=== PATIENT | female | born 1960 | race Caucasian/White ===

== ENCOUNTER 2021-10-10 09:41 | Outpatient (REF) | payer OTHER, SELFPAY ==
[2021-10-10 10:20] LABS: MANUAL DIFF FLAG NO
[2021-10-10 10:41] LABS: Basophils Percent Auto 0.3 % (0-2); Eosinophils Absolute Auto 0.2 X10*3/uL (0.0-0.4); Eosinophils Percent Auto 2.4 % (0-4); Hematocrit 38.7 % (37.0-47.0); Hemoglobin 12.4 g/dl (12.0-16.0); Imm Gran Abs Auto 0.04 X10*3/uL (0.00-0.03); Imm Gran Pct Auto 0.5 % (0.0-0.4); Lymphocytes Absolute Auto 1.7 X10*3/uL (1.2-4.9); Lymphocytes Percent Auto 21.9 % (20-40); Mean Corpuscular Hemoglobin 28.9 pg (27.0-33.0); Mean Corpuscular Volume 90.2 fL (80.0-98.0); Mean Platelet Volume 9.6 fL (9.4-12.3); Monocytes Absolute Auto 0.5 X10*3/uL (0.1-1.2); Neutrophils Absolute Auto 5.1 x10*3/uL (2.0-8.3); Neutrophils Percent Auto 67.9 % (45-73); Platelet Count 384 X10*3/uL (160-400); Red Blood Count 4.29 X10*6/uL (4.20-5.50); Red Cell Distribution Width 13.2 % (11.0-16.0); White Blood Count 7.6 X10*3/uL (4.8-10.8)
[2021-10-10 10:58] LABS: Appearance Urine CLEAR; Color Urine STRAW; Glucose Urine UA NEG (NEG); Leukocyte Esterase Urine 1+ (NEG); Nitrite Urine NEG (NEG); PH 6.5 (5.0-8.0); UACC Culture Trigger YES; Urine Blood NEG (NEG); Urine Ketones NEG (NEG); Urine Protein NEG (NEG-TRACE)
[2021-10-10 11:17] LABS: Alanine Aminotransferase 13 U/L (0-31); Albumin Level 4.6 g/dL (3.5-5.0); Alkaline Phosphatase 115 U/L (39-117); Anion Gap 12 (12-20); Aspartate Amino Transferase 17 U/L (5-31); Bilirubin Total 0.3 mg/dL (0.0-1.0); Blood Urea Nitrogen 18 mg/dL (9-16); Carbon Dioxide 26 mmol/L (22-29); Chloride 107 mmol/L (96-108); Cholesterol 228 mg/dL; Estimated Glomerular Filt Rate 55; Glucose Fasting 90 mg/dL (60-99); HDL Cholesterol 63 mg/dL; LDL Cholesterol Calculated 149 mg/dl; Potassium 4.7 mmol/L (3.3-5.1); Sodium 140 mmol/L (135-145); Total Protein 8.1 g/dL (6.5-8.0); Triglycerides 83 mg/dL
[2021-10-10 11:21] LABS: Bacteria Urine 1+ /LPF; RBC Urine 0 /HPF (0); Squamous Epithelial Cell Urine 1+ /LPF; WBC Urine 0-2 /HPF (0-4)
[2021-10-10 11:23] LABS: Free T4 (Free Thyroxine) 0.97 ng/dL (0.71-1.85); Thyroid Stimulating Hormone 10.76 uIU/mL (0.32-4.0); Vitamin D 25-OH Total 36.6 ng/mL (>30)
[2021-10-10 11:25] LABS: Calcium 11.4 mg/dL (8.4-10.2)
[2021-10-10 11:35] LABS: Estimated Average Glucose 114 mg/dL; Hemoglobin A1c % 5.6 %
== END 2021-10-10 09:42 | disposition home or self-care (01) ==
LOC: HO.LAB 09:41
PROVIDERS: PCP Internal Medicine; Visit Provider Internal Medicine
DX: I10 Essential (primary) hypertension (principal); E78.00 Pure hypercholesterolemia, unspecified; R63.1 Polydipsia; R73.9 Hyperglycemia, unspecified; E03.9 Hypothyroidism, unspecified; E55.9 Vitamin D deficiency, unspecified
CPT/HCPCS: 36415; 80053; 80061; 81001; 81003; 82306; 83036; 84439; 84443; 85025; 87086

== ENCOUNTER 2021-10-24 15:52 | Outpatient (REF) | payer OTHER, SELFPAY ==
[2021-10-24 16:42] LABS: Appearance Urine CLEAR; Color Urine YELLOW; Glucose Urine UA NEG (NEG); Leukocyte Esterase Urine 1+ (NEG); Nitrite Urine NEG (NEG); PH 5.5 (5.0-8.0); Specific Gravity - Urine <= 1.005 (1.005-1.025); UACC Culture Trigger YES; Urine Blood NEG (NEG); Urine Ketones NEG (NEG); Urine Protein NEG (NEG-TRACE)
[2021-10-24 16:51] LABS: Bacteria Urine TRACE /LPF; Squamous Epithelial Cell Urine 1+ /LPF
[2021-10-24 16:52] LABS: RBC Urine 0 /HPF (0)
[2021-10-25 07:41] LABS: HBsAGNum1 0.21 S/CO (0.00-0.99); Hepatitis B Surface Antigen Negative (Negative); ~HepC Num1 0.09 S/CO (0.00-0.79); ~Hepatitis C Antibody Nonreactive (Nonreactive)
[2021-10-25 07:56] LABS: HBS Num1 0.05 mIU/mL (0-7.99); HBc Num1 0.09 S/CO (0.00-0.79); HIV AB/AG Nonreactive (Nonreactive); HIV Num 1 0.05 S/CO (0.00-0.99); Hepatitis B Core Antibody Nonreactive (Nonreactive); ~Hepatitis B Surface Antibody NONREACTIVE (Nonreactive)
== END 2021-10-24 15:53 | disposition home or self-care (01) ==
LOC: HO.LAB 15:52
PROVIDERS: PCP Internal Medicine; Visit Provider Internal Medicine
DX: I10 Essential (primary) hypertension (principal); Z11.4 Encounter for screening for human immunodeficiency virus [HIV]; Z11.59 Encounter for screening for other viral diseases
CPT/HCPCS: 36415; 81001; 86704; 86706; 86803; 87086; 87340; 87389

== ENCOUNTER 2022-01-21 06:49 | Outpatient (REF) | payer OTHER, SELFPAY ==
[2022-01-21 07:36] LABS: Basophils Percent Auto 0.4 % (0-2); Imm Gran Abs Auto 0.03 X10*3/uL (0.00-0.03); Imm Gran Pct Auto 0.4 % (0.0-0.4); MANUAL DIFF FLAG SCAN; Mean Platelet Volume 10.2 fL (9.4-12.3); Monocytes Absolute Auto 0.6 X10*3/uL (0.1-1.2); Monocytes Percent Auto 7.5 % (2-11); PLT CLUMP 1; Red Cell Distribution Width 12.7 % (11.0-16.0); SCAN SMEAR FLAG 1
[2022-01-21 07:36] LABS: Appearance Urine CLEAR; Color Urine YELLOW; Glucose Urine UA NEG (NEG); Leukocyte Esterase Urine TRACE (NEG); Nitrite Urine NEG (NEG); PH 5.5 (5.0-8.0); Specific Gravity - Urine 1.025 (1.005-1.025); Urine Blood NEG (NEG); Urine Ketones NEG (NEG); Urine Protein NEG (NEG-TRACE)
[2022-01-21 07:38] LABS: Eosinophils Absolute Auto 0.1 X10*3/uL (0.0-0.4); Eosinophils Percent Auto 1.6 % (0-4); Hematocrit 35.4 % (37.0-47.0); Hemoglobin 11.7 g/dl (12.0-16.0); Lymphocytes Absolute Auto 1.4 X10*3/uL (1.2-4.9); Lymphocytes Percent Auto 18.5 % (20-40); Mean Corpuscular HGB Conc 33.1 g/dl (31.0-35.0); Mean Corpuscular Hemoglobin 29.4 pg (27.0-33.0); Mean Corpuscular Volume 88.9 fL (80.0-98.0); Neutrophils Absolute Auto 5.3 x10*3/uL (2.0-8.3); Neutrophils Percent Auto 71.6 % (45-73); Red Blood Count 3.98 X10*6/uL (4.20-5.50)
[2022-01-21 07:44] LABS: Squamous Epithelial Cell Urine 3+ /LPF
[2022-01-21 07:46] LABS: Bacteria Urine TRACE /LPF; RBC Urine 0-2 /HPF (0)
[2022-01-21 08:12] LABS: Alanine Aminotransferase 17 U/L (0-31); Albumin Level 4.2 g/dL (3.5-5.0); Alkaline Phosphatase 94 U/L (39-117); Anion Gap 11 (12-20); Aspartate Amino Transferase 16 U/L (5-31); Bilirubin Total 0.3 mg/dL (0.0-1.0); Blood Urea Nitrogen 20 mg/dL (9-16); Calcium 10.4 mg/dL (8.4-10.2); Carbon Dioxide 23 mmol/L (22-29); Chloride 109 mmol/L (96-108); Cholesterol 177 mg/dL; Estimated Glomerular Filt Rate > 60; Glucose Fasting 97 mg/dL (60-99); HDL Cholesterol 54 mg/dL; LDL Cholesterol Calculated 106 mg/dl; Lactate Dehydrogenase 173 U/L (122-220); Phosphorus 2.5 mg/dL (2.7-4.5); Potassium 4.3 mmol/L (3.3-5.1); Sodium 139 mmol/L (135-145); Total Protein 7.3 g/dL (6.5-8.0); Triglycerides 85 mg/dL
[2022-01-21 08:24] LABS: HBS Num1 2.49 mIU/mL (0-7.99); HBc Num1 0.06 S/CO (0.00-0.79); HBsAGNum1 0.16 S/CO (0.00-0.99); HIV AB/AG Nonreactive (Nonreactive); HIV Num 1 0.07 S/CO (0.00-0.99); Hepatitis B Core Antibody Nonreactive (Nonreactive); Hepatitis B Surface Antigen Negative (Negative); ~HepC Num1 0.07 S/CO (0.00-0.79); ~Hepatitis B Surface Antibody NONREACTIVE (Nonreactive); ~Hepatitis C Antibody Nonreactive (Nonreactive)
[2022-01-21 08:29] LABS: White Blood Count 7.4 X10*3/uL (4.8-10.8)
[2022-01-21 08:30] LABS: Platelet Count 306 X10*3/uL (160-400)
[2022-01-21 08:37] LABS: Free T4 (Free Thyroxine) 1.38 ng/dL (0.71-1.85); Thyroid Stimulating Hormone 1.56 uIU/mL (0.32-4.0); Vitamin D 25-OH Total 35.9 ng/mL (>30)
[2022-01-21 08:56] LABS: SLIDE REVIEW VERIFIED
[2022-01-22 14:11] LABS: Calcium (PTHI) 10.2 mg/dL (8.6-10.4); PTHI 114 pg/mL (16-77)
[2022-01-22 23:32] LABS: HCV Log PCR <1.18 NOT DETECTED Log IU/mL (NOT DETECTED); HepC Viral Load <15 NOT DETECTED IU/mL (NOT DETECTED)
[2022-01-26 02:42] LABS: Thyroxine Binding Globulin 16.7 mcg/mL (13.5-30.9)
[2022-01-26 16:31] LABS: Triiodothyronine T3 Reverse 15 ng/dL (8-25)
== END 2022-01-21 06:50 | disposition home or self-care (01) ==
LOC: HO.LAB 06:49
PROVIDERS: PCP Internal Medicine; Visit Provider Internal Medicine
DX: S61.239A Puncture wound without foreign body of unspecified finger without damage to nail, initial encounter (principal); I10 Essential (primary) hypertension; E55.9 Vitamin D deficiency, unspecified; R79.89 Other specified abnormal findings of blood chemistry; E03.9 Hypothyroidism, unspecified; E83.52 Hypercalcemia; E78.00 Pure hypercholesterolemia, unspecified; W46.0XXA Contact with hypodermic needle, initial encounter; Y93.9 Activity, unspecified; Y92.9 Unspecified place or not applicable; Y99.9 Unspecified external cause status
CPT/HCPCS: 36415; 80053; 80061; 81001; 82306; 83615; 83970; 84100; 84439; 84442; 84443; 84482; 85025; 86704; 86706; 86803; 87340; 87389; 87522

== ENCOUNTER 2022-02-07 17:32 | Emergency (ER) | payer OTHER, SELFPAY ==
[2022-02-07 17:46] VITALS: BP 140/71; PULSE 68; RESP 18; TEMP 36.5; O2SAT 97; BMI 38.7
[2022-02-07 19:16] LABS: MANUAL DIFF FLAG NO
[2022-02-07 19:17] LABS: Basophils Percent Auto 0.3 % (0-2); Eosinophils Absolute Auto 0.2 X10*3/uL (0.0-0.4); Hematocrit 33.6 % (37.0-47.0); Hemoglobin 11.2 g/dl (12.0-16.0); Imm Gran Abs Auto 0.02 X10*3/uL (0.00-0.03); Imm Gran Pct Auto 0.3 % (0.0-0.4); Lymphocytes Percent Auto 30.8 % (20-40); Mean Corpuscular HGB Conc 33.3 g/dl (31.0-35.0); Mean Corpuscular Hemoglobin 29.1 pg (27.0-33.0); Mean Corpuscular Volume 87.3 fL (80.0-98.0); Mean Platelet Volume 9.3 fL (9.4-12.3); Monocytes Absolute Auto 0.6 X10*3/uL (0.1-1.2); Monocytes Percent Auto 9.7 % (2-11); Neutrophils Absolute Auto 3.6 x10*3/uL (2.0-8.3); Neutrophils Percent Auto 55.9 % (45-73); Platelet Count 347 X10*3/uL (160-400); Red Blood Count 3.85 X10*6/uL (4.20-5.50); Red Cell Distribution Width 12.5 % (11.0-16.0); White Blood Count 6.4 X10*3/uL (4.8-10.8)
[2022-02-07 19:32] LABS: Alanine Aminotransferase 14 U/L (0-31); Albumin Level 4.1 g/dL (3.5-5.0); Alkaline Phosphatase 90 U/L (39-117); Anion Gap 10 (12-20); Aspartate Amino Transferase 17 U/L (5-31); Bilirubin Total 0.2 mg/dL (0.0-1.0); Blood Urea Nitrogen 22 mg/dL (9-16); Calcium 10.2 mg/dL (8.4-10.2); Carbon Dioxide 28 mmol/L (22-29); Chloride 105 mmol/L (96-108); Creatinine Clr Calc Pharmacy 51.5; Estimated Glomerular Filt Rate 50; Glucose Random 96 mg/dL (60-115); Potassium 4.5 mmol/L (3.3-5.1); Sodium 138 mmol/L (135-145)
[2022-02-07 21:08] VITALS: BP 152/59; PULSE 67; RESP 17; TEMP 36.9; O2SAT 98
--- NOTE | 2022-02-07 21:18 | ED_ITS ---
HPI - Extremity Problem General Chief complaint: General Medical Stated complaint: muscle cramps, dehydrated?, body pain Time Seen by Provider: 02/07/22 21:08 Source: patient Mode of arrival: ambulatory Limitations: no limitations History of Present Illness MD Complaint: other (leg cramps) Onset (ago): day(s) (3) Pain Consistency: intermittent Location: left, right and lower extremity Quality: aching and dull Radiation: none Relieving factors: nothing Exacerbating factors: nothing Associated symptoms: denies other symptoms Context: other (hx of similar bout in past was lyte imbalance) Related Data Previous Rx's Medication Instructions Recorded cholecalciferol (vitamin D3) 50 50 mcg PO DAILY #90 cap 03/13/21 mcg (2,000 unit) capsule hydrochlorothiazide 25 mg tablet 25 mg PO DAILY 90 Days #90 tab 10/10/21 levothyroxine 125 mcg tablet 125 mcg PO QAM #90 tab 11/20/21 valsartan 160 mg tablet 160 mg PO BID #180 tab 12/13/21 cyclobenzaprine 10 mg tablet 10 mg PO TID PRN #14 tab 02/07/22 Allergies Allergy/AdvReac Type Severity Reaction Status Date / Time vancomycin [VANCOMYCIN] Allergy Intermediate SWELLING Verified 02/07/22 17:49 levofloxacin [From Levaquin] Allergy Unknown RASH Verified 02/07/22 17:49 Review of Systems Review of Systems: Constitutional : No Weight loss, No Fever, No Chills, No Fatigue, No Malaise, no tick bites ENT/Mouth : No sore throat, No Rhinorrhea Eyes: No Eye Pain, No Swelling, No Redness Cardiovascular : No Chest Pain, No SOB, No Dyspnea on Exertion, No Orthopnea, No Edema, No Palpitations Respiratory : No Cough, No Sputum, No Wheezing Gastrointestinal : No Nausea, No Vomiting, No Diarrhea, No Constipation, No abdominal Pain, No Hematochezia, No Melena Genitourinary : No Dysuria, No Urinary Frequency, No Hematuria, Musculoskeletal : No joint pain, pos Myalgias, No Joint Swelling Skin : No Skin Lesions, No rash Neuro : No Weakness, No Numbness, No Dizziness, No Headache Psych : No Anxiety/Panic, No Depression Heme/Lymph: No Bruising, No Bleeding,No Lymphadenopathy Endocrine : No Polyuria, No Polydipsia All other systems reviewed and are negative PMFSH Past Medical History Attestation statement: The following information was validated with the patient. Medical History Acquired hypothyroidism Benign essential hypertension History of melanoma History of opioid abuse Hypercalcemia Obesity (BMI 30-39.9) Pure hypercholesterolemia Vitamin D deficiency Surgical History History of surgery Family History Family History Father No problems noted. Mother Cancer Other Mental health problem Substance abuse Social History Social History Housing: Apartment Alcohol intake: former Patient Tobacco Use Status: Former Tobacco user e-Cigarette/Vaping Use: Never Used Second Hand Smoke Exposure: Yes Advance Directives: No Advance Directives Information Provided: Yes Patient : No service: No Current occupational status: disabled Cognitive needs: No Hearing needs: No Vision needs: Yes Physical Exam Vital Signs: Vital Signs: Last Vital Signs Temp 98.4 F 02/07/22 21:08 Pulse 67 02/07/22 21:08 Resp 17 02/07/22 21:08 BP 152/59 H 02/07/22 21:08 Pulse Ox 98 02/07/22 21:08 BMI result Body Mass Index 38.7 Appearance: Alert. Oriented X3. No acute distress. Eyes: Pupils equal, round and reactive to light. ENT: Pharynx normal. Neck: Normal inspection. Neck supple. CVS: Normal heart rate and rhythm. Pulses normal. Respiratory: No respiratory distress. Breath sounds normal. Abdomen: Soft and nontender. Skin: Skin warm and dry. Normal skin color. Normal skin turgor. Extremities: No lower extremity edema. No calf ttp Mild thigh pain but no signs of rash distal NV intact able to walk compartments are soft and compressible Neuro: Oriented X 3. No motor deficit. No sensory deficit. Course Course Course Narrative: workup negative stable for DC MDM - Extremity (Nontraumatic) MDM Narrative Medical decision making narrative: 61 yo female hx of HLD, HTN, opiate abuse here with c/o leg cramps x 3 nights no recent GI illness, trauma, insect bites or tick bites - distal NV intact at this time. States last time this happened she had a lyte imbalance - lytes from triage normal will obtain COVID swab add on magnesium and RX flexeril. Will offer flexeril RX for home. Can follow up with PCP. Denies diuretic use at home Lab Data Result diagrams: 02/07/22 19:09 02/07/22 19:09 Labs: Lab Results 02/07/22 02/07/22 02/07/22 Range/Units 19:09 19:09 21:38 WBC 6.4 (4.8-10.8) X10*3/uL RBC 3.85 L (4.20-5.50) X10*6/uL Hgb 11.2 L (12.0-16.0) g/dl Hct 33.6 L (37.0-47.0) % MCV 87.3 (80.0-98.0) fL MCH 29.1 (27.0-33.0) pg MCHC 33.3 (31.0-35.0) g/dl RDW 12.5 (11.0-16.0) % Plt Count 347 (160-400) X10*3/uL MPV 9.3 L (9.4-12.3) fL Immature Gran % (Auto) 0.3 (0.0-0.4) % Neut % (Auto) 55.9 (45-73) % Lymph % (Auto) 30.8 (20-40) % [place] % (Auto) 9.7 (2-11) % Eos % (Auto) 3.0 (0-4) % Baso % (Auto) 0.3 (0-2) % Lymph # (Auto) 2.0 (1.2-4.9) X10*3/uL [place] # (Auto) 0.6 (0.1-1.2) X10*3/uL Eos # (Auto) 0.2 (0.0-0.4) X10*3/uL Baso # (Auto) 0.0 (0.0-0.2) X10*3/uL Abs Immat Gran (auto) 0.02 (0.00-0.03) X10*3/uL Absolute Neuts (auto) 3.6 (2.0-8.3) x10*3/uL Absolute Nucleated RBC 0.000 (0.0-0.012) X10*3/uL Nucleated RBC % (auto) 0.0 (0.0-0.2) /100WBC Sodium 138 (135-145) mmol/L Potassium 4.5 (3.3-5.1) mmol/L Chloride 105 (96-108) mmol/L Carbon Dioxide 28 (22-29) mmol/L Anion Gap 10 L (12-20) BUN 22 H (9-16) mg/dL Creatinine 1.10 (0.5-1.4) mg/dL Estim Creat Clear Calc 51.5 Estimated GFR 50 Random Glucose 96 (60-115) mg/dL Calcium 10.2 (8.4-10.2) mg/dL Magnesium 2.2 (1.6-2.6) mg/dL Total Bilirubin 0.2 (0.0-1.0) mg/dL AST 17 (5-31) U/L ALT 14 (0-31) U/L Alkaline Phosphatase 90 (39-117) U/L Total Creatine Kinase (26-140) U/L Total Protein 7.0 (6.5-8.0) g/dL Albumin 4.1 (3.5-5.0) g/dL COVID-19 (FEDE) Negative (Negative) COVID-19 Clin Com See Note 02/07/22 Range/Units 21:41 WBC (4.8-10.8) X10*3/uL RBC (4.20-5.50) X10*6/uL Hgb (12.0-16.0) g/dl Hct (37.0-47.0) % MCV (80.0-98.0) fL MCH (27.0-33.0) pg MCHC (31.0-35.0) g/dl RDW (11.0-16.0) % Plt Count (160-400) X10*3/uL MPV (9.4-12.3) fL Immature Gran % (Auto) (0.0-0.4) % Neut % (Auto) (45-73) % Lymph % (Auto) (20-40) % [place] % (Auto) (2-11) % Eos % (Auto) (0-4) % Baso % (Auto) (0-2) % Lymph # (Auto) (1.2-4.9) X10*3/uL [place] # (Auto) (0.1-1.2) X10*3/uL Eos # (Auto) (0.0-0.4) X10*3/uL Baso # (Auto) (0.0-0.2) X10*3/uL Abs Immat Gran (auto) (0.00-0.03) X10*3/uL Absolute Neuts (auto) (2.0-8.3) x10*3/uL Absolute Nucleated RBC (0.0-0.012) X10*3/uL Nucleated RBC % (auto) (0.0-0.2) /100WBC Sodium (135-145) mmol/L Potassium (3.3-5.1) mmol/L Chloride (96-108) mmol/L Carbon Dioxide (22-29) mmol/L Anion Gap (12-20) BUN (9-16) mg/dL Creatinine (0.5-1.4) mg/dL Estim Creat Clear Calc Estimated GFR Random Glucose (60-115) mg/dL Calcium (8.4-10.2) mg/dL Magnesium (1.6-2.6) mg/dL Total Bilirubin (0.0-1.0) mg/dL AST (5-31) U/L ALT (0-31) U/L Alkaline Phosphatase (39-117) U/L Total Creatine Kinase 121 (26-140) U/L Total Protein (6.5-8.0) g/dL Albumin (3.5-5.0) g/dL COVID-19 (FEDE) (Negative) COVID-19 Clin Com Discharge Plan Discharge Clinical Impression: Myalgia Patient Disposition: Home, Self-Care Instructions: Musculoskeletal Pain (ED) Additional Instructions: return to ED for any worsening symptoms or concerns no dehydration, no COVID, normal electrolytes Prescriptions: New cyclobenzaprine 10 mg tablet 10 mg PO TID PRN (Reason: muscle spasm) Qty: 14 0RF No Action cholecalciferol (vitamin D3) 50 mcg (2,000 unit) capsule 50 mcg PO DAILY Qty: 90 8RF levothyroxine 125 mcg tablet 125 mcg PO QAM Qty: 90 2RF valsartan 160 mg tablet 160 mg PO BID Qty: 180 1RF hydrochlorothiazide 25 mg tablet 25 mg PO DAILY 90 Days Qty: 90 1RF Referrals: Steven Dejesus MD [Primary Care Provider] - 3 days (if not better)
[2022-02-07] MEDS: Cyclobenzaprine HCl 10 MG TABLET PO (21:36)
[2022-02-07 21:54] LABS: Magnesium 2.2 mg/dL (1.6-2.6)
[2022-02-07 22:04] LABS: COVID-19 Test Negative (Negative)
== END 2022-02-07 22:45 | disposition home or self-care (01) ==
PROVIDERS: Emergency Provider Emergency Medicine; PCP Internal Medicine
DX: M79.10 Myalgia, unspecified site (principal); I10 Essential (primary) hypertension; Z20.822 Contact with and (suspected) exposure to COVID-19
CPT/HCPCS: 36415; 80053; 82550; 83735; 85025; 87635; 99283

== ENCOUNTER 2022-09-17 11:36 | Outpatient (REF) | payer OTHER, SELFPAY ==
[2022-09-17 11:50] LABS: MANUAL DIFF FLAG NO
[2022-09-17 12:05] LABS: Basophils Percent Auto 0.3 % (0-2); Eosinophils Absolute Auto 0.1 X10*3/uL (0.0-0.4); Eosinophils Percent Auto 1.9 % (0-4); Hematocrit 35.1 % (37.0-47.0); Hemoglobin 11.3 g/dl (12.0-16.0); Imm Gran Abs Auto 0.03 X10*3/uL (0.00-0.03); Imm Gran Pct Auto 0.4 % (0.0-0.4); Lymphocytes Absolute Auto 1.5 X10*3/uL (1.2-4.9); Lymphocytes Percent Auto 21.9 % (20-40); Mean Corpuscular HGB Conc 32.2 g/dl (31.0-35.0); Mean Corpuscular Hemoglobin 28.5 pg (27.0-33.0); Mean Corpuscular Volume 88.6 fL (80.0-98.0); Mean Platelet Volume 9.3 fL (9.4-12.3); Monocytes Absolute Auto 0.6 X10*3/uL (0.1-1.2); Neutrophils Absolute Auto 4.7 x10*3/uL (2.0-8.3); Neutrophils Percent Auto 67.5 % (45-73); Platelet Count 373 X10*3/uL (160-400); Red Blood Count 3.96 X10*6/uL (4.20-5.50); White Blood Count 6.9 X10*3/uL (4.8-10.8)
[2022-09-17 12:58] LABS: Alanine Aminotransferase 17 U/L (0-31); Albumin Level 4.3 g/dL (3.5-5.0); Alkaline Phosphatase 96 U/L (39-117); Anion Gap 11 (12-20); Aspartate Amino Transferase 19 U/L (5-31); Bilirubin Total 0.2 mg/dL (0.0-1.0); Blood Urea Nitrogen 27 mg/dL (9-16); Calcium 10.2 mg/dL (8.4-10.2); Carbon Dioxide 28 mmol/L (22-29); Chloride 108 mmol/L (96-108); Cholesterol 188 mg/dL; Estimated Glomerular Filt Rate 44; Free T4 (Free Thyroxine) 1.13 ng/dL (0.71-1.85); Glucose Fasting 72 mg/dL (60-99); HDL Cholesterol 56 mg/dL; LDL Cholesterol Calculated 114 mg/dl; Potassium 4.5 mmol/L (3.3-5.1); Sodium 142 mmol/L (135-145); Triglycerides 94 mg/dL
[2022-09-18 17:53] LABS: Calcium (PTHI) 10.1 mg/dL (8.6-10.4); PTHI 163 pg/mL (16-77)
== END 2022-09-17 11:37 | disposition home or self-care (01) ==
LOC: HO.LAB 11:36
PROVIDERS: PCP Internal Medicine; Visit Provider Internal Medicine
DX: E03.9 Hypothyroidism, unspecified (principal); E34.9 Endocrine disorder, unspecified; I10 Essential (primary) hypertension; E78.00 Pure hypercholesterolemia, unspecified
CPT/HCPCS: 36415; 80053; 80061; 83970; 84439; 84443; 85025

== ENCOUNTER 2022-09-19 13:06 | Emergency (ER) | payer OTHER, SELFPAY ==
--- NOTE | ~2022-09-19 | XR_ITS ---
EXAMINATION: XR TIBIA AND FIBULA, LEFT CLINICAL INFORMATION: Cellulitis, worsening despite antibiotics COMPARISON: Left tibia and fibula radiographs 11/11/2011 TECHNIQUE: AP and lateral views of the left tibia and fibula were obtained. FINDINGS: Now fracture or dislocation. No osseous destructive change or periostitis. No osseous lesion. Relatively diffuse subcutaneous edema/reticulation. No tracking soft tissue gas. No radiodense foreign body. Spurring of the tibial spines and small medial and patellofemoral compartment osteophytes at the knee consistent with mild osteoarthritis. Minimal osteophyte formation at the ankle joint. XR/XR tibia fibula LT 2V IMPRESSION: 1. No acute osseous injury or radiographic evidence of advanced osteomyelitis. 2. Diffuse subcutaneous edema/reticulation. No tracking soft tissue gas.
[2022-09-19 14:25] VITALS: BP 131/81; PULSE 62; RESP 20; TEMP 35.6; O2SAT 98; BMI 40.1
--- NOTE | 2022-09-19 14:25 | ED.SKABFB ---
HPI - Skin/Abscess/Foreign Bdy General Chief complaint: Extremity Problem <Susannah Yoder CNP - Last Filed: 09/19/22 14:31> Stated complaint: cellulitis l leg <Susannah Yoder CNP - Last Filed: 09/19/22 14:31> Time Seen by Provider: 09/19/22 16:02 <Susannah Yoder CNP - Last Filed: 09/19/22 14:31> Source: patient <WM Hayden - Last Filed: 09/19/22 16:53> Mode of arrival: ambulatory <WM Hayden Last Filed: 09/19/22 16:53> Limitations: no limitations <WM Hayden Last Filed: 09/19/22 16:53> History of Present Illness HPI narrative: 61-year-old female history of anxiety, hypercalcemia secondary to hyperparathyroid, history of opiate abuse, history of melanoma with metastasis to lymph nodes status post lymph node resection to left lower extremity, hypothyroidism presenting to the emergency department with complaints of non resolving cellulitis to the left anterior greco x1 week patient tells me she is currently on doxycycline and has been on it for two days, despite this, redness and swelling worsening. Patient also reports that over the past week her left lower extremity has been more swollen than the right. She tells me at baseline her left lower extremity is usually larger than her right lower extremity however now worse than her baseline. Patient denies fevers, chills, numbness, tingling, chest pain, shortness of breath headache, vision changes, dizziness, body aches and pains. <WM Hayden - Last Filed: 09/19/22 16:53> Related Data Home medications: Previous Rx's Medication Instructions Recorded cyclobenzaprine 10 mg tablet 10 mg PO TID PRN muscle spasm #14 02/07/22 tabs hydrochlorothiazide 25 mg tablet 25 mg PO DAILY 90 days #90 tabs 04/22/22 valsartan 160 mg tablet 160 mg PO BID #180 tabs 06/16/22 cholecalciferol (vitamin D3) 50 50 mcg PO DAILY #90 caps 08/22/22 mcg (2,000 unit) capsule doxycycline monohydrate 100 mg 100 mg PO BID 10 days #20 caps 09/17/22 capsule levothyroxine 125 mcg tablet 125 mcg PO QAM #90 tabs 09/17/22 cephalexin 500 mg tablet 500 mg PO Q6H 10 days #40 tabs 09/19/22 <Susannah Yoder CNP - Last Filed: 09/19/22 14:31> Allergies/Adverse reactions: Allergies Allergy/AdvReac Type Severity Reaction Status Date / Time vancomycin [VANCOMYCIN] Allergy Intermediate SWELLING Verified 09/17/22 11:16 levofloxacin [From Levaquin] Allergy Unknown RASH Verified 09/17/22 11:16 <Susannah Yoder CNP - Last Filed: 09/19/22 14:31> Review of Systems Review of Systems: Constitutional : No Weight loss, No Fever, No Chills, No Fatigue, No Malaise ENT/Mouth : No sore throat, No Rhinorrhea Eyes: No Eye Pain, No Swelling, No Redness Cardiovascular : No Chest Pain, No SOB, No Dyspnea on Exertion, No Orthopnea, No Edema, No Palpitations Respiratory : No Cough, No Sputum, No Wheezing Gastrointestinal : No Nausea, No Vomiting, No Diarrhea, No Constipation, No abdominal Pain, No Hematochezia, No Melena Genitourinary : No Dysuria, No Urinary Frequency, No Hematuria, Musculoskeletal : No joint pain, No Myalgias, No Joint Swelling, +LLE swelling and redness Skin : No Skin Lesions, No rash Neuro : No Weakness, No Numbness, No Dizziness, No Headache Psych : No Anxiety/Panic, No Depression All other systems reviewed and are negative <WM Hayden - Last Filed: 09/19/22 16:53> Yes all other systems are reviewed and are negative <WM Hayden - Last Filed: 09/19/22 16:53> [facility] Past Medical History Attestation statement: The following information was validated with the patient. <WM Hayden Last Filed: 09/19/22 16:53> Source: old records reviewed and nursing notes reviewed <WM Hayden Last Filed: 09/19/22 16:53> Medical History: Medical History Acquired hypothyroidism Benign essential hypertension History of melanoma History of opioid abuse Hypercalcemia Obesity (BMI 30-39.9) Pure hypercholesterolemia Vitamin D deficiency <Susannah Yoder CNP - Last Filed: 09/19/22 14:31> Surgical History: Surgical History History of surgery <Susannah Yoder CNP - Last Filed: 09/19/22 14:31> Family History Family History: Family History Father No problems noted. Mother Cancer Other Mental health problem Substance abuse <Susannah Yoder CNP - Last Filed: 09/19/22 14:31> Social History Social History: Social History Housing: Apartment Alcohol intake: former Patient Tobacco Use Status: Former Tobacco user Smoked in Last 30 Days: No e-Cigarette/Vaping Use: Never Used Second Hand Smoke Exposure: Yes Use of substances other than those prescribed or required for medical reasons: No Advance Directives: No Advance Directives Information Provided: No Patient : No service: No Current occupational status: disabled Cognitive needs: No Hearing needs: No Vision needs: Yes <Susannah Yoder CNP - Last Filed: 09/19/22 14:31> Physical Exam Vital Signs: Vital Signs: Last Vital Signs Temp 96.0 F L 09/19/22 14:25 Pulse 62 09/19/22 14:25 Resp 20 09/19/22 14:25 BP 131/81 09/19/22 14:25 Pulse Ox 98 09/19/22 14:25 O2 Del Method 09/19/22 14:25 BMI result Body Mass Index 40.1 <Susannah Yoder CNP - Last Filed: 09/19/22 14:31> Vital Signs: Last Vital Signs Temp 96.0 F L 09/19/22 14:25 Pulse 62 09/19/22 14:25 Resp 20 09/19/22 14:25 BP 131/81 09/19/22 14:25 Pulse Ox 98 09/19/22 14:25 O2 Del Method 09/19/22 14:25 BMI result Body Mass Index 40.1 vss <WM Hayden - Last Filed: 09/19/22 16:53> Appearance: Alert.? Oriented X3.? No acute distress.? Head: Normocephalic, atraumatic, no step-offs or deformities Eyes: Pupils equal, round and reactive to light.? ENT: Pharynx normal.? Neck: Normal inspection.? Neck supple.? CVS: Normal heart rate and rhythm.? Pulses normal.? Respiratory: No respiratory distress.? Breath sounds normal.? Abdomen: Soft and nontender.? Skin: Skin warm and dry.? Normal skin color.? Normal skin turgor.?+ small area 4 cm x 5 cm of cellulitis to left anterior greco. Extremities: 2+ nonpitting edema to the left lower extremity, 1+ to the right lower extremity from the knee jorge.? No calf ttp, negative enzo b/l . 5/5 strength to bilateral upper and lower extremities 2+ dorsalis pedis, anterior tibialis, posterior tibialis pulses equal bilateral pain Back: No midline tenderness, no C-spine tenderness, full range of motion, no CVA tenderness bilaterally Neuro: Oriented X 3.? No motor deficit.? No sensory deficit. CN 2-12 intact <WM Hayden - Last Filed: 09/19/22 16:53> Course Course Course Narrative: This is an RME: Additional HPI, ROS, PE not included below will be deferred to primary provider. Patient is a 61-year-old female who presents to the emergency department for complaints of cellulitis, atraumatic. She reports 2 days ago was seen by PCP, provided with RX for doxycycline for cellulitis to LLE, anteriorly, superior to ankle. Reports the redness is increasing in size despite antibiotic. Denies known injury, or preceding wound/lesion/rash. also reporting associated headache, dizziness, body aches. Denies fevers, chills, history of MRSA infection. Plan: labs, XR tib/fib, viral testing (recently in hospital with ill mother and having generalized symptoms) does not meet SIRs criteria, <Susannah Yoder CNP - Last Filed: 09/19/22 14:31> Reevaluation(s) Reevaluation #1: CBC appears to be around patient's baseline. Chemistry appears to be around patient's baseline, does not require any intervention. COVID and influenza negative. Lactic acid and D-dimer pending <WM Hayden - Last Filed: 09/19/22 16:53> Time: 16:33 <WM Hayden - Last Filed: 09/19/22 16:53> Reevaluation #2: Lactic acid within normal limits. D-dimer negative, therefore low suspicion for DVT. Negative Enzo on exam. I will discharge patient home on Keflex for additional coverage. I did have a conversation with patient explained to her that antibiotics do not work overnight in the take time therefore she should give it a few more days. Explained to patient if symptoms worsen she should return for re-evaluation. I did tell her to return in 2-3 days for wound check return sooner if worsening. Educated patient on diagnosis and treatment plan, answered all question, patient verbalizes understanding. At this time patient will be discharged home, advised to return with new or worsening symptoms. Educated on worrisome signs and symptoms and when to return. At this time I feel comfortable discharge home. <WM Hayden - Last Filed: 09/19/22 16:53> Time: 16:52 <WM Hayden - Last Filed: 09/19/22 16:53> Medical Decision Making Medical Decision Making [facility] Narrative: 1610 61-year-old female presents with cellulitis of the left anterior greco, currently on doxycycline for 2 days and despite this reports worsening infection. Denies numbness and tingling. Does however report associated swelling to left lower extremity. Physical exam 2+ nonpitting edema to the left lower extremity, 1+ to the right lower extremity from the knee down.? No calf ttp, negative enzo b/l . 5/5 strength to bilateral upper and lower extremities. Small area 4 cm x 5 cm of cellulitis to left anterior greco. History and physical examination consistent with cellulitis unlikely septic joint, erysipelas, necrotizing infection. Low suspicion for DVT however will obtain D-dimer. Plan at this time is basic labs, D-dimer. <WM Hayden Last Filed: 09/19/22 16:53> Lab Data Result Diagrams: : 09/19/22 15:26 09/19/22 15:26 <Susannah Yoder, STOKER E[employer]OR - Last Filed: 09/19/22 14:31> Labs: Lab Results 09/19/22 09/19/22 09/19/22 Range/Units 15:23 15:23 15:26 WBC 8.1 (4.8-10.8) X10*3/uL RBC 3.99 L (4.20-5.50) X10*6/uL Hgb 11.5 L (12.0-16.0) g/dl Hct 35.3 L (37.0-47.0) % MCV 88.5 (80.0-98.0) fL MCH 28.8 (27.0-33.0) pg MCHC 32.6 (31.0-35.0) g/dl RDW 12.8 (11.0-16.0) % Plt Count 361 (160-400) X10*3/uL MPV 9.2 L (9.4-12.3) fL Immature Gran % (Auto) 0.4 (0.0-0.4) % Neut % (Auto) 69.8 (45-73) % Lymph % (Auto) 20.5 (20-40) % Foard % (Auto) 6.7 (2-11) % Eos % (Auto) 2.4 (0-4) % Baso % (Auto) 0.2 (0-2) % Lymph # (Auto) 1.7 (1.2-4.9) X10*3/uL Foard # (Auto) 0.5 (0.1-1.2) X10*3/uL Eos # (Auto) 0.2 (0.0-0.4) X10*3/uL Baso # (Auto) 0.0 (0.0-0.2) X10*3/uL Abs Immat Gran (auto) 0.03 (0.00-0.03) X10*3/uL Absolute Neuts (auto) 5.6 (2.0-8.3) x10*3/uL Absolute Nucleated RBC 0.000 (0.0-0.012) X10*3/uL Nucleated RBC % (auto) 0.0 (0.0-0.2) /100WBC D-Dimer High Sensitivty NG/ML Sodium (135-145) mmol/L Potassium (3.3-5.1) mmol/L Chloride (96-108) mmol/L Carbon Dioxide (22-29) mmol/L Anion Gap (12-20) BUN (9-16) mg/dL Creatinine (0.5-1.4) mg/dL Estim Creat Clear Calc Estimated GFR Random Glucose (60-115) mg/dL Lactic Acid (0.5-2.0) mmol/L Calcium (8.4-10.2) mg/dL Total Bilirubin (0.0-1.0) mg/dL AST (5-31) U/L ALT (0-31) U/L Alkaline Phosphatase (39-117) U/L Total Protein (6.5-8.0) g/dL Albumin (3.5-5.0) g/dL COVID-19 (FEDE) Negative (Negative) COVID-19 Clin Com See Note Influenza Type A (JUN) Negative (Negative) Influenza Type B (JUN) Negative (Negative) Influenza A & B Note See Note 09/19/22 09/19/22 09/19/22 Range/Units 15:26 16:24 16:24 WBC (4.8-10.8) X10*3/uL RBC (4.20-5.50) X10*6/uL Hgb (12.0-16.0) g/dl Hct (37.0-47.0) % MCV (80.0-98.0) fL MCH (27.0-33.0) pg MCHC (31.0-35.0) g/dl RDW (11.0-16.0) % Plt Count (160-400) X10*3/uL MPV (9.4-12.3) fL Immature Gran % (Auto) (0.0-0.4) % Neut % (Auto) (45-73) % Lymph % (Auto) (20-40) % Foard % (Auto) (2-11) % Eos % (Auto) (0-4) % Baso % (Auto) (0-2) % Lymph # (Auto) (1.2-4.9) X10*3/uL Foard # (Auto) (0.1-1.2) X10*3/uL Eos # (Auto) (0.0-0.4) X10*3/uL Baso # (Auto) (0.0-0.2) X10*3/uL Abs Immat Gran (auto) (0.00-0.03) X10*3/uL Absolute Neuts (auto) (2.0-8.3) x10*3/uL Absolute Nucleated RBC (0.0-0.012) X10*3/uL Nucleated RBC % (auto) (0.0-0.2) /100WBC D-Dimer High Sensitivty 164 NG/ML Sodium 140 (135-145) mmol/L Potassium 4.2 (3.3-5.1) mmol/L Chloride 110 H (96-108) mmol/L Carbon Dioxide 25 (22-29) mmol/L Anion Gap 9 L (12-20) BUN 20 H (9-16) mg/dL Creatinine 0.95 (0.5-1.4) mg/dL Estim Creat Clear Calc 60.9 Estimated GFR 60 Random Glucose 109 (60-115) mg/dL Lactic Acid 0.8 (0.5-2.0) mmol/L Calcium 10.5 H (8.4-10.2) mg/dL Total Bilirubin 0.2 (0.0-1.0) mg/dL AST 17 (5-31) U/L ALT 16 (0-31) U/L Alkaline Phosphatase 102 (39-117) U/L Total Protein 7.1 (6.5-8.0) g/dL Albumin 4.2 (3.5-5.0) g/dL COVID-19 (FEDE) (Negative) COVID-19 Clin Com Influenza Type A (JUN) (Negative) Influenza Type B (JUN) (Negative) Influenza A & B Note <Susannah Yoder CNP - Last Filed: 09/19/22 14:31> Lab Results 09/19/22 09/19/22 09/19/22 Range/Units 15:23 15:23 15:26 WBC 8.1 (4.8-10.8) X10*3/uL RBC 3.99 L (4.20-5.50) X10*6/uL Hgb 11.5 L (12.0-16.0) g/dl Hct 35.3 L (37.0-47.0) % MCV 88.5 (80.0-98.0) fL MCH 28.8 (27.0-33.0) pg MCHC 32.6 (31.0-35.0) g/dl RDW 12.8 (11.0-16.0) % Plt Count 361 (160-400) X10*3/uL MPV 9.2 L (9.4-12.3) fL Immature Gran % (Auto) 0.4 (0.0-0.4) % Neut % (Auto) 69.8 (45-73) % Lymph % (Auto) 20.5 (20-40) % Foard % (Auto) 6.7 (2-11) % Eos % (Auto) 2.4 (0-4) % Baso % (Auto) 0.2 (0-2) % Lymph # (Auto) 1.7 (1.2-4.9) X10*3/uL Foard # (Auto) 0.5 (0.1-1.2) X10*3/uL Eos # (Auto) 0.2 (0.0-0.4) X10*3/uL Baso # (Auto) 0.0 (0.0-0.2) X10*3/uL Abs Immat Gran (auto) 0.03 (0.00-0.03) X10*3/uL Absolute Neuts (auto) 5.6 (2.0-8.3) x10*3/uL Absolute Nucleated RBC 0.000 (0.0-0.012) X10*3/uL Nucleated RBC % (auto) 0.0 (0.0-0.2) /100WBC D-Dimer High Sensitivty NG/ML Sodium (135-145) mmol/L Potassium (3.3-5.1) mmol/L Chloride (96-108) mmol/L Carbon Dioxide (22-29) mmol/L Anion Gap (12-20) BUN (9-16) mg/dL Creatinine (0.5-1.4) mg/dL Estim Creat Clear Calc Estimated GFR Random Glucose (60-115) mg/dL Lactic Acid (0.5-2.0) mmol/L Calcium (8.4-10.2) mg/dL Total Bilirubin (0.0-1.0) mg/dL AST (5-31) U/L ALT (0-31) U/L Alkaline Phosphatase (39-117) U/L Total Protein (6.5-8.0) g/dL Albumin (3.5-5.0) g/dL COVID-19 (FEDE) Negative (Negative) COVID-19 Clin Com See Note Influenza Type A (JUN) Negative (Negative) Influenza Type B (JUN) Negative (Negative) Influenza A & B Note See Note 09/19/22 09/19/22 09/19/22 Range/Units 15:26 16:24 16:24 WBC (4.8-10.8) X10*3/uL RBC (4.20-5.50) X10*6/uL Hgb (12.0-16.0) g/dl Hct (37.0-47.0) % MCV (80.0-98.0) fL MCH (27.0-33.0) pg MCHC (31.0-35.0) g/dl RDW (11.0-16.0) % Plt Count (160-400) X10*3/uL MPV (9.4-12.3) fL Immature Gran % (Auto) (0.0-0.4) % Neut % (Auto) (45-73) % Lymph % (Auto) (20-40) % Foard % (Auto) (2-11) % Eos % (Auto) (0-4) % Baso % (Auto) (0-2) % Lymph # (Auto) (1.2-4.9) X10*3/uL Foard # (Auto) (0.1-1.2) X10*3/uL Eos # (Auto) (0.0-0.4) X10*3/uL Baso # (Auto) (0.0-0.2) X10*3/uL Abs Immat Gran (auto) (0.00-0.03) X10*3/uL Absolute Neuts (auto) (2.0-8.3) x10*3/uL Absolute Nucleated RBC (0.0-0.012) X10*3/uL Nucleated RBC % (auto) (0.0-0.2) /100WBC D-Dimer High Sensitivty 164 NG/ML Sodium 140 (135-145) mmol/L Potassium 4.2 (3.3-5.1) mmol/L Chloride 110 H (96-108) mmol/L Carbon Dioxide 25 (22-29) mmol/L Anion Gap 9 L (12-20) BUN 20 H (9-16) mg/dL Creatinine 0.95 (0.5-1.4) mg/dL Estim Creat Clear Calc 60.9 Estimated GFR 60 Random Glucose 109 (60-115) mg/dL Lactic Acid 0.8 (0.5-2.0) mmol/L Calcium 10.5 H (8.4-10.2) mg/dL Total Bilirubin 0.2 (0.0-1.0) mg/dL AST 17 (5-31) U/L ALT 16 (0-31) U/L Alkaline Phosphatase 102 (39-117) U/L Total Protein 7.1 (6.5-8.0) g/dL Albumin 4.2 (3.5-5.0) g/dL COVID-19 (FEDE) (Negative) COVID-19 Clin Com Influenza Type A (JUN) (Negative) Influenza Type B (JUN) (Negative) Influenza A & B Note <WM Hayden - Last Filed: 09/19/22 16:53> Critical Care Time Critical Care Time Critical Care Time: No <WM Hayden - Last Filed: 09/19/22 16:53> Discharge Plan Discharge Clinical Impression: Cellulitis <Susannah Yoder CNP - Last Filed: 09/19/22 14:31> Patient Disposition: Home, Self-Care <Susannah Yoder CNP - Last Filed: 09/19/22 14:31> Instructions: Cellulitis (ED) <Susannah Yoder CNP - Last Filed: 09/19/22 14:31> Additional Instructions: Take your medications as prescribed. If you were prescribed antibiotics today, it is important that you take your medication to their entirety, do not skip any doses, do not finish them early. Follow-up with your primary care provider this week. Return to the emergency department with new or worsening symptoms. Such as fevers, chills, chest pain, shortness of breath, nausea, vomiting, dizziness, headache, vision changes, lethargy Please return if redness or swelling worsens. In case of emergency call 911 You should have wound check done in 2-3 days or sooner if symptoms worsen. [place] carolyn medicamentos seg?n lo prescrito. Si le recetaron antibi?ticos hoy, es importante que tome christina medicamento en christina totalidad, no se salte ninguna dosis, no los termine antes de tiempo. Seguimiento con christina proveedor de atenci?n primaria esta semana. Regrese al departamento de emergencias con s?ntomas nuevos o que empeoran. [place] fiebre, escalofr?os, dolor de pecho, dificultad para respirar, n?useas, v?mitos, mareos, dolor de lory, cambios en la visi?n, letargo Regrese si el enrojecimiento o la hinchaz?n empeoran. En anthony de emergencia llama al 911 Debe hacerse jose manuel revisi?n de la herida en 2 o 3 d?as o antes si los s?ntomas empeoran. <Susannah Yoder, STOKER ERECTOR - Last Filed: 09/19/22 14:31> Prescriptions: New cephalexin 500 mg tablet 500 mg PO Q6H 10 Days Qty: 40 0RF No Action hydrochlorothiazide 25 mg tablet 25 mg PO DAILY 90 Days Qty: 90 1RF valsartan 160 mg tablet 160 mg PO BID Qty: 180 1RF cholecalciferol (vitamin D3) 50 mcg (2,000 unit) capsule 50 mcg PO DAILY Qty: 90 3RF levothyroxine 125 mcg tablet 125 mcg PO QAM Qty: 90 2RF cyclobenzaprine 10 mg tablet 10 mg PO TID PRN (Reason: muscle spasm) Qty: 14 0RF doxycycline monohydrate 100 mg capsule 100 mg PO BID 10 Days Qty: 20 0RF <Susannah Yoder CNP - Last Filed: 09/19/22 14:31> Referrals: Steven Dejesus MD [Primary Care Provider] - 2 days <Susannah Yoder CNP - Last Filed: 09/19/22 14:31> Stand Alone Forms: Work/School Release <Susannah Yoder CNP - Last Filed: 09/19/22 14:31>
[2022-09-19 15:30] LABS: MANUAL DIFF FLAG NO
[2022-09-19 15:31] LABS: Basophils Percent Auto 0.2 % (0-2); Eosinophils Absolute Auto 0.2 X10*3/uL (0.0-0.4); Eosinophils Percent Auto 2.4 % (0-4); Hematocrit 35.3 % (37.0-47.0); Hemoglobin 11.5 g/dl (12.0-16.0); Imm Gran Abs Auto 0.03 X10*3/uL (0.00-0.03); Imm Gran Pct Auto 0.4 % (0.0-0.4); Lymphocytes Absolute Auto 1.7 X10*3/uL (1.2-4.9); Lymphocytes Percent Auto 20.5 % (20-40); Mean Corpuscular HGB Conc 32.6 g/dl (31.0-35.0); Mean Corpuscular Hemoglobin 28.8 pg (27.0-33.0); Mean Corpuscular Volume 88.5 fL (80.0-98.0); Mean Platelet Volume 9.2 fL (9.4-12.3); Monocytes Absolute Auto 0.5 X10*3/uL (0.1-1.2); Monocytes Percent Auto 6.7 % (2-11); Neutrophils Absolute Auto 5.6 x10*3/uL (2.0-8.3); Neutrophils Percent Auto 69.8 % (45-73); Platelet Count 361 X10*3/uL (160-400); Red Blood Count 3.99 X10*6/uL (4.20-5.50); Red Cell Distribution Width 12.8 % (11.0-16.0); White Blood Count 8.1 X10*3/uL (4.8-10.8)
[2022-09-19 15:45] LABS: COVID-19 Test Negative (Negative); IDNOW Serial# 6674DD1D
[2022-09-19 15:47] LABS: IDNOW Serial# 55D5AD1C; Influenza A Negative (Negative)
[2022-09-19 15:48] LABS: Influenza B2 Negative (Negative)
[2022-09-19 15:54] LABS: Alanine Aminotransferase 16 U/L (0-31); Albumin Level 4.2 g/dL (3.5-5.0); Alkaline Phosphatase 102 U/L (39-117); Anion Gap 9 (12-20); Aspartate Amino Transferase 17 U/L (5-31); Bilirubin Total 0.2 mg/dL (0.0-1.0); Blood Urea Nitrogen 20 mg/dL (9-16); Calcium 10.5 mg/dL (8.4-10.2); Carbon Dioxide 25 mmol/L (22-29); Chloride 110 mmol/L (96-108); Creatinine Clr Calc Pharmacy 60.9; Estimated Glomerular Filt Rate 60; Glucose Random 109 mg/dL (60-115); Potassium 4.2 mmol/L (3.3-5.1); Sodium 140 mmol/L (135-145); Total Protein 7.1 g/dL (6.5-8.0)
--- NOTE | 2022-09-19 16:14 | ED_ITS ---
HPI - Extremity Problem General Chief complaint: Extremity Problem Stated complaint: cellulitis l leg Time Seen by Provider: 09/19/22 16:02 Source: patient Mode of arrival: ambulatory Limitations: no limitations Related Data Previous Rx's Medication Instructions Recorded cyclobenzaprine 10 mg tablet 10 mg PO TID PRN muscle spasm #14 02/07/22 tabs hydrochlorothiazide 25 mg tablet 25 mg PO DAILY 90 days #90 tabs 04/22/22 valsartan 160 mg tablet 160 mg PO BID #180 tabs 06/16/22 cholecalciferol (vitamin D3) 50 50 mcg PO DAILY #90 caps 08/22/22 mcg (2,000 unit) capsule doxycycline monohydrate 100 mg 100 mg PO BID 10 days #20 caps 09/17/22 capsule levothyroxine 125 mcg tablet 125 mcg PO QAM #90 tabs 09/17/22 cephalexin 500 mg tablet 500 mg PO Q6H 10 days #40 tabs 09/19/22 Allergies Allergy/AdvReac Type Severity Reaction Status Date / Time vancomycin [VANCOMYCIN] Allergy Intermediate SWELLING Verified 09/17/22 11:16 levofloxacin [From Levaquin] Allergy Unknown RASH Verified 09/17/22 11:16 [facility] Past Medical History Medical History Acquired hypothyroidism Benign essential hypertension History of melanoma History of opioid abuse Hypercalcemia Obesity (BMI 30-39.9) Pure hypercholesterolemia Vitamin D deficiency Surgical History History of surgery Family History Family History Father No problems noted. Mother Cancer Other Mental health problem Substance abuse Social History Social History Housing: Apartment Alcohol intake: former Patient Tobacco Use Status: Former Tobacco user Smoked in Last 30 Days: No e-Cigarette/Vaping Use: Never Used Second Hand Smoke Exposure: Yes Use of substances other than those prescribed or required for medical reasons: No Advance Directives: No Advance Directives Information Provided: No Patient : No service: No Current occupational status: disabled Cognitive needs: No Hearing needs: No Vision needs: Yes Physical Exam Vital Signs: Vital Signs: Last Vital Signs Temp 96.0 F L 09/19/22 14:25 Pulse 62 09/19/22 14:25 Resp 20 09/19/22 14:25 BP 131/81 09/19/22 14:25 Pulse Ox 98 09/19/22 14:25 O2 Del Method 09/19/22 14:25 BMI result Body Mass Index 40.1 Course Reevaluation(s) Reevaluation #1: Appears to be around patient's baseline Medical Decision Making Lab Data Result Diagrams: 09/19/22 15:26 09/19/22 15:26 Labs: Lab Results 09/19/22 09/19/22 09/19/22 Range/Units 15:23 15:23 15:26 WBC 8.1 (4.8-10.8) X10*3/uL RBC 3.99 L (4.20-5.50) X10*6/uL Hgb 11.5 L (12.0-16.0) g/dl Hct 35.3 L (37.0-47.0) % MCV 88.5 (80.0-98.0) fL MCH 28.8 (27.0-33.0) pg MCHC 32.6 (31.0-35.0) g/dl RDW 12.8 (11.0-16.0) % Plt Count 361 (160-400) X10*3/uL MPV 9.2 L (9.4-12.3) fL Immature Gran % (Auto) 0.4 (0.0-0.4) % Neut % (Auto) 69.8 (45-73) % Lymph % (Auto) 20.5 (20-40) % [place] % (Auto) 6.7 (2-11) % Eos % (Auto) 2.4 (0-4) % Baso % (Auto) 0.2 (0-2) % Lymph # (Auto) 1.7 (1.2-4.9) X10*3/uL [place] # (Auto) 0.5 (0.1-1.2) X10*3/uL Eos # (Auto) 0.2 (0.0-0.4) X10*3/uL Baso # (Auto) 0.0 (0.0-0.2) X10*3/uL Abs Immat Gran (auto) 0.03 (0.00-0.03) X10*3/uL Absolute Neuts (auto) 5.6 (2.0-8.3) x10*3/uL Absolute Nucleated RBC 0.000 (0.0-0.012) X10*3/uL Nucleated RBC % (auto) 0.0 (0.0-0.2) /100WBC D-Dimer High Sensitivty NG/ML Sodium (135-145) mmol/L Potassium (3.3-5.1) mmol/L Chloride (96-108) mmol/L Carbon Dioxide (22-29) mmol/L Anion Gap (12-20) BUN (9-16) mg/dL Creatinine (0.5-1.4) mg/dL Estim Creat Clear Calc Estimated GFR Random Glucose (60-115) mg/dL Lactic Acid (0.5-2.0) mmol/L Calcium (8.4-10.2) mg/dL Total Bilirubin (0.0-1.0) mg/dL AST (5-31) U/L ALT (0-31) U/L Alkaline Phosphatase (39-117) U/L Total Protein (6.5-8.0) g/dL Albumin (3.5-5.0) g/dL COVID-19 (FEDE) Negative (Negative) COVID-19 Clin Com See Note Influenza Type A (JUN) Negative (Negative) Influenza Type B (JUN) Negative (Negative) Influenza A & B Note See Note 09/19/22 09/19/22 09/19/22 Range/Units 15:26 16:24 16:24 WBC (4.8-10.8) X10*3/uL RBC (4.20-5.50) X10*6/uL Hgb (12.0-16.0) g/dl Hct (37.0-47.0) % MCV (80.0-98.0) fL MCH (27.0-33.0) pg MCHC (31.0-35.0) g/dl RDW (11.0-16.0) % Plt Count (160-400) X10*3/uL MPV (9.4-12.3) fL Immature Gran % (Auto) (0.0-0.4) % Neut % (Auto) (45-73) % Lymph % (Auto) (20-40) % [place] % (Auto) (2-11) % Eos % (Auto) (0-4) % Baso % (Auto) (0-2) % Lymph # (Auto) (1.2-4.9) X10*3/uL [place] # (Auto) (0.1-1.2) X10*3/uL Eos # (Auto) (0.0-0.4) X10*3/uL Baso # (Auto) (0.0-0.2) X10*3/uL Abs Immat Gran (auto) (0.00-0.03) X10*3/uL Absolute Neuts (auto) (2.0-8.3) x10*3/uL Absolute Nucleated RBC (0.0-0.012) X10*3/uL Nucleated RBC % (auto) (0.0-0.2) /100WBC D-Dimer High Sensitivty 164 NG/ML Sodium 140 (135-145) mmol/L Potassium 4.2 (3.3-5.1) mmol/L Chloride 110 H (96-108) mmol/L Carbon Dioxide 25 (22-29) mmol/L Anion Gap 9 L (12-20) BUN 20 H (9-16) mg/dL Creatinine 0.95 (0.5-1.4) mg/dL Estim Creat Clear Calc 60.9 Estimated GFR 60 Random Glucose 109 (60-115) mg/dL Lactic Acid 0.8 (0.5-2.0) mmol/L Calcium 10.5 H (8.4-10.2) mg/dL Total Bilirubin 0.2 (0.0-1.0) mg/dL AST 17 (5-31) U/L ALT 16 (0-31) U/L Alkaline Phosphatase 102 (39-117) U/L Total Protein 7.1 (6.5-8.0) g/dL Albumin 4.2 (3.5-5.0) g/dL COVID-19 (FEDE) (Negative) COVID-19 Clin Com Influenza Type A (JUN) (Negative) Influenza Type B (JUN) (Negative) Influenza A & B Note Discharge Plan Discharge Clinical Impression: Cellulitis Patient Disposition: Home, Self-Care Instructions: Cellulitis (ED) Additional Instructions: Take your medications as prescribed. If you were prescribed antibiotics today, it is important that you take your medication to their entirety, do not skip any doses, do not finish them early. Follow-up with your primary care provider this week. Return to the emergency department with new or worsening symptoms. Such as fevers, chills, chest pain, shortness of breath, nausea, vomiting, dizziness, headache, vision changes, lethargy Please return if redness or swelling worsens. In case of emergency call 911 Prescriptions: New cephalexin 500 mg tablet 500 mg PO Q6H 10 Days Qty: 40 0RF No Action hydrochlorothiazide 25 mg tablet 25 mg PO DAILY 90 Days Qty: 90 1RF valsartan 160 mg tablet 160 mg PO BID Qty: 180 1RF cholecalciferol (vitamin D3) 50 mcg (2,000 unit) capsule 50 mcg PO DAILY Qty: 90 3RF levothyroxine 125 mcg tablet 125 mcg PO QAM Qty: 90 2RF cyclobenzaprine 10 mg tablet 10 mg PO TID PRN (Reason: muscle spasm) Qty: 14 0RF doxycycline monohydrate 100 mg capsule 100 mg PO BID 10 Days Qty: 20 0RF Referrals: Steven Dejesus MD [Primary Care Provider] - 2 days Stand Alone Forms: Work/School Release
[2022-09-19 16:42] LABS: Lactic Acid 0.8 mmol/L (0.5-2.0)
[2022-09-19 16:46] LABS: D Dimer High Sensitivity 164 NG/ML
== END 2022-09-19 17:11 | disposition home or self-care (01) ==
PROVIDERS: Nurse Practitioner Family; Physician Assistant; Emergency Provider Emergency Medicine; PCP Internal Medicine
DX: L03.116 Cellulitis of left lower limb (principal); Z20.822 Contact with and (suspected) exposure to COVID-19; Z79.899 Other long term (current) drug therapy; Z87.891 Personal history of nicotine dependence
CPT/HCPCS: 36415; 73590; 80053; 83605; 85025; 85379; 87040; 87502; 87635; 99283

== ENCOUNTER 2022-11-27 08:03 | Outpatient (REF) | payer OTHER, SELFPAY ==
[2022-11-27 11:22] LABS: Vitamin D 25-OH Total 34.4 ng/mL (>30)
[2022-11-27 11:32] LABS: Estimated Average Glucose 111 mg/dL; Hemoglobin A1c % 5.5 %
[2022-11-27 12:11] LABS: Folate 8.8 ng/mL (> or = 4.0); Vitamin B12 295 pg/mL (200-900)
[2022-12-01 14:09] LABS: Vitamin B1 10 nmol/L (8-30)
[2022-12-01 16:29] LABS: Zinc 69 mcg/dL (60-130)
[2022-12-03 13:38] LABS: Vitamin A 52 mcg/dL (38-98)
== END 2022-11-27 08:04 | disposition home or self-care (01) ==
LOC: HO.LAB 08:03
PROVIDERS: PCP Internal Medicine; Visit Provider Physician Assistant
DX: E66.01 Morbid (severe) obesity due to excess calories (principal); E55.9 Vitamin D deficiency, unspecified; E83.52 Hypercalcemia; E78.41 Elevated Lipoprotein(a); E78.00 Pure hypercholesterolemia, unspecified; E03.9 Hypothyroidism, unspecified; K21.9 Gastro-esophageal reflux disease without esophagitis; D64.9 Anemia, unspecified; I10 Essential (primary) hypertension; L80 Vitiligo; Z98.84 Bariatric surgery status; Z90.3 Acquired absence of stomach [part of]; Z79.899 Other long term (current) drug therapy; Z71.3 Dietary counseling and surveillance; Z68.39 Body mass index [BMI] 39.0-39.9, adult
CPT/HCPCS: 36415; 82306; 82607; 82746; 83036; 84425; 84590; 84630; 99202

== ENCOUNTER 2023-01-26 08:49 | Outpatient (REF) | payer OTHER, SELFPAY ==
--- NOTE | ~2023-01-26 | XR_ITS ---
EXAMINATION: XR KNEE AP STANDING CLINICAL INFORMATION: Right knee pain COMPARISON: None available. TECHNIQUE: AP bilateral standing view of the knees was obtained. FINDINGS: There is neither fracture or dislocation of either knee on this AP view. There is minimal narrowing of both medial joint space heights. Tiny osteophytes are present within both knees. XR/XR knee standing BI IMPRESSION: Mild degenerative changes of both knees.
[2023-01-26 09:13] LABS: MANUAL DIFF FLAG NO
[2023-01-26 09:51] LABS: Basophils Percent Auto 0.3 % (0-2); Eosinophils Absolute Auto 0.1 X10*3/uL (0.0-0.4); Eosinophils Percent Auto 1.7 % (0-4); Hematocrit 36.1 % (37.0-47.0); Hemoglobin 11.7 g/dl (12.0-16.0); Imm Gran Abs Auto 0.02 X10*3/uL (0.00-0.03); Imm Gran Pct Auto 0.3 % (0.0-0.4); Lymphocytes Absolute Auto 1.5 X10*3/uL (1.2-4.9); Lymphocytes Percent Auto 22.1 % (20-40); Mean Corpuscular HGB Conc 32.4 g/dl (31.0-35.0); Mean Corpuscular Hemoglobin 29.3 pg (27.0-33.0); Mean Corpuscular Volume 90.3 fL (80.0-98.0); Mean Platelet Volume 9.8 fL (9.4-12.3); Monocytes Absolute Auto 0.7 X10*3/uL (0.1-1.2); Monocytes Percent Auto 9.8 % (2-11); Neutrophils Absolute Auto 4.4 x10*3/uL (2.0-8.3); Neutrophils Percent Auto 65.8 % (45-73); Platelet Count 337 X10*3/uL (160-400); Red Cell Distribution Width 13.6 % (11.0-16.0); White Blood Count 6.7 X10*3/uL (4.8-10.8)
[2023-01-26 10:41] LABS: Appearance Urine Clear; Color Urine Yellow; Glucose Urine UA Negative (Negative); Leukocyte Esterase Urine Trace (Negative); Nitrite Urine Negative (Negative); PH 5.5 (5.0-9.0); Specific Gravity - Urine 1.015 (1.005-1.025); UMIC TRIGGER UACC YES; Urine Blood Negative (Negative); Urine Ketones Negative (Negative); Urine Protein Negative (Neg-Trace)
[2023-01-26 10:46] LABS: Bacteria Urine None Seen (None Seen); Hyaline Casts Urine 0-2 /LPF (0-2); RBC Urine 0-2 /HPF (0-2); Squamous Epithelial Cell Urine 0-2 /HPF (0-2); WBC Urine 0-5 /HPF (0-5)
[2023-01-26 10:58] LABS: Estimated Average Glucose 117 mg/dL; Hemoglobin A1c % 5.7 %
[2023-01-26 11:19] LABS: Alanine Aminotransferase 14 U/L (0-31); Albumin Level 4.3 g/dL (3.5-5.0); Alkaline Phosphatase 91 U/L (39-117); Anion Gap 12 (12-20); Aspartate Amino Transferase 16 U/L (5-31); Bilirubin Total 0.3 mg/dL (0.0-1.0); Blood Urea Nitrogen 29 mg/dL (9-16); Calcium 10.4 mg/dL (8.4-10.2); Carbon Dioxide 22 mmol/L (22-29); Chloride 107 mmol/L (96-108); Cholesterol 190 mg/dL; Estimated Glomerular Filt Rate 54; Glucose Fasting 99 mg/dL (60-99); HDL Cholesterol 48 mg/dL; LDL Cholesterol Calculated 126 mg/dl; Potassium 4.4 mmol/L (3.3-5.1); Sodium 137 mmol/L (135-145); Total Protein 7.1 g/dL (6.5-8.0); Triglycerides 82 mg/dL
[2023-01-26 11:35] LABS: Folate 5.4 ng/mL (> or = 4.0); Free T4 (Free Thyroxine) 1.03 ng/dL (0.71-1.85); Thyroid Stimulating Hormone 5.51 uIU/mL (0.32-4.0); Vitamin B12 236 pg/mL (200-900); Vitamin D 25-OH Total 45.3 ng/mL (>30)
[2023-01-28 12:23] LABS: Calcium, Ionized 5.6 mg/dL (4.7-5.5)
[2023-01-28 16:19] LABS: PTHI 114 pg/mL (16-77)
== END 2023-01-26 08:50 | disposition home or self-care (01) ==
LOC: HO.LAB 08:49
PROVIDERS: PCP Internal Medicine; Visit Provider Internal Medicine
DX: M25.562 Pain in left knee (principal); M25.561 Pain in right knee; R73.9 Hyperglycemia, unspecified; E53.8 Deficiency of other specified B group vitamins; E55.9 Vitamin D deficiency, unspecified; R00.2 Palpitations; E03.9 Hypothyroidism, unspecified; E78.00 Pure hypercholesterolemia, unspecified; I10 Essential (primary) hypertension
CPT/HCPCS: 36415; 73565; 80053; 80061; 81001; 82306; 82330; 82607; 82746; 83036; 83735; 83970; 84439; 84443; 85025

== ENCOUNTER 2023-04-03 14:41 | Outpatient (AMB) | payer OTHER, SELFPAY ==
--- NOTE | 2023-04-03 14:59 | A.OFFVIS_ITS ---
Intake Vital Signs 04/03/23 15:03 Height 4 ft 11 in Weight 178 lb 5.663 oz BMI 36.0 BP 110/60 Blood Pressure Location Lt brachial Position Sitting Pulse 63 Pulse Source Pulse Oximeter Intake Visit Reasons: Hyperparathyroidism Intake Note: Patient intake for hyperparathyroidism Diabetes Territory Manager Required: No Accompanied by: Self / Same As Patient Allergies vancomycin [VANCOMYCIN] Allergy (Intermediate, Verified 04/03/23 15:12) SWELLING levofloxacin [From Levaquin] Allergy (Unknown, Verified 04/03/23 15:12) RASH Medication List - Last Reconciled 04/03/23 by Suman Villanueva, RN cholecalciferol (vitamin D3) 50 mcg PO DAILY hydrochlorothiazide 25 mg PO DAILY 90 days levothyroxine 125 mcg PO QAM omeprazole 10 mg PO DAILY valsartan 160 mg PO BID HPI HPI Comments History of Present Illness Details 62 YO F with PMHx [] who is seen in consultation at the request of PCP for Hypercalcemia. First noted to have high calcium recently discovered . Not Currently using Calcium supplement . Takes 2000 IU of Vitamin D daily. Currently using HCTZ. Kidney stones: No Osteoporosis: No History of [place] use: No Biotin use: No Family history of high calcium or kidney stones: Mom had kidney stones Renal imaging: [] DXA: Labs: [facility] Medical History (Updated 01/25/23 @ 20:08 by Steven Dejesus MD) Acquired hypothyroidism Benign essential hypertension History of melanoma History of opioid abuse Hypercalcemia Hyperparathyroidism Obesity (BMI 30-39.9) Pure hypercholesterolemia Vitamin D deficiency Surgical History History of delivery History of surgery Hx of tonsillectomy Family History Father No problems noted. Mother Cancer Other Mental health problem Substance abuse Social History Housing: Apartment Alcohol intake: former Patient Tobacco Use Status: Former Tobacco user e-Cigarette/Vaping Use: Never Used Second Hand Smoke Exposure: Yes service: No Current occupational status: disabled Cognitive needs: No Hearing needs: No Vision needs: Yes Physical Exam Vital Signs: Last Vital Signs Pulse 63 04/03/23 15:03 BP 110/60 04/03/23 15:03 BMI result Body Mass Index 36.0 Neck exam shows nl thyroid about 15 gms. Lungs CTA. Heart S1 S2 Reg R/R -MRG. Abdomina exam benign . Muscle strength 5/5 proximally. No hirsuitism present. Skin exam without lesion Assessment & Plan Assessment & Plan (1) Hyperparathyroidism: Code(s): E21.3 - Hyperparathyroidism, unspecified Plan: This is a 62-year-old female with history of PTH-dependent hypercalcemia. Differential diagnosis includes the presence of primary hyperparathyroidism versus hydrochlorothiazide induced hypercalcemia. Plan is to talk to the primary care provider about stopping hydrochlorothiazide for 6 week's time and rechecking calcium and PTH. If there is persistent hypercalcemia, a further workup for primary hyperparathyroidism will take place Orders: Orders Albumin Level 6 Weeks E21.3 - Hyperparathyroidism, unspecified PTHI 6 Weeks E21.3 - Hyperparathyroidism, unspecified Coding Level of Care Code New Pt Level 4 (28613) Diagnoses Hyperparathyroidism E21.3
[2023-04-03 15:03] VITALS: BP 110/60; PULSE 63; BMI 36.0
== END 2023-04-03 16:16 | disposition home or self-care (01) ==
PROVIDERS: PCP Internal Medicine; Visit Provider Internal Medicine Endocrinology, Diabetes & Metabolism
DX: E21.3 Hyperparathyroidism, unspecified (principal)
CPT/HCPCS: 99204

== ENCOUNTER → 2023-04-03 14:41 | Outpatient (BNVA) | payer OTHER, SELFPAY | PROVIDERS: Visit Provider Internal Medicine Endocrinology, Diabetes & Metabolism | DX: E21.3 Hyperparathyroidism, unspecified (principal) | CPT/HCPCS: 99202 ==

== ENCOUNTER 2023-06-02 09:28 | Outpatient (AMB) | payer OTHER, SELFPAY ==
[2023-06-02 09:47] VITALS: BP 142/90; PULSE 68; O2SAT 99; BMI 34.9
--- NOTE | 2023-06-02 09:47 | A.OFFPC_ITS ---
Vital Signs 06/02/23 09:47 06/02/23 10:37 Height 4 ft 11 in Weight 173 lb BMI 34.9 BP 142/90 H 134/88 Blood Pressure Location Lt brachial Lt brachial Position Sitting Sitting Pulse 68 Pulse Source Pulse Oximeter Temp Source Skin Pulse Oximetry (%) 99 Oxygen Delivery Method Room Air Intake Visit Reasons: 4 month f/u Allergies vancomycin [VANCOMYCIN] Allergy (Intermediate, Verified 06/02/23 10:26) SWELLING levofloxacin [From Levaquin] Allergy (Unknown, Verified 06/02/23 10:26) RASH Medication List - Last Reconciled 06/02/23 by Steven Dejesus MD cholecalciferol (vitamin D3) 50 mcg PO DAILY hydrochlorothiazide 25 mg PO DAILY levothyroxine 125 mcg PO QAM omeprazole 10 mg PO DAILY valsartan 160 mg PO BID Tobacco use date assessed: 06/02/23 Dental Screening Dental Screen Date: 06/02/23 Did you have a dental visit in the last 12 months?: Yes Did you have a dental problem in the last 6 months where you did not have access to dental care?: No Was dental information given to patient?: Patient has dentist HPI 4 month f/u HPI Details Patient comes in today for her follow up visit States that she feels okay She denies any headaches or dizziness - notes that her headaches seem to have gotten a lot better since she stopped taking her HCTZ a few weeks ago Denies any chest pains, no increased SOB No nausea/vomiting, no abdominal pain No change in bowel habits noted Would like to know how she did on her labs done a few months ago States that she has NOT taken her HCTZ ever since she was instructed to hold it back on 04/16/23 - plan, per Dr. Reese, was to hold her HCTZ for 6 weeks and then recheck her serum calcium level and PTH level to confirm whether her hypercalcemia is due to her Rx (HCTZ) or not PFSH Medical History Hyperparathyroidism Hypercalcemia History of opioid abuse History of melanoma Vitamin D deficiency Pure hypercholesterolemia Obesity (BMI 30-39.9) Benign essential hypertension Acquired hypothyroidism Surgical History Hx of tonsillectomy History of delivery History of surgery Family History Father No problems noted. Mother Cancer Other Mental health problem Substance abuse Social History Housing: Apartment Alcohol intake: former Patient Tobacco Use Status: Former Tobacco user e-Cigarette/Vaping Use: Never Used Second Hand Smoke Exposure: Yes service: No Current occupational status: disabled Cognitive needs: No Hearing needs: No Vision needs: Yes Questionnaire Thrive Questionnaire Date Thrive assessed: 01/22/23 AUDIT C Alcohol Use Questionnaire (AUDIT-C) 1. How often do you have a drink containing alcohol?: Never 3. How often do you have six or more drinks on one occasion?: Never Total Score: 0 Score Reviewed/Action Taken: Yes ROGER-7 AMB Questionnaire ROGER-7 Date ROGER - 7 assessed: 01/22/23 Source: Developed by Drs. Cristi Fuentes, Frances Ayon, Chaparro Harrison and colleagues, with an educational jimmy from [email or web address]. Review of Systems Const Denies chills, Reports fatigue, Denies fever(s) and Denies headache(s) (reports that her headaches have gotten a lot better since she stopped HCTZ) ENT Denies dysphagia, Denies dizziness, Denies otalgia, Denies headache(s) (reports that her headaches have gotten a lot better since she stopped HCTZ), Denies odynophagia and Denies sore throat Card Denies chest pain, Denies palpitations and Denies dyspnea Resp Denies cough, Denies dyspnea and Denies wheezing GI Denies abdominal pain, Denies constipation, Denies dysphagia, Denies heartburn, Denies diarrhea, Denies nausea, Denies odynophagia and Denies vomiting Denies difficulty voiding, Denies nocturia and Denies dysuria Musc Reports arthralgias (over both knees) Skin/Breast Denies rash Neuro Denies dizziness and Denies headache(s) (reports that her headaches have gotten a lot better since she stopped HCTZ) Psych Reports anxiety Endo Reports fatigue and Denies palpitations Medardo/Lymph Details: (+) mild swelling in her feet at times, especially since she stopped taking her HCTZ Aller/Immun Denies wheezing Physical exam (Primary Care) Vital Signs: Last Vital Signs Pulse 68 06/02/23 09:47 BP 142/90 H 06/02/23 09:47 Pulse Ox 99 06/02/23 09:47 Oxygen Delivery Method Room Air 06/02/23 09:47 BMI result Body Mass Index 34.9 Tobacco/Smoking Status: Tobacco use Status Tobacco use date assessed 06/02/23 06/02/23 09:50 Patient Tobacco Use Status Former Tobacco user 06/02/23 09:50 e-Cigarette/Vaping Use Never Used 06/02/23 09:50 Thrive Assessment: Date of Thrive Assessment Date Thrive assessed 01/22/23 06/02/23 09:50 Const General: no acute distress and alert HENMT Ears: TM's normal bilaterally and EAC's normal Throat: Yes posterior oropharynx normal and Yes tonsils normal (no TP congestion noted) Neck Neck: Yes no lymphadenopathy and Yes supple Resp Auscultation: clear to auscultation bilaterally, no rales and no wheezes Cardio Rate: regular rate Rhythm: regular rhythm Heart sounds: no murmurs GI Palpation (GI): Soft to palpation and nontender Auscultation: normal bowel sounds Extrem General: Yes no clubbing, cyanosis or edema Right lower extremity: knee Details: tenderness Location: of the pre-patellar area and of the infrapatellar area; no swelling Left lower extremity: knee Details: tenderness Location: of the pre-patellar area and of the infrapatellar area; no swelling Assessment and Plan Assessment & Plan (1) Hypercalcemia: Code(s): E83.52 - Hypercalcemia Plan: Patient was instructed to HOLD her HCTZ about 6 weeks ago, per recommendation from endocrinology, to help evaluate whether her hypercalcemia is PTH-induced or medication-induced Will have her recheck her labs now [facility] for further evaluation (2) Elevated parathyroid hormone: Code(s): E34.9 - Endocrine disorder, unspecified Plan: Possible hyperparathyroidism (primary) Her vitamin D level was normal on her labs done a few months ago; serum calcium level was slightly elevated Follow up with endocrinology as scheduled for further evaluation and management (3) Benign essential hypertension: Code(s): I10 - Essential (primary) hypertension Plan: Reinforced low sodum diet - goal is systolic BP of 120 to 130 mm or less States that her BP has been slightly high lately since she held her other Rx (HCTZ) a few weeks ago Continue Valsartan 160 mg BID for now (4) Acquired hypothyroidism: Code(s): E03.9 - Hypothyroidism, unspecified Plan: Continue Levothyroxine 125 mcg QD TFTs checked a few months ago were within normal range (5) Pure hypercholesterolemia: Code(s): E78.00 - Pure hypercholesterolemia, unspecified Plan: Results of her labs done a few months ago reviewed and discussed with patient Reinforced low cholesterol diet (6) Vitamin D deficiency: Code(s): E55.9 - Vitamin D deficiency, unspecified Plan: Continue Vitamin D3 2000 units QD (7) Knee pain, bilateral: Code(s): M25.561 - Pain in right knee; M25.562 - Pain in left knee Qualifiers: Chronicity: unspecified Qualified Code(s): M25.561 - Pain in right knee; M25.562 - Pain in left knee Plan: X-rays of both knees done back in January 2023 revealed (+) mild degenerative changes in both knees Will consider referring her to orthopedics if her knee symptoms progress (8) Primary osteoarthritis of hands, bilateral: Code(s): M19.041 - Primary osteoarthritis, right hand; M19.042 - Primary osteoarthritis, left hand Plan: X-rays of both hands done in February 2018 showed (+) mild arthritis changes at the DIP joint of the 5th fingers of both hands; no other abnormalities noted She is encouraged to continue with hand and finger exercises regularly to help manage her symptoms (9) History of melanoma: Code(s): Z85.820 - Personal history of malignant melanoma of skin Plan: Follow up with [place] [facility] as scheduled for continuing surveillance (10) History of opioid abuse: Code(s): F11.11 - Opioid abuse, in remission Plan: Used to take Suboxone but was able to come off this last year and states that she has been clean for years now with no cravings or relapse (11) Anxiety: Code(s): F41.9 - Anxiety disorder, unspecified Plan: Used to take Lorazepam but states that she has been doing well OFF of it for several months with no flare ups of her anxiety (12) Obesity (BMI 30-39.9): Code(s): E66.9 - Obesity, unspecified Plan: Reinforced diet/exercise as tolerated/lose weight - was able to lose a few more pounds since her last visit Plan Follow up in 4 months Orders: Orders PTHI Today E83.52 - Hypercalcemia Liver Panel Today E83.52 - Hypercalcemia Comprehensive Met. Panel Today E83.52 - Hypercalcemia Coding Level of Care Code Est Pt Level 4 (25182) Diagnoses Hypercalcemia E83.52 Elevated parathyroid hormone E34.9 Benign essential hypertension I10 Acquired hypothyroidism E03.9 Pure hypercholesterolemia E78.00 Vitamin D deficiency E55.9 Pain in both knees, unspecified chronicity M25.561; M25.562 Chronicity: unspecified Primary osteoarthritis of hands, bilateral M19.041; M19.042 History of melanoma Z85.820 History of opioid abuse F11.11 Anxiety F41.9 Obesity (BMI 30-39.9) E66.9
[2023-06-02 10:37] VITALS: BP 134/88
== END 2023-06-02 10:39 | disposition home or self-care (01) ==
PROVIDERS: Visit Provider Internal Medicine
DX: E83.52 Hypercalcemia (principal); I10 Essential (primary) hypertension; Z85.820 Personal history of malignant melanoma of skin; F41.9 Anxiety disorder, unspecified; F11.11 Opioid abuse, in remission; E78.00 Pure hypercholesterolemia, unspecified; M25.561 Pain in right knee; M25.562 Pain in left knee
CPT/HCPCS: 99214

== ENCOUNTER 2023-06-02 10:51 | Outpatient (REF) | payer OTHER, SELFPAY ==
[2023-06-02 12:11] LABS: Alanine Aminotransferase 19 U/L (0-31); Albumin Level 4.5 g/dL (3.5-5.0); Alkaline Phosphatase 83 U/L (39-117); Anion Gap 10 (12-20); Aspartate Amino Transferase 20 U/L (5-31); Bilirubin Direct 0.1 mg/dL (0.0-0.5); Bilirubin Total 0.3 mg/dL (0.0-1.0); Blood Urea Nitrogen 17 mg/dL (9-16); Calcium 10.9 mg/dL (8.4-10.2); Carbon Dioxide 20 mmol/L (22-29); Chloride 113 mmol/L (96-108); Estimated Glomerular Filt Rate > 60; Glucose Random 101 mg/dL (60-115); Potassium 4.2 mmol/L (3.3-5.1); Sodium 139 mmol/L (135-145); Total Protein 7.5 g/dL (6.5-8.0)
[2023-06-03 11:53] LABS: Calcium (PTHI) 10.7 mg/dL (8.6-10.4); PTHI 106 pg/mL (16-77)
== END 2023-06-02 10:52 | disposition home or self-care (01) ==
LOC: HO.LAB 10:51
PROVIDERS: Absent Provider Internal Medicine; PCP Internal Medicine; Visit Provider Internal Medicine Endocrinology, Diabetes & Metabolism
DX: E83.52 Hypercalcemia (principal)
CPT/HCPCS: 36415; 80053; 82248; 83970

== ENCOUNTER 2023-06-04 09:08 | Outpatient (REF) | payer OTHER, SELFPAY ==
[2023-06-04 11:15] LABS: Albumin Level 4.4 g/dL (3.5-5.0); Estimated Glomerular Filt Rate > 60
[2023-06-08 13:59] LABS: Calcium (PTHI) 10.7 mg/dL (8.6-10.4); PTHI 90 pg/mL (16-77)
== END 2023-06-04 09:09 | disposition home or self-care (01) ==
LOC: HO.LAB 09:08
PROVIDERS: PCP Internal Medicine; Visit Provider Internal Medicine Endocrinology, Diabetes & Metabolism
DX: E21.3 Hyperparathyroidism, unspecified (principal)
CPT/HCPCS: 36415; 82040; 82310; 82565; 83970

== ENCOUNTER 2023-06-06 07:56 | Outpatient (REF) | payer OTHER, SELFPAY ==
[2023-06-06 09:25] LABS: Creatinine, mg/dL 27.22
[2023-06-06 09:55] LABS: Creatinine, 24Hr Urine 0.9 G/Day (1.0-2.0); Total Volume 24 Hour Urine 3140 mL
[2023-06-08 20:23] LABS: Calcium, 24 Hr Urine 210 mg/24 h; Calcium/Creatinine Ratio 239 mg/g creat (30-275); Creatinine 24Hr Urine 0.88 g/24 h (0.50-2.15)
== END 2023-06-06 07:57 | disposition home or self-care (01) ==
LOC: HO.LNP 07:56
PROVIDERS: Visit Provider Internal Medicine Endocrinology, Diabetes & Metabolism
DX: E21.3 Hyperparathyroidism, unspecified (principal)
CPT/HCPCS: 82340; 82570

== ENCOUNTER 2023-06-18 10:08 | Outpatient (REF) | payer OTHER, SELFPAY ==
--- NOTE | ~2023-06-18 | US_ITS ---
EXAMINATION: US RETROPERITONEAL LIMITED (RENAL ONLY) CLINICAL INFORMATION: Hyperparathyroidism, unspecified. Rule out nephrolithiasis. COMPARISON: CT abdomen and pelvis 04/02/2010. TECHNIQUE: Real-time imaging of the kidneys. FINDINGS: RIGHT KIDNEY: 9.6 x 4.5 x 3.8 cm (SAG x AP x TRV). The kidney is normal in size, contour, and echogenicity. Renal cortical thickness is normal. No calculi or focal parenchymal lesions. No hydronephrosis. LEFT KIDNEY: 9.3 x 5.1 x 4.3 cm (SAG x AP x TRV). The kidney is normal in size, contour, and echogenicity. Renal cortical thickness is normal. No calculi or focal parenchymal lesions. No hydronephrosis. US/US renal BI IMPRESSION: Normal renal ultrasound.
--- NOTE | ~2023-06-18 | MM_ITS ---
EXAMINATION: BONE DENSITOMETRY CLINICAL INDICATION: Hyperparathyroidism, unspecified. COMPARISON: This is the patient's baseline examination. TECHNIQUE: Using a [employer] DXA System (software version: 13.1) manufactured by [employer], dual-energy x-ray absorptiometry was performed of the lumbar spine, left hip, and left forearm radius 33%. The images are of good technical quality. Summary results are attached. FINDINGS: LEFT FEMUR, NECK: BMD 0.969 g/cm2, Z-score 0.6, T-score -0.5, normal. LEFT FEMUR, TOTAL: BMD 1.100 g/cm2, Z-score 1.5, T-score 0.7, normal. AP SPINE L1-L2 (excluding L3 and L4): The data of L1-L4 has been changed to exclude the L3 and L4 vertebral bodies, because significant degenerative change at these levels may cause overestimation of lumbar spine density. BMD 0.974 g/cm2, Z-score -0.6, T-score -1.6, osteopenia. LEFT FOREARM RADIUS 33%: BMD 0.856 g/cm2, Z-score 0.9, T-score -0.2, normal. IDENTIFIED RISK FACTORS: Menopause, hyperparathyroidism, Thiazide. HISTORY OF FRACTURE: None listed. MEDICATIONS: Vitamin D. MM/XR DEXA appendicular skeleton IMPRESSION: 1. DIAGNOSIS: Osteopenia based on the lowest T-score value of -1.6 in the lumbar spine applying World Health Organization criteria. 2. 10-YEAR FRACTURE RISK PREDICTION, FRAX: Major osteoporotic fracture (clinical spine, forearm, hip or shoulder) 3.6%. Hip fracture 0.1%. 3. Treatment Recommendations: NOF guidelines recommend consideration for treatment in postmenopausal women and men age 50 and older presenting with the following: -A hip or vertebral (clinical or morphometric) fracture. -T-score less than or equal to -2.5 at the femoral neck or spine after appropriate evaluation to exclude secondary causes. -Low bone mass at the hip or spine and a 10-year fracture probability by FRAX of greater than or equal to 3% for hip fracture or greater than or equal to 20% for major osteoporotic fracture based on the [place] adapted WHO algorithm. 4. Other Recommendations: All treatment decisions require clinical judgment and consideration of individual patient factors, including patient preferences, comorbidities, previous drug use, risk factors not captured in the FRAX model (e.g. frailty, falls, vitamin D deficiency, increased bone turnover, interval significant decline in bone density) and possible under or overestimation of fracture risk by FRAX. Additional medical evaluation for secondary cause of low bone mineral density may be appropriate. FUTURE SCAN RECOMMENDATION: People with diagnosed cases of osteoporosis or at high risk for fracture should have regular bone mineral density tests. For patients eligible for Medicare, routine testing is allowed once every 2 years. The testing frequency can be increased to one year for patients who have rapidly progressing disease, those who are receiving or discontinuing medical therapy to restore bone mass, or have additional risk factors.
== END 2023-06-18 10:09 | disposition home or self-care (01) ==
LOC: HO.MAMMO 10:08
PROVIDERS: PCP Internal Medicine; Visit Provider Internal Medicine Endocrinology, Diabetes & Metabolism
DX: Z13.820 Encounter for screening for osteoporosis (principal); E21.3 Hyperparathyroidism, unspecified
CPT/HCPCS: 76775; 77081

== ENCOUNTER 2023-07-14 14:25 | Outpatient (AMB) | payer OTHER, SELFPAY ==
[2023-07-14 14:33] VITALS: BP 112/60; PULSE 54; BMI 35.5
--- NOTE | 2023-07-14 14:33 | A.OFFVIS_ITS ---
Intake Vital Signs 07/14/23 14:33 Height 4 ft 11 in Weight 175 lb 14.862 oz BMI 35.5 BP 112/60 Blood Pressure Location Lt brachial Position Sitting Pulse 54 Pulse Source Pulse Oximeter Intake Visit Reasons: f/u hyperparathyroidism Intake Note: Patient present for Hyperparathyroidism follow up visit. Director Global Market Research Required: No Accompanied by: Self / Same As Patient Allergies vancomycin [VANCOMYCIN] Allergy (Intermediate, Verified 07/14/23 14:42) SWELLING levofloxacin [From Levaquin] Allergy (Unknown, Verified 07/14/23 14:42) RASH Medication List - Last Reconciled 07/14/23 by Cristi Reese MD cholecalciferol (vitamin D3) 50 mcg PO DAILY levothyroxine 125 mcg PO QAM valsartan 160 mg PO BID HPI HPI Comments History of Present Illness Details 62 YO F with PMHx [] who is seen in cons ultation at the request of PCP for Hypercalcemia. First noted to have high calcium recently discovered . Not Currently using Calcium supplement . Takes 2000 IU of Vitamin D daily. Currently using HCTZ. Kidney stones: No Osteoporosis: No History of Amado use: No Biotin use: No Family history of high calcium or kidney stones: Mom had kidney stones Renal imaging: [] DXA: Labs: [facility] Medical History Hyperparathyroidism Hypercalcemia History of opioid abuse History of melanoma Vitamin D deficiency Pure hypercholesterolemia Obesity (BMI 30-39.9) Benign essential hypertension Acquired hypothyroidism Surgical History Hx of tonsillectomy History of delivery History of surgery Family History Father No problems noted. Mother Cancer Other Mental health problem Substance abuse Social History Housing: Apartment Alcohol intake: former Patient Tobacco Use Status: Former Tobacco user e-Cigarette/Vaping Use: Never Used Second Hand Smoke Exposure: Yes service: No Current occupational status: disabled Cognitive needs: No Hearing needs: No Vision needs: Yes Physical Exam Vital Signs: Last Vital Signs Pulse 54 07/14/23 14:33 BP 112/60 07/14/23 14:33 BMI result Body Mass Index 35.5 Assessment & Plan Assessment & Plan (1) Hyperparathyroidism: Code(s): E21.3 - Hyperparathyroidism, unspecified Plan: This is a 62-year-old female with history of PTH-dependent hypercalcemia. Most likely due to primary hyperparathyroidism. There is no evidence of kidney stones on renal ultrasound or osteoporosis on bone density thereby patient does not meet criteria for surgical exploration Plan is to refer patient back to primary care provider. Would follow calcium level perhaps every 6 months and if calcium rises greater than 11.2, refer back to endocrinology for discussion of parathyroid exploration. Would avoid the use of hydrochlorothiazide Coding Level of Care Code Est Pt Level 3 (99179) Diagnoses Hyperparathyroidism E21.3
== END 2023-07-14 14:50 | disposition home or self-care (01) ==
PROVIDERS: PCP Internal Medicine; Visit Provider Internal Medicine Endocrinology, Diabetes & Metabolism
DX: E21.3 Hyperparathyroidism, unspecified (principal)
CPT/HCPCS: 99213

== ENCOUNTER → 2023-07-14 14:25 | Outpatient (BNVA) | payer OTHER, SELFPAY | PROVIDERS: PCP Internal Medicine; Visit Provider Internal Medicine Endocrinology, Diabetes & Metabolism | DX: E21.3 Hyperparathyroidism, unspecified (principal) | CPT/HCPCS: 99212 ==

== ENCOUNTER 2023-10-02 08:58 | Outpatient (AMB) | payer OTHER, SELFPAY ==
[2023-10-02 09:00] VITALS: BP 130/86; PULSE 58; O2SAT 98; BMI 35.4
--- NOTE | 2023-10-02 09:00 | MHC.PC.OV ---
Vital Signs 10/02/23 09:00 Height 4 ft 11 in Weight 175 lb 2 oz BMI 35.4 BP 130/86 Blood Pressure Location Lt brachial Position Sitting Pulse 58 Pulse Source Pulse Oximeter Pulse Oximetry (%) 98 Oxygen Delivery Method Room Air Intake Visit Reasons: [facility] f/u District Manager Required: No Accompanied by: Self / Same As Patient Allergies vancomycin [VANCOMYCIN] Allergy (Intermediate, Verified 10/02/23 09:49) SWELLING levofloxacin [From Levaquin] Allergy (Unknown, Verified 10/02/23 09:49) RASH Medication List - Last Reconciled 10/02/23 by Steven Dejesus MD cholecalciferol (vitamin D3) 50 mcg PO DAILY levothyroxine 125 mcg PO QAM valsartan 160 mg PO BID Tobacco use date assessed: 10/02/23 Dental Screening Dental Screen Date: 10/02/23 Did you have a dental visit in the last 12 months?: Yes Did you have a dental problem in the last 6 months where you did not have access to dental care?: No Was dental information given to patient?: Patient has dentist HPI [facility] f/u HPI Details Patient comes in today for her follow up visit States that she has been experiencing recurrent headaches lately - notes that her headaches are mostly over the frontal areas of her head Was taken off her HCTZ a couple of months ago upon the recommendation of encdocrinology because of her elevated serum calcium level and she is not sure if her headaches started shortly after that States that she also came down with COVID a couple of months ago and was not feeling well for quite a while until recently - feels that she has now mostly recovered from her bout with COVID and whatever else she came down with back then She denies any dizziness Denies any chest pains, no SOB No nausea/vomiting, no abdominal pain No change in bowel habits noted Has had no follow up labs done recently [facility] Medical History Hyperparathyroidism Hypercalcemia History of opioid abuse History of melanoma Vitamin D deficiency Pure hypercholesterolemia Obesity (BMI 30-39.9) Benign essential hypertension Acquired hypothyroidism Surgical History Hx of tonsillectomy History of delivery History of surgery Family History Father No problems noted. Mother Cancer Other Mental health problem Substance abuse Social History Housing: Apartment Alcohol intake: former Patient Tobacco Use Status: Former Tobacco user e-Cigarette/Vaping Use: Never Used Second Hand Smoke Exposure: Yes service: No Current occupational status: disabled Cognitive needs: No Hearing needs: No Vision needs: Yes Questionnaire PHQ-9 Over the last 2 weeks, how often have you been bothered by any of the following problems? 1. Little interest or pleasure in doing things: not at all 2. Feeling down, depressed, or hopeless: not at all 3. Trouble falling or staying asleep, or sleeping too much: not at all 4. Feeling tired or having little energy: not at all 5. Poor appetite or overeating: not at all 6. Feeling bad about yourself - or that you are a failure or have let yourself or your family down: not at all 7. Trouble concentrating on things, such as reading the newspaper or watching television: not at all 8. Moving or speaking so slowly that other people could have noticed. Or the opposite - being so fidgety or restless that you have been moving around a lot more than usual: not at all 9. Thoughts that you would be better off or of hurting yourself in some way: not at all Total score: 0 Depression Screening Interpretation: Negative Depression Screening Done: Yes 35342 - PHQ-9 Billing: Yes Source: Developed by Drs. Cristi Fuentes, Frances Ayon, Chaparro Harrison and colleagues, with an educational jimmy from [employer]. Thrive Questionnaire Date Thrive assessed: 10/02/23 I am a: Patient What is your living situation today?: I have a steady place to live Within the past 12 months, did the food you bought not last and you didn't have the money to get more?: Never true Within the past 12 months, did you worry whether your food would run out before you got money to buy more?: Never true Do you have trouble paying for medicines?: No Do you have trouble getting transportation to medical appointments?: No Do you have trouble paying your heating and electricity bill?: No Do you have trouble taking care of your child, family member or friend?: No Do you have trouble with day-to-day activities such as bathing, preparing meals, shopping, managing finances, etc.?: No Are you currently unemployed and looking for a job?: No Are you interested in more education?: No Please select the resources that you would like help with: None Currently or been in a relationship where the following occur: no concerns reported AUDIT C Alcohol Use Questionnaire (AUDIT-C) 1. How often do you have a drink containing alcohol?: Never 3. How often do you have six or more drinks on one occasion?: Never Total Score: 0 Score Reviewed/Action Taken: Yes ROGER-7 AMB Questionnaire ROGER-7 Date ROGER - 7 assessed: 10/02/23 Feeling nervous, anxious, or on edge: 0 = Not at all Not being able to stop or control worryin = Not at all Worrying too much about different things: 0 = Not at all Trouble relaxin = Not at all Being so restless that it is hard to sit still: 0 = Not at all Becoming easily annoyed or irritable: 0 = Not at all Feeling afraid as if something awful might happen: 0 = Not at all Total ROGER-7 score (0-4 normal; 5-9 mild; 10-14 moderate; 15-21 severe): 0 Source: Developed by Drs. Cristi Fuentes, Frances Ayon, Chaparro Harrison and colleagues, with an educational jimmy from [employer]. Review of Systems Const Denies chills, Reports fatigue, Denies fever(s) and Reports headache(s) (on and off) Eyes Denies blurry vision ENT Denies dysphagia, Denies dizziness, Denies otalgia, Reports headache(s) (on and off), Denies odynophagia and Denies sore throat Card Denies chest pain, Denies palpitations and Denies dyspnea Resp Denies cough, Denies dyspnea and Denies wheezing GI Denies abdominal pain, Denies constipation, Denies dysphagia, Denies heartburn, Denies diarrhea, Denies nausea, Denies odynophagia and Denies vomiting Denies difficulty voiding, Denies nocturia and Denies dysuria Musc Reports arthralgias (over both knees) Skin/Breast Denies rash Neuro Denies dizziness and Reports headache(s) (on and off) Psych Reports anxiety Endo Reports fatigue and Denies palpitations Medardo/Lymph Details: (+) mild swelling in her feet at times, especially since she stopped taking her HCTZ Aller/Immun Denies wheezing Physical exam (Primary Care) Vital Signs: Last Vital Signs Pulse 58 10/02/23 09:00 BP 130/86 10/02/23 09:00 Pulse Ox 98 10/02/23 09:00 Oxygen Delivery Method Room Air 10/02/23 09:00 BMI result Body Mass Index 35.4 Tobacco/Smoking Status: Tobacco use Status Tobacco use date assessed 10/02/23 10/02/23 09:01 Patient Tobacco Use Status Former Tobacco user 10/02/23 09:01 e-Cigarette/Vaping Use Never Used 10/02/23 09:01 PHQ-9: PHQ-9 Score PHQ-9: Total score 0 10/02/23 09:13 Depression Screening Interpretation: Negative Thrive Assessment: Date of Thrive Assessment Date Thrive assessed 10/02/23 10/02/23 09:01 Currently or been in a relationship where the following occur: no concerns reported Const General: no acute distress and alert HENMT Ears: TM's normal bilaterally and EAC's normal Throat: Yes posterior oropharynx normal and Yes tonsils normal (no TP congestion noted) Neck Neck: Yes no lymphadenopathy and Yes supple Resp Auscultation: clear to auscultation bilaterally, no rales and no wheezes Cardio Rate: regular rate Rhythm: regular rhythm Heart sounds: no murmurs GI Palpation (GI): Soft to palpation and nontender Auscultation: normal bowel sounds Extrem General: Yes no clubbing, cyanosis or edema Right lower extremity: knee Details: tenderness Location: of the pre-patellar area and of the infrapatellar area; no swelling Left lower extremity: knee Details: tenderness Location: of the pre-patellar area and of the infrapatellar area; no swelling Assessment and Plan Assessment & Plan (1) Hypercalcemia: Code(s): E83.52 - Hypercalcemia Plan: Patient was instructed to HOLD her HCTZ about 3 to 4 months ago, per recommendation from endocrinology, to help evaluate whether her hypercalcemia is PTH-induced or medication-induced States that she has NOT taken her HCTZ since and initially thought she was feeling better but notes (+) recurrent headaches lately Will have her recheck her labs now RAMIN for further evaluation (2) Elevated parathyroid hormone: Code(s): E34.9 - Endocrine disorder, unspecified Plan: Possible hyperparathyroidism (primary) Her vitamin D level was normal on her labs done a few months ago; serum calcium level was slightly elevated Was seen by endocrinology and advised that she did not seem to meet the criteria for primary hyperparathyroidism and suspected that her elevated calcium level may be related to her HCTZ Rx, which has since been stopped Endocrinology recommended to monitor her labs and to refer her back only when her serum calcium level goes back up to over 11.2 Will have patient go and recheck her labs RAMIN for follow up (3) Benign essential hypertension: Code(s): I10 - Essential (primary) hypertension Plan: Reinforced low sodum diet - goal is systolic BP of 120 to 130 mm or less States that her BP has been slightly higher since she held her HCTZ a few months ago Continue Valsartan 160 mg BID Will start her additionally for now on Amlodipine 2.5 mg QD (4) Acquired hypothyroidism: Code(s): E03.9 - Hypothyroidism, unspecified Plan: Continue Levothyroxine 125 mcg QD TFTs checked a few months ago were within normal range; will recheck her TFTs RAMIN for follow up (5) Pure hypercholesterolemia: Code(s): E78.00 - Pure hypercholesterolemia, unspecified Plan: Reinforced low cholesterol diet Will also recheck her fasting lipids RAMIN for follow up (6) Vitamin D deficiency: Code(s): E55.9 - Vitamin D deficiency, unspecified Plan: Continue Vitamin D3 2000 units QD Will recheck her Vitamin D level for follow up (7) Knee pain, bilateral: Code(s): M25.561 - Pain in right knee; M25.562 - Pain in left knee Qualifiers: Chronicity: unspecified Qualified Code(s): M25.561 - Pain in right knee; M25.562 - Pain in left knee Plan: X-rays of both knees done back in January 2023 revealed (+) mild degenerative changes in both knees Will consider referring her to orthopedics if her knee symptoms progress (8) Primary osteoarthritis of hands, bilateral: Code(s): M19.041 - Primary osteoarthritis, right hand; M19.042 - Primary osteoarthritis, left hand Plan: X-rays of both hands done in February 2018 showed (+) mild arthritis changes at the DIP joint of the 5th fingers of both hands; no other abnormalities noted She is encouraged to continue with hand and finger exercises regularly to help manage her symptoms (9) History of melanoma: Code(s): Z85.820 - Personal history of malignant melanoma of skin Plan: Follow up with [facility] as scheduled for continuing surveillance (10) History of opioid abuse: Code(s): F11.11 - Opioid abuse, in remission Plan: Used to take Suboxone but was able to come off this a couple of years ago States that she has been clean for years now with no cravings or relapse (11) Anxiety: Code(s): F41.9 - Anxiety disorder, unspecified Plan: Used to take Lorazepam but states that she has been doing well OFF of it for several months with no flare ups of her anxiety (12) Obesity (BMI 30-39.9): Code(s): E66.9 - Obesity, unspecified Plan: Reinforced diet/exercise as tolerated/lose weight Plan Follow up in 4 months Orders: Orders Complete Blood Count Auto Diff Today E83.52 - Hypercalcemia, I10 - Essential (primary) hypertension Free T4 (Free Thyroxine) Today E03.9 - Hypothyroidism, unspecified, E83.52 - Hypercalcemia Comprehensive [place]. Panel Fast Today E78.00 - Pure hypercholesterolemia, unspecified, E83.52 - Hypercalcemia Lipid Panel Today E78.00 - Pure hypercholesterolemia, unspecified, E83.52 - Hypercalcemia Thyroid Stimulating Hormone Today E03.9 - Hypothyroidism, unspecified, E83.52 - Hypercalcemia Vitamin D 25-OH Total Today E55.9 - Vitamin D deficiency, unspecified, E83.52 - Hypercalcemia UA CC w/rflx Micro + Cult Today E83.52 - Hypercalcemia, R30.0 - Dysuria Parathyroid Hormone Intact Today E83.52 - Hypercalcemia Calcium, Ionized Today E83.52 - Hypercalcemia Hemoglobin A1c Today R73.9 - Hyperglycemia, unspecified Medications: New amlodipine can be taken together with her dose of Valsartan in the morning 2.5 mg PO DAILY 30 tabs 3RF 30 days amlodipine can be taken together with Valsartan once a day 2.5 mg PO DAILY 30 days 30 tabs 3RF Coding Level of Care Code Est Pt Level 4 (64042) Diagnoses Hypercalcemia E83.52 Elevated parathyroid hormone E34.9 Benign essential hypertension I10 Acquired hypothyroidism E03.9 Pure hypercholesterolemia E78.00 Vitamin D deficiency E55.9 Pain in both knees, unspecified chronicity M25.561; M25.562 Chronicity: unspecified Primary osteoarthritis of hands, bilateral M19.041; M19.042 History of melanoma Z85.820 History of opioid abuse F11.11 Anxiety F41.9 Obesity (BMI 30-39.9) E66.9
== END 2023-10-02 09:57 | disposition home or self-care (01) ==
PROVIDERS: PCP Internal Medicine; Visit Provider Internal Medicine
DX: E83.52 Hypercalcemia (principal); E34.9 Endocrine disorder, unspecified; F11.11 Opioid abuse, in remission; I10 Essential (primary) hypertension; E03.9 Hypothyroidism, unspecified; E78.00 Pure hypercholesterolemia, unspecified; E55.9 Vitamin D deficiency, unspecified; M25.561 Pain in right knee; M25.562 Pain in left knee; M19.041 Primary osteoarthritis, right hand; M19.042 Primary osteoarthritis, left hand
CPT/HCPCS: 99214

== ENCOUNTER 2023-10-02 10:02 | Outpatient (REF) | payer OTHER, SELFPAY ==
[2023-10-02 10:22] LABS: MANUAL DIFF FLAG NO
[2023-10-02 11:17] LABS: Basophils Percent Auto 0.5 % (0-2); Eosinophils Absolute Auto 0.1 X10*3/uL (0.0-0.4); Eosinophils Percent Auto 1.7 % (0-4); Hematocrit 35.1 % (37.0-47.0); Hemoglobin 11.4 g/dl (12.0-16.0); Imm Gran Abs Auto 0.02 X10*3/uL (0.00-0.03); Imm Gran Pct Auto 0.3 % (0.0-0.4); Lymphocytes Absolute Auto 1.7 X10*3/uL (1.2-4.9); Lymphocytes Percent Auto 27.5 % (20-40); Mean Corpuscular HGB Conc 32.5 g/dl (31.0-35.0); Mean Corpuscular Volume 92.4 fL (80.0-98.0); Mean Platelet Volume 9.9 fL (9.4-12.3); Monocytes Absolute Auto 0.5 X10*3/uL (0.1-1.2); Monocytes Percent Auto 8.4 % (2-11); Neutrophils Absolute Auto 3.9 x10*3/uL (2.0-8.3); Neutrophils Percent Auto 61.6 % (45-73); Platelet Count 346 X10*3/uL (160-400); White Blood Count 6.3 X10*3/uL (4.8-10.8)
[2023-10-02 11:23] LABS: Appearance Urine Clear; Color Urine Yellow; Glucose Urine UA Negative (Negative); Leukocyte Esterase Urine Trace (Negative); Nitrite Urine Negative (Negative); PH 6.5 (5.0-9.0); UMIC TRIGGER UACC YES; Urine Blood Negative (Negative); Urine Ketones Negative (Negative); Urine Protein Negative (Neg-Trace)
[2023-10-02 11:24] LABS: Estimated Average Glucose 103 mg/dL; Hemoglobin A1c % 5.2 % (<6.0)
[2023-10-02 11:57] LABS: Parathyroid Hormone Intact 106.9 pg/mL (8.7-77.1)
[2023-10-02 12:01] LABS: Alanine Aminotransferase 13 U/L (0-31); Albumin Level 4.3 g/dL (3.5-5.0); Alkaline Phosphatase 94 U/L (39-117); Anion Gap 10 (12-20); Aspartate Amino Transferase 16 U/L (5-31); Bilirubin Total 0.3 mg/dL (0.0-1.0); Blood Urea Nitrogen 21 mg/dL (9-16); Carbon Dioxide 26 mmol/L (22-29); Chloride 108 mmol/L (96-108); Cholesterol 179 mg/dL (<200); Estimated Glomerular Filt Rate > 60; Glucose Fasting 81 mg/dL (60-99); HDL Cholesterol 61 mg/dL (>40); LDL Cholesterol Calculated 106 mg/dL (<100); Potassium 4.9 mmol/L (3.3-5.1); Sodium 139 mmol/L (135-145); Total Protein 7.5 g/dL (6.5-8.0); Triglycerides 64 mg/dL (<150)
[2023-10-02 12:19] LABS: Free T4 (Free Thyroxine) 1.35 ng/dL (0.71-1.85); Thyroid Stimulating Hormone 0.64 uIU/mL (0.32-4.0); Vitamin D 25-OH Total 39.6 ng/mL (>30)
[2023-10-02 12:28] LABS: Bacteria Urine None Seen (None Seen); Hyaline Casts Urine 0-2 /LPF (0-2); RBC Urine 0-2 /HPF (0-2); Squamous Epithelial Cell Urine 0-2 /HPF (0-2); WBC Urine 0-5 /HPF (0-5)
[2023-10-05 11:34] LABS: Calcium, Ionized 5.8 mg/dL (4.7-5.5)
== END 2023-10-02 10:03 | disposition home or self-care (01) ==
LOC: HO.LAB 10:02
PROVIDERS: PCP Internal Medicine; Visit Provider Internal Medicine
DX: E83.52 Hypercalcemia (principal); I10 Essential (primary) hypertension; E78.00 Pure hypercholesterolemia, unspecified; E03.9 Hypothyroidism, unspecified; R73.9 Hyperglycemia, unspecified
CPT/HCPCS: 36415; 80053; 80061; 81001; 82306; 82330; 83036; 83970; 84439; 84443; 85025

== ENCOUNTER 2023-12-01 14:23 | Outpatient (AMB) | payer OTHER, SELFPAY ==
--- NOTE | 2023-12-01 14:31 | MHC.PC.OV ---
Intake Visit Reasons: EP mouth sores (lobby) Allergies vancomycin [VANCOMYCIN] Allergy (Intermediate, Verified 10/02/23 09:49) SWELLING levofloxacin [From Levaquin] Allergy (Unknown, Verified 10/02/23 09:49) RASH Tobacco use date assessed: 10/02/23 PFSH Medical History Hyperparathyroidism Hypercalcemia History of opioid abuse History of melanoma Vitamin D deficiency Pure hypercholesterolemia Obesity (BMI 30-39.9) Benign essential hypertension Acquired hypothyroidism Surgical History Hx of tonsillectomy History of delivery History of surgery Family History Father No problems noted. Mother Cancer Other Mental health problem Substance abuse Social History Housing: Apartment Alcohol intake: former Patient Tobacco Use Status: Former Tobacco user e-Cigarette/Vaping Use: Never Used Second Hand Smoke Exposure: Yes service: No Current occupational status: disabled Cognitive needs: No Hearing needs: No Vision needs: Yes Questionnaire Thrive Questionnaire Date Thrive assessed: 10/02/23 ROGER-7 AMB Questionnaire ROGER-7 Date ROGER - 7 assessed: 10/02/23 Source: Developed by Drs. Cristi Fuentes, Frances Ayon, Chaparro Harrison and colleagues, with an educational jimmy from [employer]. Physical exam (Primary Care) Tobacco/Smoking Status: Tobacco use Status Tobacco use date assessed 10/02/23 10/02/23 09:01 Patient Tobacco Use Status Former Tobacco user 10/02/23 09:01 e-Cigarette/Vaping Use Never Used 10/02/23 09:01 Thrive Assessment: Date of Thrive Assessment Date Thrive assessed 10/02/23 10/02/23 09:01 Coding
--- NOTE | 2023-12-01 14:32 | AM.OFFWIN_ITS ---
Intake Vital Signs 12/01/23 14:33 Height 4 ft 11 in BP 124/62 Blood Pressure Location Rt brachial Position Sitting Pulse 62 Pulse Source Pulse Oximeter Temp 98.4 F Temp Source Oral Pulse Oximetry (%) 97 Oxygen Delivery Method Room Air Intake Visit Reasons: EP mouth sores (lobby) Intake Note: pt started with sores on her tongue and this started Sat night pt says it is painful it hurts to talk and eat Patient Tobacco Use Status: Former Tobacco user Allergies vancomycin [VANCOMYCIN] Allergy (Intermediate, Verified 12/01/23 14:34) SWELLING levofloxacin [From Levaquin] Allergy (Unknown, Verified 12/01/23 14:34) RASH HPI HPI Comments History of Present Illness Details Patient is a 63-year-old female in today for a sick visit. She has a past medical history significant for hypothyroid and hypertension. The patient states that over the past few days she has developed sore in her mouth that is making it hard for her to eat and drink. Patient denies fever, chest pain, numbness, nausea, vomiting, diarrhea. Patient states she also has some episodes of feeling dizzy. Patient's EOMI intact, CN2-12 intact. Patient + [place]-Hallpike maneuver in office. [facility] Medical History Hyperparathyroidism Hypercalcemia History of opioid abuse History of melanoma Vitamin D deficiency Pure hypercholesterolemia Obesity (BMI 30-39.9) Benign essential hypertension Acquired hypothyroidism Surgical History Hx of tonsillectomy History of delivery History of surgery Family History Father No problems noted. Mother Cancer Other Mental health problem Substance abuse Social History Housing: Apartment Alcohol intake: former Patient Tobacco Use Status: Former Tobacco user e-Cigarette/Vaping Use: Never Used Second Hand Smoke Exposure: Yes service: No Current occupational status: disabled Cognitive needs: No Hearing needs: No Vision needs: Yes Review of Systems Const All systems reviewed & are unremarkable except as noted in HPI and below Denies headache(s) ENT Reports vertigo, Denies otalgia, Denies headache(s), Reports mouth lesions (Canker on tongue) and Denies tongue swelling Card Denies chest pain and Denies dyspnea Resp Denies dyspnea Neuro Reports vertigo and Denies headache(s) Aller/Immun Denies tongue swelling Physical Exam Vital Signs: Last Vital Signs Temp 98.4 F 12/01/23 14:33 Pulse 62 12/01/23 14:33 BP 124/62 12/01/23 14:33 Pulse Ox 97 12/01/23 14:33 Oxygen Delivery Method Room Air 12/01/23 14:33 Vital signs reviewed stable Const Other: Appearance: Alert.? Oriented X3.? No acute distress.? Head: Normocephalic, atraumatic, Eyes: Pupils equal, round and reactive to light.? ENT: Pharynx normal.?TM intact and pearly baptiste. Mouth: + sore on front of tongue, white center red borders. +tenderness. Neck: Normal inspection.? Neck supple.? CVS: Normal heart rate and rhythm.? Pulses normal.? Respiratory: No respiratory distress.? Breath sounds normal.? Neuro: Oriented X 3.? No motor deficit.? No sensory deficit. CN 2-12 intact Assessment & Plan Assessment & Plan (1) BPPV (benign paroxysmal positional vertigo): Comment: Patient will be given meclizine and prednisone. Patient has been educated on the side effects of these medications at take them properly Code(s): H81.10 - Benign paroxysmal vertigo, unspecified ear Qualifiers: Laterality: unspecified laterality Qualified Code(s): H81.10 - Benign paroxysmal vertigo, unspecified ear Plan: Take your medications as prescribed. If you were prescribed antibiotics today, it is important that you take your medication to their entirety, do not skip any doses, do not finish them early. Follow-up with your primary care provider this week. Return to the emergency department with new or worsening symptoms. Such as fevers, chills, chest pain, shortness of breath, nausea, vomiting, dizziness, headache, vision changes, lethargy In case of emergency call 911 (2) Canker sores oral: Comment: Patient will be given benzocaine gel to placed directly on canker sore. Patient also educated on foods to avoid and potential irritants. Code(s): K12.0 - Recurrent oral aphthae Plan: Follow-up with PCP Medications: New meclizine 25 mg PO BID PRN 30 tabs 0RF dizziness prednisone 20 mg PO BID 8 tabs 0RF benzocaine 20% (Anbesol (benzocaine) Maximum Strength) 1 appl mucous membrane TID PRN 9 grams 0RF mouth irritation Coding Level of Care Code Est Pt Level 3 (88609) Diagnoses Benign paroxysmal positional vertigo, unspecified laterality H81.10 Laterality: unspecified laterality Canker sores oral K12.0 Time Spent (min) 21
[2023-12-01 14:33] VITALS: BP 124/62; PULSE 62; TEMP 36.9; O2SAT 97
== END 2023-12-01 15:44 | disposition home or self-care (01) ==
PROVIDERS: PCP Internal Medicine; Visit Provider Nurse Practitioner Primary Care
DX: H81.13 Benign paroxysmal vertigo, bilateral (principal); K12.0 Recurrent oral aphthae
CPT/HCPCS: 99213

== ENCOUNTER 2024-01-14 08:58 | Outpatient (REF) | payer OTHER, SELFPAY ==
--- NOTE | ~2024-01-14 | MM_ITS ---
EXAMINATION: MM SCREENING DIGITAL BREAST TOMOSYNTHESIS, BILATERAL CLINICAL INFORMATION: Screening. Asymptomatic. COMPARISON: Mammography: New Baseline exam. Priors aren't and 10 years old, unobtainable. TECHNIQUE: Digital breast tomosynthesis is performed in both the craniocaudal and mediolateral oblique views along with computer-aided detection (CAD). Synthesized 2D images are generated from the tomosynthesis. FINDINGS: There are scattered areas of fibroglandular density (ACR BI-RADS breast composition Category b). Focal asymmetry noted in the central right breast retroareolar region of the one third. Recommend diagnostic views to include spot compression views in the CC and MLO projections. In addition, there are are 2 additional small focal asymmetries in the upper outer right breast, for which spot compression views are recommended. Ultrasound recommended should the abnormality persist. There are skin calcifications in the left breast medially. No suspicious findings in the left breast. No skin or axillary findings in either breast. MM/MM tomosynthesis screening BI IMPRESSION: There are 3 asymmetries in the right breast as detailed above, for which spot compression views are recommended, as well as a 90 degree mediolateral view. Ultrasound may be required as determined by the interpreting radiologist. There is no suspicious abnormality in the left breast. ASSESSMENT: BI-RADS BI-RADS 0 - Incomplete: Needs additional Imaging. RECOMMENDATION: 1. Additional views of the right breast. 2. Targeted ultrasound if warranted after review of the additional views. 3. Radiology department staff will contact the patient for additional imaging. Additional Imaging required This examination should not preclude the clinical evaluation of a suspicious palpable abnormality.
== END 2024-01-14 08:59 | disposition home or self-care (01) ==
LOC: HO.MAMMO 08:58
PROVIDERS: PCP Internal Medicine; Visit Provider Internal Medicine
DX: Z12.31 Encounter for screening mammogram for malignant neoplasm of breast (principal)
CPT/HCPCS: 77063; 77067

== ENCOUNTER → 2024-01-14 09:15 | Outpatient (BNV) | payer OTHER, SELFPAY | PROVIDERS: PCP Internal Medicine; Visit Provider Radiology Diagnostic Radiology | DX: Z12.31 Encounter for screening mammogram for malignant neoplasm of breast (principal) | CPT/HCPCS: 77063; 77067 ==

== ENCOUNTER 2024-02-02 09:51 | Outpatient (AMB) | payer OTHER, SELFPAY ==
[2024-02-02 09:55] VITALS: BP 116/62; PULSE 64; O2SAT 97; BMI 35.5
--- NOTE | 2024-02-02 09:55 | MHC.PC.OV ---
Vital Signs 02/02/24 09:55 Height 4 ft 11 in Weight 176 lb BMI 35.5 BP 116/62 Blood Pressure Location Lt brachial Position Sitting Pulse 64 Pulse Source Pulse Oximeter Pulse Oximetry (%) 97 Oxygen Delivery Method Room Air Intake Visit Reasons: hypercalcemia, hypothyroidism, HTN Head Baggage Porter Required: No Supervisor Records Change: Not Required per policy Accompanied by: Self / Same As Patient Allergies vancomycin [VANCOMYCIN] Allergy (Intermediate, Verified 02/02/24 10:07) SWELLING levofloxacin [From Levaquin] Allergy (Unknown, Verified 02/02/24 10:07) RASH Medication List - Last Reconciled 02/02/24 by Steven Dejesus MD benzocaine 20% (Anbesol (benzocaine) Maximum Strength) 1 appl mucous membrane TID PRN cholecalciferol (vitamin D3) 50 mcg PO DAILY levothyroxine 125 mcg PO QAM meclizine 25 mg PO BID PRN valsartan 160 mg PO BID Tobacco use date assessed: 10/02/23 Dental Screening Dental Screen Date: 10/02/23 HPI hypercalcemia, hypothyroidism, HTN HPI Details Patient comes in today for her follow up visit States that she feels okay She denies any headaches or dizziness Denies any chest pains, no SOB No nausea/vomiting, no abdominal pain No change in bowel habits noted States that she ran out of her Amlodipine about a month ago and for unclear reasons, her pharmacy supposedly did not receive the refill orders from us even though her Rx refills were sent in early last month Patient has been checking her blood pressure regularly since her Amlodipine ran out and brought in her BP log today, which shows systolic BP ranging from 97 to 133 mm at the highest and diastolic BP ranging from 63 to 79 mm Patient also adds that she feels better since her Amlodipine 2.5 mg Rx ran out last month She has also noticed that her ankles and feet are not as swollen since she came off her Amlodipine Adds that she has been having trouble sleeping at night for a while now, mostly because she has to keep getting up to go to the bathroom multiple times in the middle of the night She denies any pain or burning sensation on urination PFSH Medical History Hyperparathyroidism Hypercalcemia History of opioid abuse History of melanoma Vitamin D deficiency Pure hypercholesterolemia Obesity (BMI 30-39.9) Benign essential hypertension Acquired hypothyroidism Surgical History Hx of tonsillectomy History of delivery History of surgery Family History Father No problems noted. Mother Cancer Other Mental health problem Substance abuse Social History Housing: Apartment Alcohol intake: former Patient Tobacco Use Status: Former Tobacco user e-Cigarette/Vaping Use: Never Used Second Hand Smoke Exposure: Yes service: No Current occupational status: disabled Cognitive needs: No Hearing needs: No Vision needs: Yes Questionnaire PHQ-9 Over the last 2 weeks, how often have you been bothered by any of the following problems? Depression Screening Interpretation: Negative Depression Screening Done: Yes Source: Developed by Drs. Cristi Fuentes, Frances Ayon, Chaparro Harrison and colleagues, with an educational jimmy from [employer]. Thrive Questionnaire Date Thrive assessed: 10/02/23 Currently or been in a relationship where the following occur: no concerns reported THRIVE Score: 0 ROGER-7 AMB Questionnaire ROGER-7 Date ROGER - 7 assessed: 10/02/23 Source: Developed by Drs. Cristi Fuentes, Frances Ayon, Chaparro Harrison and colleagues, with an educational jimmy from [employer]. Review of Systems Const Denies chills, Denies fatigue, Denies fever(s) and Denies headache(s) (states that her headaches occur rarely nowadays) Eyes Denies blurry vision ENT Denies dysphagia, Denies dizziness, Denies otalgia, Denies headache(s) (states that her headaches occur rarely nowadays), Denies neck pain, Denies odynophagia and Denies sore throat Card Denies chest pain, Denies palpitations and Denies dyspnea Resp Denies cough, Denies dyspnea and Denies wheezing GI Denies abdominal pain, Denies constipation, Denies dysphagia, Denies heartburn, Denies diarrhea, Denies nausea, Denies odynophagia and Denies vomiting Denies difficulty voiding, Reports nocturia, Denies dysuria, Reports urinary incontinence (rarely, mostly urge incontinence) and Denies urinary urgency Musc Denies back pain, Reports arthralgias (over both knees; in the right shoulder (on and off)) and Denies neck pain Skin/Breast Denies rash Neuro Denies dizziness and Denies headache(s) (states that her headaches occur rarely nowadays) Psych Reports anxiety Endo Denies fatigue and Denies palpitations Aller/Immun Denies wheezing Physical exam (Primary Care) Vital Signs: Last Vital Signs Pulse 64 02/02/24 09:55 BP 116/62 02/02/24 09:55 Pulse Ox 97 02/02/24 09:55 Oxygen Delivery Method Room Air 02/02/24 09:55 BMI result Body Mass Index 35.5 Tobacco/Smoking Status: Tobacco use Status Tobacco use date assessed 10/02/23 02/02/24 09:56 Patient Tobacco Use Status Former Tobacco user 02/02/24 09:56 e-Cigarette/Vaping Use Never Used 02/02/24 09:56 Depression Screening Interpretation: Negative Thrive Assessment: Date of Thrive Assessment Date Thrive assessed 10/02/23 02/02/24 09:56 Currently or been in a relationship where the following occur: no concerns reported Const General: no acute distress and alert HENMT Ears: TM's normal bilaterally and EAC's normal Throat: Yes posterior oropharynx normal and Yes tonsils normal (no TP congestion noted) Neck Neck: Yes no lymphadenopathy and Yes supple Thyroid: Thyroid normal Resp Auscultation: clear to auscultation bilaterally, no rales and no wheezes Cardio Rate: regular rate Rhythm: regular rhythm Heart sounds: no murmurs GI Palpation (GI): Soft to palpation and nontender Auscultation: normal bowel sounds General: Yes no CVA tenderness Back/Spine/Pelvis Back: no CVA tenderness Thoracic/Lumbar Spine: No lumbar spinal tenderness Skin Rashes: no rashes Extrem General: Yes no clubbing, cyanosis or edema Right lower extremity: knee Details: tenderness Location: of the pre-patellar area and of the infrapatellar area; no swelling Left lower extremity: knee Details: tenderness Location: of the pre-patellar area and of the infrapatellar area; no swelling Results Reviewed Results Reviewed: Laboratory Tests 10/02/23 10/02/23 10:07 10:19 WBC 6.3 Hgb 11.4 L Hct 35.1 L Plt Count 346 Sodium 139 Potassium 4.9 Creatinine 0.75 Estimated GFR > 60 Fasting Glucose 81 Hemoglobin A1c % 5.2 Calcium 11.0 H Ionized Calcium 5.8 H AST 16 ALT 13 Triglycerides 64 Cholesterol 179 LDL Cholesterol, Calc 106 H HDL Cholesterol 61 25-OH Vitamin D Total 39.6 TSH 0.64 Free T4 1.35 PTH Intact 106.9 H Ur Specific [place] 1.010 Urine Protein Negative Urine Glucose (UA) Negative Urine Blood Negative Urine Nitrite Negative Ur Leukocyte Esterase Trace H Assessment and Plan Assessment & Plan (1) Hypercalcemia: Code(s): E83.52 - Hypercalcemia Plan: Patient was previously on HCTZ but this has been held since late last year and her serum calcium level remains elevated at 11.0 when last checked in September 2023 Her ionized calcium level was also slightly elevated and intact PTH level was high, consistent with primary hyperparathyroidism She was last seen by endocrinology for follow up back in June 2023 and was advised that as she does not have no concerning acute symptoms currently (including kidney stones on renal US or osteoporosis on her recent BMD), she does not meet criteria for surgical exploration and recommend that she continue to follow up with her PCP and have her serum calcium level monitored regularly every 6 months or so and refer back to endocrinology if her serum calcium level should rise to over 11.0 again Will have patient recheck her labs in 4 months for follow up (2) Elevated parathyroid hormone: Code(s): E34.9 - Endocrine disorder, unspecified Plan: Patient likely has primary hyperparathyroidism, based on her recent lab results She was seen by endocrinology late last year and was advised that she did not meet the criteria for surgical exploration of her primary hyperparathyroidism, and have recommended that she continue monitor her labs through her PCP and be referred back only when her serum calcium level goes back up to over 11.0 (3) Benign essential hypertension: Code(s): I10 - Essential (primary) hypertension Plan: Reinforced low sodum diet - goal is systolic BP of 120 to 130 mm or less Continue Valsartan 160 mg BID She was also started additionally on Amlodipine 2.5 mg QD at her last visit but states that she ran out of this Rx about a month ago and could not get her pharmacy to refill the Rx States that she actually feels better being off the Rx and her ankles and feet are not as swollen since she came off Amlodipine Patient also brought in her BP log, which she has been keeping since her Amlodipine Rx ran out, and her log shows systolic BP ranging from 97 to 133 mm at the highest and diastolic BP ranging from 63 to 79 mm She is advised that since her blood pressure appears to be doing well without Amlodipine, will continue to hold off on starting her back on the Rx at this time She is advised to continue monitoring her blood pressure regularly (4) Acquired hypothyroidism: Code(s): E03.9 - Hypothyroidism, unspecified Plan: Continue Levothyroxine 125 mcg QD TFTs checked a few months ago were within normal range; will recheck her TFTs in 4 months for follow up (5) Pure hypercholesterolemia: Code(s): E78.00 - Pure hypercholesterolemia, unspecified Plan: Reinforced low cholesterol diet Will also recheck her fasting lipids in 4 months for follow up (6) Vitamin D deficiency: Code(s): E55.9 - Vitamin D deficiency, unspecified Plan: Continue Vitamin D3 2000 units QD (7) Knee pain, bilateral: Code(s): M25.561 - Pain in right knee; M25.562 - Pain in left knee Qualifiers: Chronicity: unspecified Qualified Code(s): M25.561 - Pain in right knee; M25.562 - Pain in left knee Plan: X-rays of both knees done back in January 2023 revealed (+) mild degenerative changes in both knees Will consider referring her to orthopedics if her knee symptoms progress (8) Primary osteoarthritis of hands, bilateral: Code(s): M19.041 - Primary osteoarthritis, right hand; M19.042 - Primary osteoarthritis, left hand Plan: X-rays of both hands done in February 2018 showed (+) mild arthritis changes at the DIP joint of the 5th fingers of both hands; no other abnormalities noted She is encouraged to continue with hand and finger exercises regularly to help manage her symptoms (9) Overactive bladder: Code(s): N32.81 - Overactive bladder Plan: She also appears to be experiencing symptoms of overactive bladder Will try starting her on Detrol LA 4 mg Q HS to see if this will help with her urinary symptoms and allow her to be able to get some sleep at night, which has been frequently interrupted by her trips to the bathroom at night for several months now If symptoms do not improve significantly with Rx, can consider referring her to urology for further evaluation and management (10) History of melanoma: Code(s): Z85.820 - Personal history of malignant melanoma of skin Plan: Follow up with [facility] as scheduled for continuing surveillance (11) History of opioid abuse: Code(s): F11.11 - Opioid abuse, in remission Plan: Used to take Suboxone but was able to come off this a couple of years ago States that she has been clean for years now with no cravings or relapse (12) Anxiety: Code(s): F41.9 - Anxiety disorder, unspecified Plan: Used to take Lorazepam but states that she has been doing well OFF of it for several months with no flare ups of her anxiety (13) Obesity (BMI 30-39.9): Code(s): E66.9 - Obesity, unspecified Plan: Reinforced diet/exercise as tolerated/lose weight Plan Follow up in 4 months Orders: Orders Complete Blood Count Auto Diff 4 Months D64.9 - Anemia, unspecified, E83.52 - Hypercalcemia Comprehensive [place]. Panel Fast 4 Months E78.00 - Pure hypercholesterolemia, unspecified, E83.52 - Hypercalcemia Lipid Panel 4 Months E78.00 - Pure hypercholesterolemia, unspecified, E83.52 - Hypercalcemia Free T4 (Free Thyroxine) 4 Months E03.9 - Hypothyroidism, unspecified, E83.52 - Hypercalcemia UA CC w/rflx Micro + Cult 4 Months E83.52 - Hypercalcemia, R30.0 - Dysuria Thyroid Stimulating Hormone 4 Months E03.9 - Hypothyroidism, unspecified, E83.52 - Hypercalcemia Vitamin D 25-OH Total 4 Months E55.9 - Vitamin D deficiency, unspecified, E83.52 - Hypercalcemia Parathyroid Hormone Intact 4 Months E83.52 - Hypercalcemia Medications: New tolterodine ER (Detrol LA) 4 mg PO BEDTIME 30 days 30 caps 3RF On Hold amlodipine Hold Comment: Doctor's Order 2.5 mg PO DAILY 90 tabs 1RF Coding Level of Care Code Est Pt Level 4 (28866) Diagnoses Hypercalcemia E83.52 Elevated parathyroid hormone E34.9 Benign essential hypertension I10 Acquired hypothyroidism E03.9 Pure hypercholesterolemia E78.00 Vitamin D deficiency E55.9 Pain in both knees, unspecified chronicity M25.561; M25.562 Chronicity: unspecified Primary osteoarthritis of hands, bilateral M19.041; M19.042 Overactive bladder N32.81 History of melanoma Z85.820 History of opioid abuse F11.11 Anxiety F41.9 Obesity (BMI 30-39.9) E66.9
== END 2024-02-02 10:29 | disposition home or self-care (01) ==
PROVIDERS: PCP Internal Medicine; Visit Provider Internal Medicine
DX: E83.52 Hypercalcemia (principal); F11.11 Opioid abuse, in remission; E34.9 Endocrine disorder, unspecified; I10 Essential (primary) hypertension; E03.9 Hypothyroidism, unspecified; E78.00 Pure hypercholesterolemia, unspecified; E55.9 Vitamin D deficiency, unspecified; M25.561 Pain in right knee; M25.562 Pain in left knee; M19.041 Primary osteoarthritis, right hand; M19.042 Primary osteoarthritis, left hand; N32.81 Overactive bladder
CPT/HCPCS: 99214

== ENCOUNTER 2024-02-16 12:59 | Outpatient (REF) | payer OTHER, SELFPAY ==
--- NOTE | ~2024-02-16 | MM_ITS ---
EXAMINATION: MM DIAGNOSTIC DIGITAL BREAST TOMOSYNTHESIS, RIGHT CLINICAL INFORMATION: The patient presents for additional breast imaging to further evaluate 2 right upper outer quadrant focal asymmetries and 1 centrally located right asymmetry. COMPARISON: Mammography: This study is compared with prior mammography from 01/14/2024. January 08 24 cm in new baseline examination with no prior mammograms for comparison. TECHNIQUE: Digital breast tomosynthesis is performed. 2D images are generated from the tomosynthesis. The following views are obtained: Rolled CC views, a full lateral view of the right breast and CC and MLO spot compression of the right breast are obtained. FINDINGS: There are scattered areas of fibroglandular density (ACR BI-RADS breast composition Category b). Additional views show no significant mass, architectural abnormality, or abnormal calcifications. There are no mammographic signs of malignancy. MM/MM tomosynthesis added views R IMPRESSION: No mammographic evidence of malignancy. ASSESSMENT: BI-RADS BI-RADS 1 - Negative RECOMMENDATION: 1 year F/U Results were provided to the patient at time of visit by the technologist. This patient's information was entered into a reminder system with a target due date for their next mammogram.
== END 2024-02-16 13:00 | disposition home or self-care (01) ==
LOC: HO.MAMMO 12:59
PROVIDERS: PCP Internal Medicine; Visit Provider Internal Medicine
DX: N64.89 Other specified disorders of breast (principal)
CPT/HCPCS: 77061; 77065

== ENCOUNTER → 2024-02-16 13:30 | Outpatient (BNV) | payer OTHER, SELFPAY | PROVIDERS: PCP Internal Medicine; Visit Provider Radiology Diagnostic Radiology | DX: R92.8 Other abnormal and inconclusive findings on diagnostic imaging of breast (principal) | CPT/HCPCS: 77065; G0279 ==

== ENCOUNTER 2024-06-09 10:30 | Outpatient (AMB) | payer OTHER, SELFPAY ==
[2024-06-09 10:43] VITALS: BP 128/80; PULSE 57; O2SAT 97; BMI 35.8
--- NOTE | 2024-06-09 10:43 | A.OFFPC_ITS ---
Vital Signs 06/09/24 10:43 Height 4 ft 11 in Weight 177 lb 2 oz BMI 35.8 BP 128/80 Blood Pressure Location Lt brachial Position Sitting Pulse 57 Pulse Source Pulse Oximeter Pulse Oximetry (%) 97 Oxygen Delivery Method Room Air Intake Visit Reasons: hyperparathyroidism, hypercalcemia, HTN, hypoth Bobbin Collector Required: No Accompanied by: Self / Same As Patient Allergies vancomycin [VANCOMYCIN] Allergy (Intermediate, Verified 06/09/24 11:07) SWELLING levofloxacin [From Levaquin] Allergy (Unknown, Verified 06/09/24 11:07) RASH Medication List - Last Reconciled 06/09/24 by Steven Dejesus MD benzocaine 20% (Anbesol (benzocaine) Maximum Strength) 1 appl mucous membrane TID PRN cholecalciferol (vitamin D3) 50 mcg PO DAILY levothyroxine 125 mcg PO QAM meclizine 25 mg PO BID PRN valsartan 160 mg PO BID Tobacco use date assessed: 06/09/24 Dental Screening Dental Screen Date: 06/09/24 Did you have a dental visit in the last 12 months?: No Did you have a dental problem in the last 6 months where you did not have access to dental care?: No Was dental information given to patient?: No HPI hyperparathyroidism, hypercalcemia, HTN, hypoth HPI Details Patient comes in today for her follow up visit States that she feels okay She denies any headaches or dizziness Denies any chest pains, no increased SOB No nausea/vomiting, no abdominal pain No change in bowel habits noted States that she continues to experience urinary frequency and nocturia - has to get up to use the bathroom at least 3 times a night She has been tried on Detrol LA a few months ago but she has not experienced any improvement at all from the Rx so she stopped taking it a month or so ago She was not able to get her follow up labs done prior to her appointment today [facility] Medical History Hyperparathyroidism Hypercalcemia History of opioid abuse History of melanoma Vitamin D deficiency Pure hypercholesterolemia Obesity (BMI 30-39.9) Benign essential hypertension Acquired hypothyroidism Surgical History Hx of tonsillectomy History of delivery History of surgery Family History Father No problems noted. Mother Cancer Other Mental health problem Substance abuse Social History Housing: Apartment Alcohol intake: former Patient Tobacco Use Status: Former Tobacco user e-Cigarette/Vaping Use: Never Used Second Hand Smoke Exposure: Yes service: No Current occupational status: disabled Cognitive needs: No Hearing needs: No Vision needs: Yes Questionnaire PHQ-9 Over the last 2 weeks, how often have you been bothered by any of the following problems? 1. Little interest or pleasure in doing things: not at all 2. Feeling down, depressed, or hopeless: not at all 3. Trouble falling or staying asleep, or sleeping too much: not at all 4. Feeling tired or having little energy: not at all 5. Poor appetite or overeating: not at all 6. Feeling bad about yourself - or that you are a failure or have let yourself or your family down: not at all 7. Trouble concentrating on things, such as reading the newspaper or watching television: not at all 8. Moving or speaking so slowly that other people could have noticed. Or the opposite - being so fidgety or restless that you have been moving around a lot more than usual: not at all 9. Thoughts that you would be better off or of hurting yourself in some way: not at all Total score: 0 Depression Screening Interpretation: Negative Depression Screening Done: Yes 67110 - PHQ-9 Billing: Yes Source: Developed by Drs. Cristi Fuentes, Frances Ayon, Chaparro Harrison and colleagues, with an educational jimmy from [employer]. Thrive Questionnaire Date Thrive assessed: 06/09/24 I am a: Patient What is your living situation today?: I have a steady place to live Within the past 12 months, did the food you bought not last and you didn't have the money to get more?: Never true Within the past 12 months, did you worry whether your food would run out before you got money to buy more?: Never true Do you have trouble paying for medicines?: No Do you have trouble getting transportation to medical appointments?: No Do you have trouble paying your heating and electricity bill?: No Do you have trouble taking care of your child, family member or friend?: No Do you have trouble with day-to-day activities such as bathing, preparing meals, shopping, managing finances, etc.?: No Are you currently unemployed and looking for a job?: No Are you interested in more education?: No Please select the resources that you would like help with: None Currently or been in a relationship where the following occur: No concerns reported THRIVE Score: 0 AUDIT C Alcohol Use Questionnaire (AUDIT-C) 1. How often do you have a drink containing alcohol?: Never 3. How often do you have six or more drinks on one occasion?: Never Total Score: 0 Score Reviewed/Action Taken: Yes ROGER-7 AMB Questionnaire ROGER-7 Date ROGER - 7 assessed: 06/09/24 Feeling nervous, anxious, or on edge: 0 = Not at all Not being able to stop or control worryin = Not at all Worrying too much about different things: 0 = Not at all Trouble relaxin = Not at all Being so restless that it is hard to sit still: 0 = Not at all Becoming easily annoyed or irritable: 0 = Not at all Feeling afraid as if something awful might happen: 0 = Not at all Total ROGER-7 score (0-4 normal; 5-9 mild; 10-14 moderate; 15-21 severe): 0 Source: Developed by Drs. Cristi Fuentes, Frances Ayon, Chaparro Harrison and colleagues, with an educational jimmy from [employer]. Review of Systems Const Denies chills, Denies fatigue, Denies fever(s) and Denies headache(s) ENT Denies dysphagia, Denies dizziness, Denies otalgia, Denies headache(s), Denies neck pain, Denies odynophagia and Denies sore throat Card Denies chest pain, Denies palpitations and Denies dyspnea Resp Denies cough, Denies dyspnea and Denies wheezing GI Denies abdominal pain, Denies constipation, Denies dysphagia, Denies heartburn, Denies diarrhea, Denies nausea, Denies odynophagia and Denies vomiting Denies difficulty voiding, Reports nocturia, Denies dysuria, Reports urinary incontinence (rarely, mostly urge incontinence) and Denies urinary urgency Musc Denies back pain, Reports arthralgias (over both knees; in the right shoulder (on and off)) and Denies neck pain Skin/Breast Denies rash Neuro Denies dizziness and Denies headache(s) Psych Reports anxiety Endo Denies fatigue and Denies palpitations Aller/Immun Denies wheezing Physical exam (Primary Care) Vital Signs: Last Vital Signs Pulse 57 06/09/24 10:43 BP 128/80 06/09/24 10:43 Pulse Ox 97 06/09/24 10:43 Oxygen Delivery Method Room Air 06/09/24 10:43 BMI result Body Mass Index 35.8 Tobacco/Smoking Status: Tobacco use Status Tobacco use date assessed 06/09/24 06/09/24 10:46 Patient Tobacco Use Status Former Tobacco user 06/09/24 10:46 e-Cigarette/Vaping Use Never Used 06/09/24 10:46 PHQ-9: PHQ-9 Score PHQ-9: Total score 0 06/09/24 10:50 Depression Screening Interpretation: Negative Thrive Assessment: Date of Thrive Assessment Date Thrive assessed 06/09/24 06/09/24 10:46 Currently or been in a relationship where the following occur: No concerns reported Const General: no acute distress and alert HENMT Ears: TM's normal bilaterally and EAC's normal Throat: Yes posterior oropharynx normal and Yes tonsils normal (no TP congestion noted) Neck Neck: Yes no lymphadenopathy and Yes supple Thyroid: Thyroid normal Resp Auscultation: clear to auscultation bilaterally, no rales and no wheezes Cardio Rate: regular rate Rhythm: regular rhythm Heart sounds: no murmurs GI Palpation (GI): Soft to palpation and nontender Auscultation: normal bowel sounds General: Yes no CVA tenderness Back/Spine/Pelvis Back: no CVA tenderness Thoracic/Lumbar Spine: No lumbar spinal tenderness Skin Rashes: no rashes Extrem General: Yes no clubbing, cyanosis or edema Right lower extremity: knee Details: tenderness Location: of the pre-patellar area and of the infrapatellar area; no swelling Left lower extremity: knee Details: tenderness Location: of the pre-patellar area and of the infrapatellar area; no swelling Assessment and Plan Assessment & Plan (1) Hypercalcemia: Code(s): E83.52 - Hypercalcemia Plan: Patient was previously on HCTZ but this has been held since late last year and her serum calcium level remains elevated at 11.0 when last checked in September 2023 Her ionized calcium level was also slightly elevated and intact PTH level was high, consistent with primary hyperparathyroidism She was last seen by endocrinology for follow up back in June 2023 and was advised that as she does not have any acute or concerning symptoms presently (including kidney stones on renal US or osteoporosis on her recent BMD), she does not meet criteria for surgical exploration and have recommended that she just continue with routine follow up with her PCP and have her serum calcium level monitored regularly every 6 months or so, and to refer her back to end ocrinology only if her serum calcium level goes up to over 11.2 She is advised to go and get her follow up labs done RAMIN so we can look into this again as she has not had any labs done since September 2023 (2) Elevated parathyroid hormone: Code(s): E34.9 - Endocrine disorder, unspecified Plan: Patient likely has primary hyperparathyroidism, based on her recent lab results She was seen by endocrinology late last year and was advised that she did not meet criteria for surgical exploration of her primary hyperparathyroidism, and have recommended that she just continue to monitor her labs through her PCP and be referred back only when her serum calcium level goes back up to over 11.2 (3) Benign essential hypertension: Code(s): I10 - Essential (primary) hypertension Plan: Reinforced low sodum diet - goal is systolic BP of 120 to 130 mm or less Continue Valsartan 160 mg BID She was also started additionally on Amlodipine 2.5 mg QD at her last visit but states that she ran out of this Rx about a month ago and could not get her pharmacy to refill the Rx States that she actually feels better being off the Rx and her ankles and feet are not as swollen since she came off Amlodipine Patient also brought in her BP log, which she has been keeping since her Amlodipine Rx ran out, and her log at her last visit showed systolic BP ranging from 97 to 133 mm at the highest and diastolic BP ranging from 63 to 79 mm She was advised at the time that since her blood pressure appears to be doing well without Amlodipine, will continue to hold off on Amlodipine at the time She is reminded to continue monitoring her blood pressure regularly (4) Acquired hypothyroidism: Code(s): E03.9 - Hypothyroidism, unspecified Plan: Continue Levothyroxine 125 mcg QD TFTs checked months ago were within normal range Will recheck her TFTs RAMIN for follow up (5) Pure hypercholesterolemia: Code(s): E78.00 - Pure hypercholesterolemia, unspecified Plan: Reinforced low cholesterol diet Will also recheck her fasting lipids RAMIN for follow up (6) Vitamin D deficiency: Code(s): E55.9 - Vitamin D deficiency, unspecified Plan: Continue Vitamin D3 2000 units QD (7) Knee pain, bilateral: Code(s): M25.561 - Pain in right knee; M25.562 - Pain in left knee Qualifiers: Chronicity: unspecified Qualified Code(s): M25.561 - Pain in right knee; M25.562 - Pain in left knee Plan: X-rays of both knees done back in January 2023 revealed (+) mild degenerative changes in both knees Will consider referring her to orthopedics if her knee symptoms progress (8) Primary osteoarthritis of hands, bilateral: Code(s): M19.041 - Primary osteoarthritis, right hand; M19.042 - Primary osteoarthritis, left hand Plan: X-rays of both hands done in February 2018 showed (+) mild arthritis changes at the DIP joint of the 5th fingers of both hands; no other abnormalities noted She is encouraged to continue with hand and finger exercises regularly to help manage her symptoms (9) Overactive bladder: Code(s): N32.81 - Overactive bladder Plan: She was started on a trial Detrol LA 4 mg Q HS at her last visit to see if this will help with her urinary symptoms and allow her to be able to get some sleep at night States that her trips to the bathroom frequently interrupts her sleep at night and she often feels tired, likely from lack of sleep She felt that the Rx did not really help much so she stopped taking them a couple of months ago Will now refer her to urology for further evaluation and management (10) History of melanoma: Code(s): Z85.820 - Personal history of malignant melanoma of skin Plan: Follow up with [facility] as scheduled for continuing surveillance (11) History of opioid abuse: Code(s): F11.11 - Opioid abuse, in remission Plan: She used to take Suboxone but was able to come off this a couple of years ago States that she has been clean for years now with no cravings or relapse (12) Anxiety: Code(s): F41.9 - Anxiety disorder, unspecified Plan: She used to take Lorazepam but states that she has been doing well OFF of it for several months with no flare ups of her anxiety (13) Obesity (BMI 30-39.9): Code(s): E66.9 - Obesity, unspecified Plan: Reinforced diet/exercise as tolerated/lose weight Plan Follow up in 4 months Orders: Orders Thyroid Stimulating Hormone 4 Months E03.9 - Hypothyroidism, unspecified Comprehensive [place]. Panel Fast 4 Months E78.00 - Pure hypercholesterolemia, unspecified Lipid Panel 4 Months E78.00 - Pure hypercholesterolemia, unspecified Calcium, Ionized 4 Months E83.52 - Hypercalcemia Free T4 (Free Thyroxine) 4 Months E03.9 - Hypothyroidism, unspecified Complete Blood Count Auto Diff 4 Months D64.9 - Anemia, unspecified UA CC w/rflx Micro + Cult 4 Months R30.0 - Dysuria Vitamin D 25-OH Total 4 Months E55.9 - Vitamin D deficiency, unspecified Referrals Urology Referral N32.81 - Overactive bladder Coding Level of Care Code Est Pt Level 4 (57441) Diagnoses Hypercalcemia E83.52 Elevated parathyroid hormone E34.9 Benign essential hypertension I10 Acquired hypothyroidism E03.9 Pure hypercholesterolemia E78.00 Vitamin D deficiency E55.9 Pain in both knees, unspecified chronicity M25.561; M25.562 Chronicity: unspecified Primary osteoarthritis of hands, bilateral M19.041; M19.042 Overactive bladder N32.81 History of melanoma Z85.820 History of opioid abuse F11.11 Anxiety F41.9 Obesity (BMI 30-39.9) E66.9
== END 2024-06-09 11:12 | disposition home or self-care (01) ==
PROVIDERS: PCP Internal Medicine; Visit Provider Internal Medicine
DX: E83.52 Hypercalcemia (principal); E34.9 Endocrine disorder, unspecified; I10 Essential (primary) hypertension; F11.11 Opioid abuse, in remission; E03.9 Hypothyroidism, unspecified; E78.00 Pure hypercholesterolemia, unspecified; E55.9 Vitamin D deficiency, unspecified; M25.561 Pain in right knee; M25.562 Pain in left knee; M19.041 Primary osteoarthritis, right hand; M19.042 Primary osteoarthritis, left hand; N32.81 Overactive bladder

== ENCOUNTER → 2024-06-09 10:30 | Outpatient (BNVA) | payer OTHER, SELFPAY | PROVIDERS: PCP Internal Medicine; Visit Provider Internal Medicine | DX: E83.52 Hypercalcemia (principal); E34.9 Endocrine disorder, unspecified; I10 Essential (primary) hypertension; E03.9 Hypothyroidism, unspecified; E78.00 Pure hypercholesterolemia, unspecified; E66.9 Obesity, unspecified; F41.1 Generalized anxiety disorder; N32.81 Overactive bladder; F11.11 Opioid abuse, in remission; M19.041 Primary osteoarthritis, right hand; M19.042 Primary osteoarthritis, left hand; M25.561 Pain in right knee; M25.562 Pain in left knee | CPT/HCPCS: 99212 ==

== ENCOUNTER 2024-06-16 07:29 | Outpatient (REF) | payer OTHER, SELFPAY ==
[2024-06-16 07:44] LABS: MANUAL DIFF FLAG NO
[2024-06-16 08:15] LABS: Basophils Percent Auto 0.3 % (0-2); Eosinophils Absolute Auto 0.2 X10*3/uL (0.0-0.4); Eosinophils Percent Auto 2.5 % (0-4); Hematocrit 37.4 % (37.0-47.0); Hemoglobin 12.5 g/dl (12.0-16.0); Imm Gran Abs Auto 0.04 X10*3/uL (0.00-0.03); Imm Gran Pct Auto 0.7 % (0.0-0.4); Lymphocytes Absolute Auto 1.4 X10*3/uL (1.2-4.9); Lymphocytes Percent Auto 23.4 % (20-40); Mean Corpuscular HGB Conc 33.4 g/dl (31.0-35.0); Mean Corpuscular Volume 89.7 fL (80.0-98.0); Mean Platelet Volume 9.6 fL (9.4-12.3); Monocytes Absolute Auto 0.5 X10*3/uL (0.1-1.2); Monocytes Percent Auto 8.6 % (2-11); Neutrophils Absolute Auto 3.8 x10*3/uL (2.0-8.3); Neutrophils Percent Auto 64.5 % (45-73); Platelet Count 357 X10*3/uL (160-400); Red Blood Count 4.17 X10*6/uL (4.20-5.50); Red Cell Distribution Width 12.7 % (11.0-16.0); White Blood Count 5.9 X10*3/uL (4.8-10.8)
[2024-06-16 08:32] LABS: Parathyroid Hormone Intact 129.5 pg/mL (8.7-77.1)
[2024-06-16 08:37] LABS: Alanine Aminotransferase 12 U/L (0-31); Albumin Level 4.5 g/dL (3.5-5.0); Alkaline Phosphatase 99 U/L (39-117); Anion Gap 11 (12-20); Aspartate Amino Transferase 16 U/L (5-31); Bilirubin Total 0.2 mg/dL (0.0-1.0); Blood Urea Nitrogen 19 mg/dL (9-16); Calcium 11.2 mg/dL (8.4-10.2); Carbon Dioxide 23 mmol/L (22-29); Chloride 112 mmol/L (96-108); Cholesterol 190 mg/dL (<200); Estimated Glomerular Filt Rate > 60; Glucose Fasting 104 mg/dL (60-99); HDL Cholesterol 55 mg/dL (>40); LDL Cholesterol Calculated 110 mg/dL (<100); Potassium 4.5 mmol/L (3.3-5.1); Sodium 141 mmol/L (135-145); Total Protein 7.8 g/dL (6.5-8.0); Triglycerides 126 mg/dL (<150)
[2024-06-16 08:41] LABS: Appearance Urine Clear; Color Urine Yellow; Glucose Urine UA Negative (Negative); Leukocyte Esterase Urine Trace (Negative); Nitrite Urine Negative (Negative); PH 5.5 (5.0-9.0); UMIC TRIGGER UACC YES; Urine Blood Negative (Negative); Urine Ketones Negative (Negative); Urine Protein Negative (Neg-Trace)
[2024-06-16 08:42] LABS: Free T4 (Free Thyroxine) 1.23 ng/dL (0.71-1.85); Thyroid Stimulating Hormone 0.62 uIU/mL (0.32-4.0); Vitamin D 25-OH Total 35.7 ng/mL (>30)
[2024-06-16 08:46] LABS: Bacteria Urine None Seen (None Seen); Hyaline Casts Urine 0-2 /LPF (0-2); RBC Urine 0-2 /HPF (0-2); Squamous Epithelial Cell Urine 0-2 /HPF (0-2); WBC Urine 0-5 /HPF (0-5)
== END 2024-06-16 07:30 | disposition home or self-care (01) ==
LOC: HO.LAB 07:29
PROVIDERS: PCP Internal Medicine; Visit Provider Internal Medicine
DX: E03.9 Hypothyroidism, unspecified (principal); E78.00 Pure hypercholesterolemia, unspecified; D64.9 Anemia, unspecified; E83.52 Hypercalcemia
CPT/HCPCS: 36415; 80053; 80061; 81001; 82306; 83970; 84439; 84443; 85025

== ENCOUNTER 2024-08-04 08:39 | Outpatient (AMB) | payer OTHER, SELFPAY ==
--- NOTE | 2024-08-04 09:10 | A.OFFVIS_ITS ---
Intake Visit Reasons: urinary frequency/nocturia Intake Note: New Patient presents for initial visit for urinary frequency and nocturia Urology Medications: previously tried tolterodine, no current medications Blood Thinner: none PVR: 132ml's Metallurgy Laboratory Technician Required: No Accompanied by: Self / Same As Patient Allergies vancomycin [VANCOMYCIN] Allergy (Intermediate, Verified 08/04/24 10:29) SWELLING levofloxacin [From Levaquin] Allergy (Unknown, Verified 08/04/24 10:29) RASH Medication List - Last Reconciled 08/04/24 by JOSE F SnyderP- cholecalciferol (vitamin D3) 50 mcg PO DAILY levothyroxine 125 mcg PO QAM meclizine 25 mg PO BID PRN terazosin 1 mg PO BEDTIME 30 days valsartan 160 mg PO BID HPI Comments Details: Lynette is a very pleasant 63-year-old female patient of Dr. Dejesus. She has a past medical history of hyperparathyroidism, hypercalcemia, melanoma, vitamin-D deficiency, hypercholesteremia, and hypertension. In discussion with the patient today she reports having follow-up with her PCP for ongoing urinary urgency, urinary frequency, and nocturia up to 5 times per night she has been experiencing for quite some time at which time she was trialed on tolterodine. She reports noting no improvement in lower urinary tract symptoms with this medication therefore she discontinued the medication a proximally 2 months ago. She continues to report lower urinary tract symptoms of urinary urgency, urinary frequency, and nocturia up to 5 times per night. In office urinalysis results reviewed with the patient today. PVR 132ml's. We discussed potential causes for lower urinary tract symptoms patient has been experiencing. We discussed overactive bladder verses incomplete bladder emptying. She otherwise denies incontinence, hematuria, dysuria, foul smelling urine, changes to urinary stream, flank pain, fever, and or chills. We discussed obtaining retroperitoneal ultrasound for further assessment evaluation. She otherwise offers no other issues or concerns at this time. [facility] Medical History (Reviewed 08/04/24 @ 10:32 by CLARISSA SnyderEN[facility] Hyperparathyroidism Hypercalcemia History of opioid abuse History of melanoma Vitamin D deficiency Pure hypercholesterolemia Obesity (BMI 30-39.9) Benign essential hypertension Acquired hypothyroidism Surgical History Hx of tonsillectomy History of delivery History of surgery Family History Father No problems noted. Mother Cancer Other Mental health problem Substance abuse Social History Housing: Apartment Alcohol intake: former Patient Tobacco Use Status: Former Tobacco user e-Cigarette/Vaping Use: Never Used Second Hand Smoke Exposure: Yes service: No Current occupational status: disabled Cognitive needs: No Hearing needs: No Vision needs: Yes Review of Systems Const All systems reviewed & are unremarkable except as noted in HPI and below Physical Exam Const General: cooperative, healthy appearing, comfortable, no acute distress, well developed, alert and awake Orientation/consciousness: patient oriented x3 Limitations: no limitations HEENT Head: Yes normal to inspection, Yes normocephalic and Yes atraumatic Ears: hearing grossly normal bilaterally Eyes General: appearance normal, both eyes and all related structures Neck Neck: Yes normal visual inspection and Yes trachea midline Chest Chest palpation & inspection: normal inspection of the chest Resp Effort & Inspection: normal respiratory effort and able to speak in complete sentences Cardio Rate: regular rate GI Inspection: Yes normal to inspection General: Yes no CVA tenderness Back/Spine/Pelvis Back: no CVA tenderness Skin General skin exam: no rashes or lesions noted Neuro General: patient oriented x3 Extrem General: Yes normal to inspection Psych Appearance: grossly normal and well kempt Mental Status: mental status grossly normal Speech and movement: Normal speech and movement present and Clear speech present Affect: normal affect Attitude: cooperative Thought process: Normal thought process present Thought content: Normal thought content present Insight: Fair insight present (Psych) Judgement: Fair judgement present (Psych) Office Procedures Post Void Residual Post Residual Void Post Void Residual (PVR): 132 [id number] Void Residual by ultrasound Results AMB Urinalysis, Automated UA Leukoctes 70 Rizwana/uL Last Edit by Charbel Tello on 08/04/24 10:03 UA Nitrite Last Edit by Vijayyce Nereidass on 08/04/24 10:03 UA Urobilinogen 0.2 mg/dL Last Edit by Cassiyde Elisha on 08/04/24 10:03 UA Protein 0 mg/dL Last Edit by Vijayyce Bress on 08/04/24 10:03 UA pH 6.0 Last Edit by Vijayyce Nereidass on 08/04/24 10:03 UA Blood 0 Justin/uL Last Edit by Vijayyce Elisha on 08/04/24 10:03 UA Specific [place] 1.015 Last Edit by Vijayyce Elisha on 08/04/24 10:03 UA Ketone Last Edit by Vijayycalexandra Tello on 08/04/24 10:03 UA Bilirubin 0 mg/dL Last Edit by Charbel Tello on 08/04/24 10:03 UA Glucose 0 mg/dL Last Edit by Charbel Tello on 08/04/24 10:03 Results Reviewed Results Reviewed: Laboratory Last Values Urine pH (Auto) 6.0 08/04/24 10:02 Specific [place] (Auto) 1.015 08/04/24 10:02 Urine Protein (Auto) 0 mg/dL 08/04/24 10:02 Glucose (UA)(Auto) 0 mg/dL 08/04/24 10:02 Urine Blood (Auto) 0 Justin/uL 08/04/24 10:02 Urine Bilirubin (Auto) 0 mg/dL 08/04/24 10:02 Urine Urobilinogen (Auto) 0.2 mg/dL 08/04/24 10:02 Leukocyte Esterase (Auto) 70 Rizwana/uL 08/04/24 10:02 Assessment & Plan Assessment & Plan (1) Nocturia: Code(s): R35.1 - Nocturia Category: Medical (2) Urinary urgency: Code(s): R39.15 - Urgency of urination Category: Medical (3) Urinary frequency: Code(s): R35.0 - Frequency of micturition Category: Medical (4) Incomplete bladder emptying: Code(s): R33.9 - Retention of urine, unspecified Category: Medical Plan In office urinalysis results reviewed with the patient today; as noted above. PVR 132 mL. Discussed potential causes for lower urinary tract symptoms patient was experiencing. Discussed bladder triggers/irritants. Discussed importance of limiting fluids 2-3 hours prior to bed to decrease episodes of nocturia. Will obtain retroperitoneal ultrasound for further assessment evaluation. Start terazosin as discussed and prescribed. Discussed attempting to double void to assist with incomplete bladder emptying. Discussed potential near future in office cystoscopy and or urodynamics for further assessment evaluation. Follow-up in 1-3 months with imaging and PVR; or sooner with any issues, concerns, and or questions. Orders: Orders US retroperitoneal comp Today R33.9 - Retention of urine, unspecified, R35.0 - Frequency of micturition, R35.1 - Nocturia, R39.15 - Urgency of urination AMB Urinalysis Automated Today Z13.9 - Encounter for screening, unspecified AMB Post Void Residual by ultrasound Today N32.81 - Overactive bladder Medications: New terazosin 1 mg PO BEDTIME 30 days 30 caps 3RF R39.12 - Poor urinary stream Patient Instructions: The patient had an opportunity to ask questions regarding the treatment plan. All questions were answered. Physical exam, labs, and imaging were discussed and reviewed in detail. As well as risks, benefits, and discussion of treatment choices. No major barriers to understanding were identified. The patient expressed understanding and agreement with the above treatment plan. The patient was made aware they should contact our office by phone for worsening of their current condition, the appearance of new symptoms, or with any questions or concerns. Compliance is encouraged with any medications and follow up testing that is ordered. It is a privilege to be allowed the opportunity to participate in? your urological care.? Again, if you have any questions or concerns If you have any questions or concerns please do not hesitate to contact me. The office is [phone]. This note is constructed using voice recognition software. While every effort has been made to ensure accuracy node js developer errors may have been included. Yours sincerely, MAURILIO Snyder Coding Level of Care Code New Pt Level 4 (91183) Diagnoses Nocturia R35.1 Urinary urgency R39.15 Urinary frequency R35.0 Incomplete bladder emptying R33.9 CPT Codes Post Residual Void - PVR CPT Code: 96759-[id number] Void Residual by ultrasound ([id number])
== END 2024-08-04 09:59 | disposition home or self-care (01) ==
PROVIDERS: PCP Internal Medicine; Visit Provider Nurse Practitioner Family
DX: R35.1 Nocturia (principal); R39.15 Urgency of urination; R35.0 Frequency of micturition; R33.9 Retention of urine, unspecified; Z13.9 Encounter for screening, unspecified
CPT/HCPCS: 99204

== ENCOUNTER → 2024-08-04 08:39 | Outpatient (BNVA) | payer OTHER, SELFPAY | PROVIDERS: PCP Internal Medicine; Visit Provider Nurse Practitioner Family | DX: R35.1 Nocturia (principal); R39.15 Urgency of urination; R35.0 Frequency of micturition; R33.9 Retention of urine, unspecified; N32.81 Overactive bladder; R39.12 Poor urinary stream | CPT/HCPCS: 51798; 81003; 99202 ==

== ENCOUNTER 2024-10-12 09:43 | Outpatient (AMB) | payer OTHER, SELFPAY ==
[2024-10-12 09:58] VITALS: BP 120/60; PULSE 61; O2SAT 97; BMI 36.2
--- NOTE | 2024-10-12 09:58 | A.OFFPC_ITS ---
Vital Signs 10/12/24 09:58 Height 4 ft 11 in Weight 179 lb 4 oz BMI 36.2 BP 120/60 Blood Pressure Location Lt brachial Position Sitting Pulse 61 Pulse Source Pulse Oximeter Pulse Oximetry (%) 97 Oxygen Delivery Method Room Air Intake Visit Reasons: 4 Months f/u Coremaking Machine Operator Required: No Accompanied by: Self / Same As Patient Allergies vancomycin [VANCOMYCIN] Allergy (Intermediate, Verified 10/12/24 10:33) SWELLING levofloxacin [From Levaquin] Allergy (Unknown, Verified 10/12/24 10:33) RASH Medication List - Last Reconciled 10/12/24 by Steven Dejesus MD cholecalciferol (vitamin D3) 50 mcg PO DAILY levothyroxine 125 mcg PO QAM meclizine 25 mg PO BID PRN terazosin 1 mg PO BEDTIME 30 days triamcinolone acetonide (Nasacort) 2 sprays intranasal DAILY PRN valsartan 160 mg PO BID Tobacco use date assessed: 10/12/24 Dental Screening Dental Screen Date: 10/12/24 Did you have a dental visit in the last 12 months?: No Did you have a dental problem in the last 6 months where you did not have access to dental care?: No Was dental information given to patient?: No HPI 4 Months f/u HPI Details Patient comes in today for her follow up visit Reports that she has been experiencing increased headaches often lately and is wondering if her calcium level is high again and causing her increased headaches She denies any dizziness Adds that she has been experiencing frequent nasal congestion and runny nose lately and is concerned that she may be coming down with a sinus infection She denies any fever or sore throat Denies any chest pains, no increased SOB and denies any increased cough or chest congestion No nausea/vomiting, no abdominal pain No change in bowel habits noted She was not able to get her follow up labs done prior to her office visit today [facility] Medical History (Updated 10/13/24 @ 04:25 by Steven Dejesus MD) Allergic rhinitis Primary osteoarthritis of knees, bilateral Primary hyperparathyroidism Hypercalcemia History of opioid abuse History of melanoma Vitamin D deficiency Pure hypercholesterolemia Obesity (BMI 30-39.9) Benign essential hypertension Acquired hypothyroidism Surgical History Hx of tonsillectomy History of delivery History of surgery Family History Father No problems noted. Mother Cancer Other Mental health problem Substance abuse Social History Housing: Apartment Alcohol intake: former Patient Tobacco Use Status: Former Tobacco user e-Cigarette/Vaping Use: Never Used Second Hand Smoke Exposure: Yes service: No Current occupational status: disabled Cognitive needs: No Hearing needs: No Vision needs: Yes Questionnaire PHQ-9 Over the last 2 weeks, how often have you been bothered by any of the following problems? 1. Little interest or pleasure in doing things: not at all 2. Feeling down, depressed, or hopeless: not at all 3. Trouble falling or staying asleep, or sleeping too much: not at all 4. Feeling tired or having little energy: not at all 5. Poor appetite or overeating: not at all 6. Feeling bad about yourself - or that you are a failure or have let yourself o r your family down: not at all 7. Trouble concentrating on things, such as reading the newspaper or watching television: not at all 8. Moving or speaking so slowly that other people could have noticed. Or the opposite - being so fidgety or restless that you have been moving around a lot more than usual: not at all 9. Thoughts that you would be better off or of hurting yourself in some way: not at all Total score: 0 Depression Screening Interpretation: Negative Depression Screening Done: Yes 99533 - PHQ-9 Billing: Yes Source: Developed by Drs. Cristi Fuentes, Frances Ayon, Chaparro torres nd colleagues, with an educational jimmy from [employer]. Thrive Questionnaire Date Thrive assessed: 10/12/24 I am a: Patient What is your living situation today?: I have a steady place to live Within the past 12 months, did the food you bought not last and you didn't have the money to get more?: Never true Within the past 12 months, did you worry whether your food would run out before you got money to buy more?: Never true Do you have trouble paying for medicines?: No Do you have trouble getting transportation to medical appointments?: No Do you have trouble paying your heating and electricity bill?: No Do you have trouble taking care of your child, family member or friend?: No Do you have trouble with day-to-day activities such as bathing, preparing meals, shopping, managing finances, etc.?: No Are you currently unemployed and looking for a job?: No Are you interested in more education?: No Please select the resources that you would like help with: None Currently or been in a relationship where the following occur: No concerns reported THRIVE Score: 0 AUDIT C Alcohol Use Questionnaire (AUDIT-C) 1. How often do you have a drink containing alcohol?: Never 3. How often do you have six or more drinks on one occasion?: Never Total Score: 0 Score Reviewed/Action Taken: Yes ROGER-7 AMB Questionnaire ROGER-7 Date ROGER - 7 assessed: 10/12/24 Feeling nervous, anxious, or on edge: 0 = Not at all Not being able to stop or control worryin = Not at all Worrying too much about different things: 0 = Not at all Trouble relaxin = Not at all Being so restless that it is hard to sit still: 0 = Not at all Becoming easily annoyed or irritable: 0 = Not at all Feeling afraid as if something awful might happen: 0 = Not at all Total ROGER-7 score (0-4 normal; 5-9 mild; 10-14 moderate; 15-21 severe): 0 Source: Developed by Drs. Cristi Fuentes, Frances Ayon, Chaparro Harrison and colleagues, with an educational jimmy from [employer]. Review of Systems Const Denies chills, Denies fatigue, Denies fever(s) and Reports headache(s) (recurrent lately) Eyes Denies blurry vision ENT Denies dysphagia, Denies dizziness, Denies otalgia, Reports headache(s) (recurrent lately), Reports nasal congestion, Reports nasal discharge, Denies neck pain, Denies odynophagia and Denies sore throat Card Denies chest pain, Denies palpitations and Denies dyspnea Resp Denies chest congestion, Denies cough and Denies dyspnea GI Denies abdominal pain, Denies constipation, Denies dysphagia, Denies heartburn, Denies diarrhea, Denies nausea, Denies odynophagia and Denies vomiting Denies difficulty voiding, Reports nocturia, Denies dysuria, Reports urinary incontinence (rarely, mostly urge incontinence) and Denies urinary urgency Musc Denies back pain, Reports arthralgias (over both knees; in the right shoulder (on and off)) and Denies neck pain Skin/Breast Denies rash Neuro Denies dizziness and Reports headache(s) (recurrent lately) Psych Reports anxiety Endo Denies fatigue and Denies palpitations Physical exam (Primary Care) Vital Signs: Last Vital Signs Pulse 61 10/12/24 09:58 BP 120/60 10/12/24 09:58 Pulse Ox 97 10/12/24 09:58 Oxygen Delivery Method Room Air 10/12/24 09:58 BMI result Body Mass Index 36.2 Tobacco/Smoking Status: Tobacco use Status Tobacco use date assessed 10/12/24 10/12/24 10:03 Patient Tobacco Use Status Former Tobacco user 10/12/24 10:03 e-Cigarette/Vaping Use Never Used 10/12/24 10:03 PHQ-9: PHQ-9 Score PHQ-9: Total score 0 10/12/24 12:34 Depression Screening Interpretation: Negative Thrive Assessment: Date of Thrive Assessment Date Thrive assessed 10/12/24 10/12/24 10:03 Currently or been in a relationship where the following occur: No concerns reported Const General: no acute distress and alert HENMT Ears: TM's normal bilaterally and EAC's normal Throat: Yes posterior oropharynx normal and Yes tonsils normal (no TP congestion noted) Neck Neck: Yes supple and No lymphadenopathy Thyroid: Thyroid normal Resp Auscultation: clear to auscultation bilaterally, no rales and no wheezes Cardio Rate: regular rate Rhythm: regular rhythm Heart sounds: no murmurs GI Palpation (GI): Soft to palpation and nontender Auscultation: normal bowel sounds General: Yes no CVA tenderness Back/Spine/Pelvis Back: no CVA tenderness Thoracic/Lumbar Spine: No lumbar spinal tenderness Skin Rashes: no rashes Extrem General: Yes no clubbing, cyanosis or edema Right lower extremity: knee Details: tenderness Location: of the pre-patellar area and of the infrapatellar area; no swelling Left lower extremity: knee Details: tenderness Location: of the pre-patellar area and of the infrapatellar area; no swelling Coding Level of Care Code Est Pt Level 4 (54626) Diagnoses Hypercalcemia E83.52 Primary hyperparathyroidism E21.0 Pure hypercholesterolemia E78.00 Benign essential hypertension I10 Acquired hypothyroidism E03.9 Vitamin D deficiency E55.9 Allergic rhinitis, unspecified seasonality, unspecified trigger J30.9 Allergic rhinitis trigger: unspecified Allergic rhinitis seasonality: unspecified Primary osteoarthritis of knees, bilateral M17.0 Primary osteoarthritis of hands, bilateral M19.041; M19.042 Overactive bladder N32.81 History of melanoma Z85.820 History of opioid abuse F11.11 Anxiety F41.9 Obesity (BMI 30-39.9) E66.9 Additional Codes PHQ-9 - 12753 - PHQ-9 Billing: Yes ([id number]) Assessment & Plan Assessment & Plan (1) Hypercalcemia: Code(s): E83.52 - Hypercalcemia Category: Medical Plan: Patient's serum calcium level was elevated at 11.2 mg/dL when last checked in May 2024; she was not able to get her follow-up labs done prior to visit today This is most likely due to her primary hyperparathyroidism She was following up with endocrinology previously but was advised that as she has not had any current acute or concerning symptoms (kidney stones on renal US or osteoporosis on her recent BMD), she does not meet criteria for surgical exploration and have recommended that she just continue with routine follow up with her PCP and have her serum calcium level monitored regularly every 6 months or so, and to refer her back to endocrinology only if her serum calcium level goes up to over 11.2 or she becomes symptomatic Will have patient go and get follow-up labs done as soon as she leaves the office today following her office visit (2) Primary hyperparathyroidism: Code(s): E21.0 - Primary hyperparathyroidism Category: Medical Plan: Patient was seen by endocrinology in late 2022 and was advised that she did not meet criteria for surgical exploration of her primary hyperparathyroidism, and have recommended that she just continue to monitor her labs through her PCP and be referred back only when her serum calcium level goes back up to over 11.2 or she becomes symptomatic As she has been complaining of increasing headaches lately and is concerned about her serum calcium level and hyperparathyroid condition, she is requesting to be referred back to endocrinology for reassessment - referral to endocrinology done (3) Pure hypercholesterolemia: Code(s): E78.00 - Pure hypercholesterolemia, unspecified Category: Medical Plan: Patient was not able to get her follow-up labs done prior to her visit today - will send her to the lab to get these done as soon as she leaves the office following her appointment Reinforced low-cholesterol diet Will recheck her labs in fasting lipids again in 4 months for follow-up (4) Benign essential hypertension: Code(s): I10 - Essential (primary) hypertension Category: Medical Plan: Reinforced low sodum diet - goal is systolic BP of 120 to 130 mm or less Continue Valsartan 160 mg BID Patient was also previously started additionally on Amlodipine 2.5 mg QD but she ran out of this a few months later and could not get her pharmacy to refill the Rx immediately Patient noticed then that she actually felt better being off Amlodipine and that her ankles and feet were not as swollen since she came off the Rx Her BP log at the time showed that her systolic BP ranges from 97 to 133 mm at the highest and diastolic BP ranging from 63 to 79 mm She was kept OFF Amlodipine as her blood pressure appears to be doing well without it and she appears to be doing well since She is reminded to continue monitoring her blood pressure regularly (5) Acquired hypothyroidism: Code(s): E03.9 - Hypothyroidism, unspecified Category: Medical Plan: Her TFTs back in May 2024 were within normal limits Continue Levothyroxine 125 mcg QD Will recheck her TFTs again in 4 months for follow up (6) Vitamin D deficiency: Code(s): E55.9 - Vitamin D deficiency, unspecified Category: Medical Plan: Continue Vitamin D3 2000 units QD (7) Allergic rhinitis: Code(s): J30.9 - Allergic rhinitis, unspecified Category: Medical Qualifiers: Allergic rhinitis trigger: unspecified Allergic rhinitis seasonality: unspecified Qualified Code(s): J30.9 - Allergic rhinitis, unspecified Plan: Discussed with patient that her recent nasal congestion and symptoms are likely due to a combination of the cold dry air in the winter as well as possible indoor allergens Will go ahead and start her on Nasacort nasal spray 55 mcg 2 sprays into each nostril QD PRN (8) Primary osteoarthritis of knees, bilateral: Code(s): M17.0 - Bilateral primary osteoarthritis of knee Category: Medical Plan: X-rays of both knees done back in January 2023 revealed (+) mild degenerative changes bilaterally Will consider referring her to orthopedics if her knee symptoms progress (9) Primary osteoarthritis of hands, bilateral: Code(s): M19.041 - Primary osteoarthritis, right hand; M19.042 - Primary osteoarthritis, left hand Category: Medical Plan: X-rays of both hands done in February 2018 showed (+) mild arthritis changes at the DIP joint of the 5th fingers of both hands, with no other abnormalities noted Patient is encouraged to continue with hand and finger exercises regularly to help manage her symptoms (10) Overactive bladder: Code(s): N32.81 - Overactive bladder Category: Medical Plan: Patient was started on a trial Detrol LA 4 mg Q HS last year as she states that her trips to the bathroom frequently interrupts her sleep at night and she often feels very tired, likely from lack of sleep States that the Rx did not really help too much so she stopped taking Detrol a few months later She was then referred to urology for further management and has been started instead on Terazosin 1 mg Q HS Follow up with urology as scheduled (11) History of melanoma: Code(s): Z85.820 - Personal history of malignant melanoma of skin Category: Medical Plan: Follow up with [facility] as scheduled for continuing surveillance (12) History of opioid abuse: Code(s): F11.11 - Opioid abuse, in remission Category: Medical Plan: She used to take Suboxone but was able to come off this a couple of years ago States that she has been clean for years now with no cravings or relapse (13) Anxiety: Code(s): F41.9 - Anxiety disorder, unspecified Category: Medical Plan: She used to take Lorazepam but states that she has been doing well OFF of it for several months with no flare ups of her anxiety (14) Obesity (BMI 30-39.9): Code(s): E66.9 - Obesity, unspecified Category: Medical Plan: Reinforced diet/exercise as tolerated/lose weight Plan Follow up in 4 months Orders: Orders Comprehensive [place]. Panel Fast 4 Months E78.00 - Pure hypercholesterolemia, unspecified, E83.52 - Hypercalcemia UA CC w/rflx Micro + Cult 4 Months E83.52 - Hypercalcemia, R30.0 - Dysuria Calcium, Ionized 4 Months E83.52 - Hypercalcemia Complete Blood Count Auto Diff 4 Months D64.9 - Anemia, unspecified, E83.52 - Hypercalcemia Vitamin D 25-OH Total 4 Months E55.9 - Vitamin D deficiency, unspecified, E83.52 - Hypercalcemia Parathyroid Hormone Intact 4 Months E83.52 - Hypercalcemia Lipid Panel 4 Months E78.00 - Pure hypercholesterolemia, unspecified, E83.52 - Hypercalcemia Thyroid Stimulating Hormone 4 Months E03.9 - Hypothyroidism, unspecified Free T4 (Free Thyroxine) 4 Months E03.9 - Hypothyroidism, unspecified Referrals Endocrinology Referral E21.3 - Hyperparathyroidism, unspecified, E83.52 - Hypercalcemia Medications: New triamcinolone acetonide (Nasacort) administer into each nostril 2 sprays intranasal DAILY PRN 16.9 mL 3RF nasal congestion
== END 2024-10-12 10:42 | disposition home or self-care (01) ==
PROVIDERS: PCP Internal Medicine; Visit Provider Internal Medicine
DX: E21.0 Primary hyperparathyroidism (principal); E78.00 Pure hypercholesterolemia, unspecified; I10 Essential (primary) hypertension; E03.9 Hypothyroidism, unspecified; E55.9 Vitamin D deficiency, unspecified; J30.9 Allergic rhinitis, unspecified; M17.0 Bilateral primary osteoarthritis of knee; M19.041 Primary osteoarthritis, right hand; M19.042 Primary osteoarthritis, left hand; N32.81 Overactive bladder; Z85.820 Personal history of malignant melanoma of skin; F11.11 Opioid abuse, in remission; F41.9 Anxiety disorder, unspecified; E66.9 Obesity, unspecified

== ENCOUNTER 2024-10-12 09:43 | Outpatient (REF) | payer OTHER, SELFPAY ==
[2024-10-12 11:17] LABS: MANUAL DIFF FLAG NO
[2024-10-12 12:29] LABS: Basophils Percent Auto 0.3 % (0-2); Eosinophils Absolute Auto 0.1 X10*3/uL (0.0-0.4); Eosinophils Percent Auto 1.6 % (0-4); Hematocrit 37.8 % (37.0-47.0); Hemoglobin 12.2 g/dl (12.0-16.0); Imm Gran Abs Auto 0.03 X10*3/uL (0.00-0.03); Imm Gran Pct Auto 0.4 % (0.0-0.4); Lymphocytes Absolute Auto 1.6 X10*3/uL (1.2-4.9); Lymphocytes Percent Auto 21.4 % (20-40); Mean Corpuscular HGB Conc 32.3 g/dl (31.0-35.0); Mean Corpuscular Hemoglobin 29.4 pg (27.0-33.0); Mean Corpuscular Volume 91.1 fL (80.0-98.0); Mean Platelet Volume 9.9 fL (9.4-12.3); Monocytes Absolute Auto 0.6 X10*3/uL (0.1-1.2); Monocytes Percent Auto 7.3 % (2-11); Neutrophils Absolute Auto 5.3 x10*3/uL (2.0-8.3); Platelet Count 357 X10*3/uL (160-400); Red Blood Count 4.15 X10*6/uL (4.20-5.50); Red Cell Distribution Width 12.3 % (11.0-16.0); White Blood Count 7.6 X10*3/uL (4.8-10.8)
[2024-10-12 12:40] LABS: Appearance Urine Clear; Color Urine Yellow; Glucose Urine UA Negative (Negative); Leukocyte Esterase Urine Negative (Negative); Nitrite Urine Negative (Negative); PH 5.5 (5.0-9.0); Urine Blood Negative (Negative); Urine Ketones Negative (Negative); Urine Protein Negative (Neg-Trace)
[2024-10-12 13:45] LABS: Alanine Aminotransferase 16 U/L (0-31); Albumin Level 4.5 g/dL (3.5-5.0); Alkaline Phosphatase 114 U/L (39-117); Anion Gap 8 (12-20); Aspartate Amino Transferase 26 U/L (5-31); Bilirubin Total 0.3 mg/dL (0.0-1.0); Blood Urea Nitrogen 23 mg/dL (9-16); Calcium 11.1 mg/dL (8.4-10.2); Carbon Dioxide 24 mmol/L (22-29); Chloride 111 mmol/L (96-108); Cholesterol 191 mg/dL (<200); Estimated Glomerular Filt Rate > 60; Glucose Fasting 82 mg/dL (60-99); HDL Cholesterol 58 mg/dL (>40); LDL Cholesterol Calculated 116 mg/dL (<100); Potassium 4.2 mmol/L (3.3-5.1); Sodium 139 mmol/L (135-145); Total Protein 8.1 g/dL (6.5-8.0); Triglycerides 87 mg/dL (<150)
[2024-10-12 13:50] LABS: Free T4 (Free Thyroxine) 1.39 ng/dL (0.71-1.85); Thyroid Stimulating Hormone 0.34 uIU/mL (0.32-4.0); Vitamin D 25-OH Total 43.1 ng/mL (>30)
[2024-10-14 11:13] LABS: Calcium, Ionized 5.8 mg/dL (4.7-5.5)
== END 2024-10-12 09:44 | disposition home or self-care (01) ==
LOC: HO.LAB 09:43
PROVIDERS: PCP Internal Medicine; Visit Provider Internal Medicine
DX: E83.52 Hypercalcemia (principal); D64.9 Anemia, unspecified; E78.00 Pure hypercholesterolemia, unspecified; E03.9 Hypothyroidism, unspecified; R30.0 Dysuria; I10 Essential (primary) hypertension; J30.9 Allergic rhinitis, unspecified; M17.0 Bilateral primary osteoarthritis of knee; M19.041 Primary osteoarthritis, right hand; M19.042 Primary osteoarthritis, left hand; N32.81 Overactive bladder; F11.11 Opioid abuse, in remission; F41.9 Anxiety disorder, unspecified; E66.9 Obesity, unspecified; Z85.820 Personal history of malignant melanoma of skin
CPT/HCPCS: 36415; 80053; 80061; 81003; 82306; 82330; 84439; 84443; 85025; 96127; 99212

== ENCOUNTER 2024-10-31 10:43 | Outpatient (REF) | payer OTHER, SELFPAY | END 2024-10-31 10:44 | disposition home or self-care (01) | LOC: HO.US 10:43 | PROVIDERS: PCP Internal Medicine; Visit Provider Nurse Practitioner Family | DX: R35.1 Nocturia (principal); R33.9 Retention of urine, unspecified; R36.0 Urethral discharge without blood; R39.15 Urgency of urination | CPT/HCPCS: 76770 ==

== ENCOUNTER → 2024-10-31 10:57 | Outpatient (BNV) | payer OTHER, SELFPAY | PROVIDERS: PCP Internal Medicine; Visit Provider Radiology Vascular & Interventional Radiology | DX: R33.9 Retention of urine, unspecified (principal) | CPT/HCPCS: 76770 ==

== ENCOUNTER 2024-11-02 10:26 | Outpatient (AMB) | payer OTHER, SELFPAY ==
--- NOTE | 2024-11-02 10:45 | A.OFFVIS_ITS ---
Intake Visit Reasons: 3m/US(pending 10/31) Intake Note: Patient is present for Ultrasound/PVR Follow Up Urology Med: Terazosin Antibiotic Allergy: Vancomycin, Levofloxacin Blood Thinner: None Last PVR: 132ML Todays PVR: 0ml Patient states that she has started the Terazosin but states that it has been ineffective for her she feels no improvement. Increased Frequency Corn Shredder Required: No Allergies vancomycin [VANCOMYCIN] Allergy (Intermediate, Verified 11/02/24 11:04) SWELLING levofloxacin [From Levaquin] Allergy (Unknown, Verified 11/02/24 11:04) RASH Medication List - Last Reconciled 11/02/24 by MAURILIO Snyder cholecalciferol (vitamin D3) 50 mcg PO DAILY levothyroxine 125 mcg PO QAM meclizine 25 mg PO BID PRN terazosin 1 mg PO BEDTIME 30 days triamcinolone acetonide (Nasacort) 2 sprays intranasal DAILY PRN valsartan 160 mg PO BID HPI Comments Details: Lynette is a very pleasant 63-year-old female patient of Dr. Dejesus. She has a past medical history of hyperparathyroidism, hypercalcemia, melanoma, vitamin-D deficiency, hypercholesteremia, and hypertension. She presents to the office today for follow-up. of her ongoing lower urinary tract symptoms. Of note, patient was seen approximately 3 months ago at which time a retroperitoneal ultrasound was ordered for further assessment evaluation and patient was started on low-dose terazosin as postvoid residual was noted to be slightly elevated at 140 mL. Retroperitoneal ultrasound 11/15 notes bilateral kidneys are normal in size and echotexture. No hydronephrosis or renal calculi noted bilaterally. The urinary bladder is unremarkable. Normal kidneys. She reports no improvement in episodes of lower urinary tract symptoms on terazosin as prescribed. She reports her main concern is increased episodes of nocturia up to 5 times per night. She also report episodes of urinary urgency and frequency however feels these symptoms are somewhat manageable. In office urinalysis results reviewed with the patient today. PVR 0 mL. Patient previously trialed tolterodine with PCP and did not find this helpful. We discussed further treatment options and risks and benefits of these treatment options. She denies incontinence, hematuria, dysuria, foul smelling urine, changes to urinary stream, flank pain, fever, and or chills. She otherwise offers no other issues or concerns at this time. [facility] Medical History Allergic rhinitis Primary osteoarthritis of knees, bilateral Primary hyperparathyroidism Hypercalcemia History of opioid abuse History of melanoma Vitamin D deficiency Pure hypercholesterolemia Obesity (BMI 30-39.9) Benign essential hypertension Acquired hypothyroidism Surgical History Hx of tonsillectomy History of delivery History of surgery Family History Father No problems noted. Mother Cancer Other Mental health problem Substance abuse Social History Housing: Apartment Alcohol intake: former Patient Tobacco Use Status: Former Tobacco user e-Cigarette/Vaping Use: Never Used Second Hand Smoke Exposure: Yes service: No Current occupational status: disabled Cognitive needs: No Hearing needs: No Vision needs: Yes Review of Systems Const All systems reviewed & are unremarkable except as noted in HPI and below Physical Exam Const General: cooperative, healthy appearing, comfortable, no acute distress, well developed, alert and awake Orientation/consciousness: patient oriented x3 Limitations: no limitations HEENT Head: Yes normal to inspection, Yes normocephalic and Yes atraumatic Ears: hearing grossly normal bilaterally Eyes General: appearance normal, both eyes and all related structures Neck Neck: Yes normal visual inspection and Yes trachea midline Chest Chest palpation & inspection: normal inspection of the chest Resp Effort & Inspection: normal respiratory effort and able to speak in complete sentences Cardio Rate: regular rate GI Inspection: Yes normal to inspection General: Yes no CVA tenderness Back/Spine/Pelvis Back: no CVA tenderness Skin General skin exam: no rashes or lesions noted Neuro General: patient oriented x3 Extrem General: Yes normal to inspection Psych Appearance: grossly normal and well kempt Mental Status: mental status grossly normal Speech and movement: Normal speech and movement present and Clear speech present Affect: normal affect Attitude: cooperative Thought process: Normal thought process present Thought content: Normal thought content present Insight: Fair insight present (Psych) Judgement: Fair judgement present (Psych) Office Procedures Post Void Residual Post Residual Void Post Void Residual (PVR): 0 [id number] Void Residual by ultrasound Results AMB Urinalysis, Automated UA Leukoctes 0 Rizwana/uL Last Edit by Francy Nazario [facility] on 11/02/24 11:06 UA Nitrite Negative Last Edit by Francy Nazario, [facility] on 11/02/24 11:06 UA Urobilinogen 0.2 mg/dL Last Edit by Francy Nazario A on 11/02/24 11:0 6 UA Protein 0 mg/dL Last Edit by Francy Nazario A on 11/02/24 11:06 UA pH 5.5 Last Edit by Francy Nazario, A on 11/02/24 11:06 UA Blood 0 Justin/uL Last Edit by Francy Nazario [facility] on 11/02/24 11:06 UA Specific [place] 1.015 Last Edit by Francy Nazario [facility] on 11/02/24 11: 06 UA Ketone Negative Last Edit by Francy Nazario [facility] on 11/02/24 11:06 UA Bilirubin 0 mg/dL Last Edit by Francy Nazario [facility] on 11/02/24 11:06 UA Glucose 0 mg/dL Last Edit by Francy Nazario [facility] on 11/02/24 11:06 Results Reviewed Results Reviewed: Date of Service: 10/31/24 Procedure(s): US retroperitoneal comp Findings: Right kidney normal size and echotexture, 9.9 cm length. Left kidney normal size and echotexture, 9.7 cm length. No hydronephrosis of either kidney. Normal color Doppler. Urinary bladder is unremarkable. Prevoid volume 151 mL. Postvoid volume 15 mL. Bilateral ureteral jets are visualized. IMPRESSION: 1. Normal kidneys. Assessment & Plan Assessment & Plan (1) Urinary urgency: Code(s): R39.15 - Urgency of urination Category: Medical (2) Urinary frequency: Code(s): R35.0 - Frequency of micturition Category: Medical (3) Overactive bladder: Code(s): N32.81 - Overactive bladder Category: Medical Plan In office urinalysis results with the patient today; as noted above. PVR 0 mL. Stop terazosin. Start VESIcare as discussed and prescribed. Recent retroperitoneal ultrasound results reviewed with the patient today; as noted above. We discussed potential for near future sleep study for further assessment evaluation. We discussed potential for near future in office cystoscopy and or urodynamics for further assessment evaluation. We discussed importance of limiting fluids 2-3 hours prior to bed to decrease episodes of nocturia. We discussed bladder triggers/irritants. Follow-up in 1-3 months with PVR; or sooner with any issues, concerns, and or questions. Orders: Orders AMB Urinalysis Automated Today Z13.9 - Encounter for screening, unspecified AMB Post Void Residual by ultrasound Today R33.9 - Retention of urine, unspecified Medications: New solifenacin (Vesicare) 5 mg PO DAILY 30 days 30 tabs 3RF Discontinued terazosin Discontinued Reason: Patient Completed Course 1 mg PO BEDTIME 30 days 30 caps 3RF R39.12 - Poor urinary stream Patient Instructions: The patient had an opportunity to ask questions regarding the treatment plan. All questions were answered. Physical exam, labs, and imaging were discussed and reviewed in detail. As well as risks, benefits, and discussion of treatment choices. No major barriers to understanding were identified. The patient expressed understanding and agreement with the above treatment plan. The patient was made aware they should contact our office by phone for worsening of their current condition, the appearance of new symptoms, or with any questions or concerns. Compliance is encouraged with any medications and follow up testing that is ordered. It is a privilege to be allowed the opportunity to participate in? your urological care.? Again, if you have any questions or concerns If you have any questions or concerns please do not hesitate to contact me. The office is [phone]. This note is constructed using voice recognition software. While every effort has been made to ensure accuracy repairer maintenance building errors may have been included. Yours sincerely, MAURILIO Snyder Coding Level of Care Code Est Pt Level 4 (71710) Diagnoses Urinary urgency R39.15 Urinary frequency R35.0 Overactive bladder N32.81 CPT Codes Post Residual Void - PVR CPT Code: 61244-[id number] Void Residual by ultrasound ([id number])
== END 2024-11-02 11:16 | disposition home or self-care (01) ==
PROVIDERS: PCP Internal Medicine; Visit Provider Nurse Practitioner Family
DX: R39.15 Urgency of urination (principal); R35.0 Frequency of micturition; N32.81 Overactive bladder; Z13.9 Encounter for screening, unspecified
CPT/HCPCS: 99214

== ENCOUNTER → 2024-11-02 10:26 | Outpatient (BNVA) | payer OTHER, SELFPAY | PROVIDERS: PCP Internal Medicine; Visit Provider Nurse Practitioner Family | DX: R39.15 Urgency of urination (principal); R35.0 Frequency of micturition; N32.81 Overactive bladder | CPT/HCPCS: 51798; 81003; 99212 ==

== ENCOUNTER 2024-11-18 09:59 | Outpatient (AMB) | payer OTHER, SELFPAY ==
[2024-11-18 10:04] VITALS: BP 134/62; PULSE 57; O2SAT 98; BMI 37.0
--- NOTE | 2024-11-18 10:04 | A.OFFVIS_ITS ---
Vital Signs 11/18/24 10:04 Height 4 ft 11 in Weight 183 lb 6.793 oz BMI 37.0 BP 134/62 Blood Pressure Location Lt brachial Position Sitting Pulse 57 Pulse Source Pulse Oximeter Pulse Oximetry (%) 98 Oxygen Delivery Method Room Air Intake Visit Reasons: Hyperparathyroidism Intake Note: Patient present today for Hyperparathyroidism office visit. Supersonic Engineer Required: No Accompanied by: Self / Same As Patient Allergies vancomycin [VANCOMYCIN] Allergy (Intermediate, Verified 11/18/24 10:08) SWELLING levofloxacin [From Levaquin] Allergy (Unknown, Verified 11/18/24 10:08) RASH Medication List - Last Reconciled 11/18/24 by Brie Malik MD cholecalciferol (vitamin D3) 50 mcg PO DAILY levothyroxine 125 mcg PO QAM meclizine 25 mg PO BID PRN solifenacin (Vesicare) 5 mg PO DAILY 30 days triamcinolone acetonide (Nasacort) 2 sprays intranasal DAILY PRN valsartan 160 mg PO BID HPI Comments Details: 64-year-old female here today for follow up of primary hyperparathyroidism. Chart review shows she has had hypercalcemia at least since 2019. I do not see any normal calcium levels before that. Over the last year in 2023 her calcium has ranged anywhere from 11-11.2 mg/dL with albumin of 4.3-4.5 g per dL. Corrected calcium would be somewhere around 10.7 mg/dL. Most recent labs from 10/12/2024 show calcium of 11.1, with albumin of 4.5, corrected calcium would be around 10.6 mg/dL. However ionized calcium also elevated at 5.8. Vitamin-D of 43.1, normal kidney function. She was previously seeing Dr. Reese, last seen in 2022, at that time decision was made to monitor her hypercalcemia and primary hyperparathyroidism given she did not meet surgical criteria. No history of renal stones , renal ultrasound 11/01/2024 did not show any kidney stone No history of osteoporosis, bone density 06/18/2023 showed osteopenia of the lumbar spine with T-score of-1.6, normal forearm bone density with T-score of- 0.2. Normal bone density of the hip with left femoral neck T-score of-0.5, and left femur total T-score of 0.7. This was the patient's baseline examination. FRAX did not meet criteria for treatment. No more HCTZ for BP control, stopped 2022 Falls or fractures : none Biotin: no Reports headaches, palpitation, reports abd discomfort, acid reflux , some brain fog, reports intermittent dizziness, reports tiredness. No constipation. No calcium suppleemnts Vitamin D 2000 units No milk, upset stomach Cheese every other day, yogurt 3 times a week Significant medical history includes past stage 4 malignant melanoma with lymph node involvement treated in 2000, hypertension, and thyroid disorder, managed with current medications. Discontinuation of Hydrochlorothiazide was due to its impact on calcium levels. Physical exam General: sitting comfortably in no acute distress HEENT: normocephalic/atraumatic, moist oral mucosa Neck: supple, symmetrical, no thyromegaly , no dorsocervical or supraclavicular fat pads Cardiac: normal heart sounds Pulm: normal breath sounds B/L, no added breath sounds Abd: not distended, no tenderness Extremities: Mild left extremity swelling Neuro: AAO x3, Speech: normal, no facial droop, moving all 4 extremities Laboratory Tests 02/15/19 07/29/19 10/10/21 08:35 23:21 10:16 Creatinine Estimated GFR Calcium 10.4 H 10.4 H 11.4 H Ionized Calcium Albumin 4.4 4.6 25-OH Vitamin D Total 45.3 36.6 PTH Intact Calcium (PTH Intact) Ur 24 Hour Volume Ur Creatinine mg/dL Ur Creatinine 24 Hour Ur Calcium 24 Hr Calcium/Creat 24 Hr 01/21/22 02/07/22 09/17/22 07:05 19:09 11:49 Creatinine Estimated GFR Calcium 10.4 H D 10.2 10.2 Ionized Calcium Albumin 4.2 4.1 4.3 25-OH Vitamin D Total 35.9 PTH Intact 114 H 163 H Calcium (PTH Intact) 10.2 10.1 Ur 24 Hour Volume Ur Creatinine mg/dL Ur Creatinine 24 Hour Ur Calcium 24 Hr Calcium/Creat 24 Hr 09/19/22 11/27/22 01/26/23 15:26 09:54 09:12 Creatinine Estimated GFR Calcium 10.5 H 10.4 H Ionized Calcium 5.6 H Albumin 4.2 4.3 25-OH Vitamin D Total 34.4 45.3 PTH Intact 114 H Calcium (PTH Intact) 11.0 H Ur 24 Hour Volume Ur Creatinine mg/dL Ur Creatinine 24 Hour Ur Calcium 24 Hr Calcium/Creat 24 Hr 06/02/23 06/04/23 06/06/23 11:06 09:39 07:00 Creatinine 0.84 Estimated GFR > 60 Calcium 10.9 H 11.0 H Ionized Calcium Albumin 4.5 4.4 25-OH Vitamin D Total PTH Intact 106 H 90 H Calcium (PTH Intact) 10.7 H 10.7 H Ur 24 Hour Volume 3140 Ur Creatinine mg/dL 27.22 Ur Creatinine 24 Hour 0.9 L Ur Calcium 24 Hr 210 Calcium/Creat 24 Hr 239 10/02/23 06/16/24 10/12/24 10:19 07:40 11:09 Creatinine 0.79 Estimated GFR > 60 Calcium 11.0 H 11.2 H 11.1 H Ionized Calcium 5.8 H 5.8 H Albumin 4.3 4.5 4.5 25-OH Vitamin D Total 39.6 35.7 43.1 PTH Intact 106.9 H 129.5 H Calcium (PTH Intact) Ur 24 Hour Volume Ur Creatinine mg/dL Ur Creatinine 24 Hour Ur Calcium 24 Hr Calcium/Creat 24 Hr Fractional excretion of calcium based on labs from 06/06/2023:0.018 US RETROPERITONEAL LIMITED (RENAL ONLY) 06/18/23 CLINICAL INFORMATION: Hyperparathyroidism, unspecified. Rule out nephrolithiasis. COMPARISON: CT abdomen and pelvis 04/02/2010. TECHNIQUE: Real-time imaging of the kidneys. FINDINGS: RIGHT KIDNEY: 9.6 x 4.5 x 3.8 cm (SAG x AP x TRV). The kidney is normal in size, contour, and echogenicity. Renal cortical thickness is normal. No calculi or focal parenchymal lesions. No hydronephrosis. LEFT KIDNEY: 9.3 x 5.1 x 4.3 cm (SAG x AP x TRV). The kidney is normal in size, contour, and echogenicity. Renal cortical thickness is normal. No calculi or focal parenchymal lesions. No hydronephrosis. US/US renal BI IMPRESSION: Normal renal ultrasound. BONE DENSITOMETRY 06/18/23 CLINICAL INDICATION: Hyperparathyroidism, unspecified. COMPARISON: This is the patient's baseline examination. TECHNIQUE: Using a [employer] Software DXA System (software version: 13.1) manufactured by [employer], dual-energy x-ray absorptiometry was performed of the lumbar spine, left hip, and left forearm radius 33%. The images are of good technical quality. Summary results are attached. FINDINGS: LEFT FEMUR, NECK: BMD 0.969 g/cm2, Z-score 0.6, T-score -0.5, normal. LEFT FEMUR, TOTAL: BMD 1.100 g/cm2, Z-score 1.5, T-score 0.7, normal. AP SPINE L1-L2 (excluding L3 and L4): The data of L1-L4 has been changed to exclude the L3 and L4 vertebral bodies, because significant degenerative change at these levels may cause overestimation of lumbar spine density. BMD 0.974 g/cm2, Z-score -0.6, T-score -1.6, osteopenia. LEFT FOREARM RADIUS 33%: BMD 0.856 g/cm2, Z-score 0.9, T-score -0.2, normal. IDENTIFIED RISK FACTORS: Menopause, hyperparathyroidism, Thiazide. HISTORY OF FRACTURE: None listed. MEDICATIONS: Vitamin D. MM/XR DEXA appendicular skeleton IMPRESSION: 1. DIAGNOSIS: Osteopenia based on the lowest T-score value of -1.6 in the lumbar spine applying World Health Organization criteria. 2. 10-YEAR FRACTURE RISK PREDICTION, FRAX: Major osteoporotic fracture (clinical spine, forearm, hip or shoulder) 3.6%. Hip fracture 0.1%. [facility] Medical History Allergic rhinitis Primary osteoarthritis of knees, bilateral Primary hyperparathyroidism Hypercalcemia History of opioid abuse History of melanoma Vitamin D deficiency Pure hypercholesterolemia Obesity (BMI 30-39.9) Benign essential hypertension Acquired hypothyroidism Surgical History Hx of tonsillectomy History of delivery History of surgery Family History Father No problems noted. Mother Cancer Other Mental health problem Substance abuse Social History Housing: Apartment Alcohol intake: former Patient Tobacco Use Status: Former Tobacco user e-Cigarette/Vaping Use: Never Used Second Hand Smoke Exposure: Yes service: No Current occupational status: disabled Cognitive needs: No Hearing needs: No Vision needs: Yes Physical Exam Vital Signs: Last Vital Signs Pulse 57 11/18/24 10:04 BP 134/62 11/18/24 10:04 Pulse Ox 98 11/18/24 10:04 Oxygen Delivery Method Room Air 11/18/24 10:04 BMI result Body Mass Index 37.0 Assessment & Plan Assessment & Plan (1) Primary hyperparathyroidism: Code(s): E21.0 - Primary hyperparathyroidism Category: Medical Plan: 64-year-old female here today for follow up of primary hyperparathyroidism. Chart review shows she has had hypercalcemia at least since 2019. I do not see any normal calcium levels before that. Over the last year in 2023 her calcium has ranged anywhere from 11-11.2 mg/dL with albumin of 4.3-4.5 g per dL. Corrected calcium would be somewhere around 10.7 mg/dL. Most recent labs from 10/12/2024 show calcium of 11.1, with albumin of 4.5, corrected calcium would be around 10.6 mg/dL. However ionized calcium also elevated at 5.8. Vitamin-D of 43.1, normal kidney function. Over the past her given that her calcium levels have been around 11.1, 11.2, and she is having symptoms possibly from hypercalcemia, we can plan to have her evaluated for surgical management. She otherwise does not have any history of renal stones, normal renal ultrasound from October 2024, no history of osteoporosis,bone density 06/18/2023 showed osteopenia of the lumbar spine with T-score of-1.6, normal forearm bone density with T-score of-0.2. Normal bone density of the hip with left femoral neck T- score of-0.5, and left femur total T-score of 0.7. This was the patient's baseline examination. FRAX did not meet criteria for treatment. She had a 24 hour urine evaluation in May 2023, which did not show hypercalciuria, I will plan to repeat it this at the this time. Fractional excretion of calcium from that time was 0.018, which is not suggestive of FHH. Given it has not been 2 years to her last bone density, holding off on ordering this for now. I discussed with the patient the diagnosis of primary hyperparathyroidism and the resultant elevated calcium levels. I explained in detail the physiological role of parathyroid hormone and how its dysregulation leads to the clinical presentation observed. We discussed past management strategies and the progression to current surgical options given the rise in calcium levels and symptom onset. I underscored the necessity of a parathyroid scan and 24-hour urine collection as diagnostic steps to refine surgical planning. The potential surgical procedure, likely executed by Dr. Amina Oreilly, was explained, centering on its risks and benefits, emphasizing the surgeon's expertise to minimize complication rates. We covered dietary guidance ensuring calcium and vitamin D sufficiency to protect bone health and plans for a follow-up in six weeks to review the findings and determine final surgical direction. Plan: -ordered 24 hour urine calcium and creatinine as well as blood work to be repeated at the same time with calcium, albumin, ionized calcium, PTH, kidney function -ordered nuclear medicine parathyroid scan -follow up in 6 weeks to discuss results at which time we will likely consider surgical referral - Continue taking vitamin D 2000 units daily. - Maintain a daily intake of calcium-rich foods with 2 to 3 servings, such as yogurt, cheese, spinach, and almonds. Plan I spent 30 minutes in reviewing the record, seeing the patient and documenting in the medical record. Orders: Orders Calcium, 24 Hr Ur Today E21.0 - Primary hyperparathyroidism Creatinine, 24 Hr Group Today E21.0 - Primary hyperparathyroidism Parathyroid Hormone Intact Today E21.0 - Primary hyperparathyroidism Basic Metabolic Panel Today E21.0 - Primary hyperparathyroidism Albumin Level Today E21.0 - Primary hyperparathyroidism Calcium Today E21.0 - Primary hyperparathyroidism Calcium, Ionized Today E21.0 - Primary hyperparathyroidism Phosphorus Today E21.0 - Primary hyperparathyroidism NM parathyroid Today E21.0 - Primary hyperparathyroidism Patient Instructions: Do parathyroid scan, someone will call you to schedule this Do 24 hr urine collection and same day as you hand in the urine do blood work 24 hr urine collection instructions You have been asked to collect your urine for 24 hours to assess for calcium excretion. You must choose a 24 hour period of time when you will be home. The morning of the first day, DISCARD the FIRST morning void and then note the time. You will collect every single void from then on for 24 hours. For example, if you wake up at 6am and urinate, flush down that void. You will then collect every drop of urine all day and all night through 6am the following day. You will urinate one last time at 6am for the collection. The jug of urine must be kept in the refrigerator until you bring it to the lab. Continue vitamin d 2000 units daily Maintain calcium intake in diet 2-3 servings of calcium rich foods daily Coding Level of Care Code Est Pt Level 4 (27196) Diagnoses Primary hyperparathyroidism E21.0 Time Spent (min) 30
== END 2024-11-18 11:01 | disposition home or self-care (01) ==
PROVIDERS: PCP Internal Medicine; Visit Provider Student in an Organized Health Care Education/Training Program
DX: E21.0 Primary hyperparathyroidism (principal)
CPT/HCPCS: 99214

== ENCOUNTER → 2024-11-18 09:59 | Outpatient (BNVA) | payer OTHER, SELFPAY | PROVIDERS: PCP Internal Medicine; Visit Provider Student in an Organized Health Care Education/Training Program | DX: E21.0 Primary hyperparathyroidism (principal) | CPT/HCPCS: 99212 ==

== ENCOUNTER 2024-11-22 08:30 | Outpatient (REF) | payer OTHER, SELFPAY | END 2024-11-22 08:31 | disposition home or self-care (01) | LOC: HO.LAB 08:30 | PROVIDERS: PCP Internal Medicine; Visit Provider Student in an Organized Health Care Education/Training Program | DX: Z13.89 Encounter for screening for other disorder (principal) ==

== ENCOUNTER 2024-11-29 08:53 | Outpatient (REF) | payer OTHER, SELFPAY ==
[2024-11-29 10:30] LABS: Albumin Level 4.3 g/dL (3.5-5.0); Anion Gap 9 (12-20); Blood Urea Nitrogen 26 mg/dL (9-16); Calcium 10.3 mg/dL (8.4-10.2); Carbon Dioxide 23 mmol/L (22-29); Chloride 113 mmol/L (96-108); Estimated Glomerular Filt Rate > 60; Glucose Random 85 mg/dL (60-115); Potassium 4.5 mmol/L (3.3-5.1); Sodium 140 mmol/L (135-145)
[2024-11-29 10:41] LABS: Parathyroid Hormone Intact 163.8 pg/mL (8.7-77.1)
[2024-11-29 11:56] LABS: Creatinine, mg/dL 74.09
[2024-11-29 14:05] LABS: Creatinine, 24Hr Urine 1.1 G/Day (1.0-2.0); Total Volume 24 Hour Urine 1550 mL
[2024-11-30 15:24] LABS: Calcium, Ionized 5.7 mg/dL (4.7-5.5)
[2024-11-30 21:38] LABS: Calcium, 24 Hr Urine 251 mg/24 h; Calcium/Creatinine Ratio 235 mg/g creat (30-275); Creatinine 24Hr Urine 1.07 g/24 h (0.50-2.15)
== END 2024-11-29 08:54 | disposition home or self-care (01) ==
LOC: HO.LAB 08:53
PROVIDERS: PCP Internal Medicine; Visit Provider Student in an Organized Health Care Education/Training Program
DX: E21.0 Primary hyperparathyroidism (principal)
CPT/HCPCS: 36415; 80048; 82040; 82330; 82340; 82570; 83970; 84100

== ENCOUNTER → 2024-12-19 10:33 | Outpatient (REF) | payer OTHER, SELFPAY ==
--- NOTE | ~2024-12-19 | NM_ITS ---
EXAMINATION: NM PARATHYROID SPECT AND CT HISTORY: E21.3 - Hyperparathyroidism, unspecified. TECHNIQUE: A parathyroid imaging study was performed following intravenous administration of 30 mCi technetium 99m-[id number]. Images of the neck were obtained 20 minutes and 2 hours after administration of the radiopharmaceutical. SPECT imaging was performed at 2 hours. COMPARISON: There are no prior studies for comparison. FINDINGS: Images obtained at 20 minutes demonstrate activity in salivary glands and in both thyroid lobes, with slightly asymmetric activity at the lower pole of the left thyroid lobe. Delayed images demonstrate washout from the thyroid gland with persistent salivary gland activity. No abnormal uptake is seen on SPECT imaging. NM/NM parathyroid SPECT w CT IMPRESSION: No scintigraphic evidence of a parathyroid adenoma. Electronically signed by: Cristi Silva MD 12/20/2024 07:29 AM EDT
== END ==
LOC: HO.NUCMED 10:33
PROVIDERS: PCP Internal Medicine; Visit Provider Student in an Organized Health Care Education/Training Program
DX: E21.3 Hyperparathyroidism, unspecified (principal)
CPT/HCPCS: 78072; A9500

== ENCOUNTER → 2024-12-19 10:35 | Outpatient (BNV) | payer OTHER, SELFPAY | PROVIDERS: PCP Internal Medicine; Visit Provider Radiology Diagnostic Radiology | DX: E21.3 Hyperparathyroidism, unspecified (principal) | CPT/HCPCS: 78072 ==

== ENCOUNTER 2025-01-10 08:11 | Outpatient (AMB) | payer OTHER, SELFPAY ==
[2025-01-10 08:14] VITALS: BP 130/54; PULSE 59; O2SAT 96; BMI 36.2
--- NOTE | 2025-01-10 08:14 | A.OFFVIS_ITS ---
Vital Signs 01/10/25 08:14 Height 4 ft 11 in Weight 179 lb 3.773 oz BMI 36.2 BP 130/54 L Blood Pressure Location Lt brachial Position Sitting Pulse 59 Pulse Source Pulse Oximeter Pulse Oximetry (%) 96 Oxygen Delivery Method Room Air Intake Visit Reasons: Primary hyperparathyroidism Intake Note: Patient present today for Primary hyperparathyroidism office visit. Outside Sales Associate Required: No Accompanied by: Self / Same As Patient Allergies vancomycin [VANCOMYCIN] Allergy (Intermediate, Verified 01/10/25 08:22) SWELLING levofloxacin [From Levaquin] Allergy (Unknown, Verified 01/10/25 08:22) RASH HPI Comments Details: 64-year-old female here today for follow up of primary hyperparathyroidism. HPI Chart review shows she has had hypercalcemia at least since 2019. I do not see any normal calcium levels before that. Over the last year in 2023 her calcium has ranged anywhere from 11-11.2 mg/dL with albumin of 4.3-4.5 g per dL. Corrected calcium would be somewhere around 10.7 mg/dL. Most recent labs from 10/12/2024 show calcium of 11.1, with albumin of 4.5, corrected calcium would be around 10.6 mg/dL. However ionized calcium also elevated at 5.8. Vitamin-D of 43.1, normal kidney function. She was previously seeing Dr. Reese, last seen in 2022, at that time decision was made to monitor her hypercalcemia and primary hyperparathyroidism given she did not meet surgical criteria. Significant medical history includes past stage 4 malignant melanoma with lymph node involvement treated in 2000, hypertension, and hypothyrodiism, managed with current medications. No history of renal stones , renal ultrasound 11/01/2024 did not show any kidney stone No history of osteoporosis, bone density 06/18/2023 showed osteopenia of the lumbar spine with T-score of-1.6, normal forearm bone density with T-score of- 0.2. Normal bone density of the hip with left femoral neck T-score of-0.5, and left femur total T-score of 0.7. This was the patient's baseline examination. FRAX did not meet criteria for treatment. No more HCTZ for BP control, stopped 2022 Falls or fractures : none Biotin: no Reports headaches, palpitation, reports abd discomfort, acid reflux , some brain fog, reports intermittent dizziness, reports tiredness. No constipation. No calcium suppleemnts Vitamin D 2000 units No milk, upset stomach Cheese every other day, yogurt 3 times a week Interval history 12/19/24: NM spect CT parathryoid scan did not identify adenoma Labs repeated most recently 11/29/2024 showed calcium of 10.3, with albumin of 4.3, corrected calcium would be 10, ionized calcium elevated at 5.7, phosphorus normal at 3, PTH elevated at 163.9, normal kidney function, 24 hour urine calcium elevated at 251 with calcium creatinine ratio of 235, fractional excretion of calcium 0.02 on Vitamin D 2000 units daily Cheese every other day, yogurt 3 times a week Physical exam General: sitting comfortably in no acute distress HEENT: normocephalic/atraumatic, moist oral mucosa Neck: supple, symmetrical, no thyromegaly , no dorsocervical or supraclavicular fat pads Cardiac: normal heart sounds Pulm: normal breath sounds B/L, no added breath sounds Abd: not distended, no tenderness Extremities: Mild left extremity swelling Neuro: AAO x3, Speech: normal, no facial droop, moving all 4 extremities Laboratory Tests 02/15/19 07/29/19 10/10/21 08:35 23:21 10:16 Creatinine Estimated GFR Calcium 10.4 H 10.4 H 11.4 H Ionized Calcium Albumin 4.4 4.6 25-OH Vitamin D Total 45.3 36.6 PTH Intact Calcium (PTH Intact) Ur 24 Hour Volume Ur Creatinine mg/dL Ur Creatinine 24 Hour Ur Calcium 24 Hr Calcium/Creat 24 Hr 01/21/22 02/07/22 09/17/22 07:05 19:09 11:49 Creatinine Estimated GFR Calcium 10.4 H D 10.2 10.2 Ionized Calcium Albumin 4.2 4.1 4.3 25-OH Vitamin D Total 35.9 PTH Intact 114 H 163 H Calcium (PTH Intact) 10.2 10.1 Ur 24 Hour Volume Ur Creatinine mg/dL Ur Creatinine 24 Hour Ur Calcium 24 Hr Calcium/Creat 24 Hr 09/19/22 11/27/22 01/26/23 15:26 09:54 09:12 Creatinine Estimated GFR Calcium 10.5 H 10.4 H Ionized Calcium 5.6 H Albumin 4.2 4.3 25-OH Vitamin D Total 34.4 45.3 PTH Intact 114 H Calcium (PTH Intact) 11.0 H Ur 24 Hour Volume Ur Creatinine mg/dL Ur Creatinine 24 Hour Ur Calcium 24 Hr Calcium/Creat 24 Hr 06/02/23 06/04/23 06/06/23 11:06 09:39 07:00 Creatinine 0.84 Estimated GFR > 60 Calcium 10.9 H 11.0 H Ionized Calcium Albumin 4.5 4.4 25-OH Vitamin D Total PTH Intact 106 H 90 H Calcium (PTH Intact) 10.7 H 10.7 H Ur 24 Hour Volume 3140 Ur Creatinine mg/dL 27.22 Ur Creatinine 24 Hour 0.9 L Ur Calcium 24 Hr 210 Calcium/Creat 24 Hr 239 10/02/23 06/16/24 10/12/24 10:19 07:40 11:09 Creatinine 0.79 Estimated GFR > 60 Calcium 11.0 H 11.2 H 11.1 H Ionized Calcium 5.8 H 5.8 H Albumin 4.3 4.5 4.5 25-OH Vitamin D Total 39.6 35.7 43.1 PTH Intact 106.9 H 129.5 H Calcium (PTH Intact) Ur 24 Hour Volume Ur Creatinine mg/dL Ur Creatinine 24 Hour Ur Calcium 24 Hr Calcium/Creat 24 Hr Fractional excretion of calcium based on labs from 06/06/2023:0.018 Laboratory Tests 11/29/24 11/29/24 08:55 09:02 Creatinine 0.91 Estimated GFR > 60 Calcium 10.3 H D Ionized Calcium 5.7 H Phosphorus 3.0 Albumin 4.3 PTH Intact 163.8 H Ur 24 Hour Volume 1550 Ur Creatinine mg/dL 74.09 Ur Creatinine 24 Hour 1.1 Ur Calcium 24 Hr 251 H Calcium/Creat 24 Hr 235 Fractional excretion of calcium calculated from labs 11/29/24: 0.02 EXAMINATION: NM PARATHYROID SPECT AND CT 12/19/24 HISTORY: E21.3 - Hyperparathyroidism, unspecified. TECHNIQUE: A parathyroid imaging study was performed following intravenous administration of 30 mCi technetium 99m-sestamibi. Images of the neck were obtained 20 minutes and 2 hours after administration of the radiopharmaceutical. SPECT imaging was performed at 2 hours. COMPARISON: There are no prior studies for comparison. FINDINGS: Images obtained at 20 minutes demonstrate activity in salivary glands and in both thyroid lobes, with slightly asymmetric activity at the lower pole of the left thyroid lobe. Delayed images demonstrate washout from the thyroid gland with persistent salivary gland activity. No abnormal uptake is seen on SPECT imaging. NM/NM parathyroid SPECT w CT IMPRESSION: No scintigraphic evidence of a parathyroid adenoma. Electronically signed by: Cristi Silva MD 12/20/2024 07:29 AM EDT RP US RETROPERITONEAL LIMITED (RENAL ONLY) 06/18/23 CLINICAL INFORMATION: Hyperparathyroidism, unspecified. Rule out nephrolithiasis. COMPARISON: CT abdomen and pelvis 04/02/2010. TECHNIQUE: Real-time imaging of the kidneys. FINDINGS: RIGHT KIDNEY: 9.6 x 4.5 x 3.8 cm (SAG x AP x TRV). The kidney is normal in size, contour, and echogenicity. Renal cortical thickness is normal. No calculi or focal parenchymal lesions. No hydronephrosis. LEFT KIDNEY: 9.3 x 5.1 x 4.3 cm (SAG x AP x TRV). The kidney is normal in size, contour, and echogenicity. Renal cortical thickness is normal. No calculi or focal parenchymal lesions. No hydronephrosis. US/US renal BI IMPRESSION: Normal renal ultrasound. BONE DENSITOMETRY 06/18/23 CLINICAL INDICATION: Hyperparathyroidism, unspecified. COMPARISON: This is the patient's baseline examination. TECHNIQUE: Using a [employer] DXA System (software version: 13.1) manufactured by [employer], dual-energy x-ray absorptiometry was performed of the lumbar spine, left hip, and left forearm radius 33%. The images are of good technical quality. Summary results are attached. FINDINGS: LEFT FEMUR, NECK: BMD 0.969 g/cm2, Z-score 0.6, T-score -0.5, normal. LEFT FEMUR, TOTAL: BMD 1.100 g/cm2, Z-score 1.5, T-score 0.7, normal. AP SPINE L1-L2 (excluding L3 and L4): The data of L1-L4 has been changed to exclude the L3 and L4 vertebral bodies, because significant degenerative change at these levels may cause overestimation of lumbar spine density. BMD 0.974 g/cm2, Z-score -0.6, T-score -1.6, osteopenia. LEFT FOREARM RADIUS 33%: BMD 0.856 g/cm2, Z-score 0.9, T-score -0.2, normal. IDENTIFIED RISK FACTORS: Menopause, hyperparathyroidism, Thiazide. HISTORY OF FRACTURE: None listed. MEDICATIONS: Vitamin D. MM/XR DEXA appendicular skeleton IMPRESSION: 1. DIAGNOSIS: Osteopenia based on the lowest T-score value of -1.6 in the lumbar spine applying World Health Organization criteria. 2. 10-YEAR FRACTURE RISK PREDICTION, FRAX: Major osteoporotic fracture (clinical spine, forearm, hip or shoulder) 3.6%. Hip fracture 0.1%. [facility] Medical History Allergic rhinitis Primary osteoarthritis of knees, bilateral Primary hyperparathyroidism Hypercalcemia History of opioid abuse History of melanoma Vitamin D deficiency Pure hypercholesterolemia Obesity (BMI 30-39.9) Benign essential hypertension Acquired hypothyroidism Surgical History Hx of tonsillectomy History of delivery History of surgery Family History Father No problems noted. Mother Cancer Other Mental health problem Substance abuse Social History Housing: Apartment Alcohol intake: former Patient Tobacco Use Status: Former Tobacco user e-Cigarette/Vaping Use: Never Used Second Hand Smoke Exposure: Yes service: No Current occupational status: disabled Cognitive needs: No Hearing needs: No Vision needs: Yes Physical Exam Vital Signs: Last Vital Signs Pulse 59 01/10/25 08:14 BP 130/54 L 01/10/25 08:14 Pulse Ox 96 01/10/25 08:14 Oxygen Delivery Method Room Air 01/10/25 08:14 BMI result Body Mass Index 36.2 Assessment & Plan Assessment & Plan (1) Primary hyperparathyroidism: Code(s): E21.0 - Primary hyperparathyroidism Category: Medical Plan: 64-year-old female here today for follow up of primary hyperparathyroidism. Chart review shows she has had hypercalcemia at least since 2019. I do not see any normal calcium levels before that. Over the last year in 2023 her calcium has ranged anywhere from 11-11.2 mg/dL with albumin of 4.3-4.5 g per dL. Corrected calcium would be somewhere around 10.7 mg/dL. Most recent labs from 10/12/2024 show calcium of 11.1, with albumin of 4.5, corrected calcium would be around 10.6 mg/dL. However ionized calcium also elevated at 5.8. Vitamin-D of 43.1, normal kidney function. Over the past her given that her calcium levels have been around 11.1, 11.2, and she is having symptoms possibly from hypercalcemia, we can plan to have her evaluated for surgical management. She otherwise does not have any history of renal stones, normal renal ultrasound from October 2024, no history of osteoporosis,bone density 06/18/2023 showed osteopenia of the lumbar spine with T-score of-1.6, normal forearm bone density with T-score of-0.2. Normal bone density of the hip with left femoral neck T- score of-0.5, and left femur total T-score of 0.7. This was the patient's baseline examination. FRAX did not meet criteria for treatment. Labs repeated most recently 11/29/2024 showed calcium of 10.3, with albumin of 4.3, corrected calcium would be 10, ionized calcium elevated at 5.7, phosphorus normal at 3, PTH elevated at 163.9, normal kidney function, 24 hour urine calcium elevated at 251 with calcium creatinine ratio of 235, fractional excretion of calcium 0.02 Given it has not been 2 years to her last bone density, holding off on ordering this for now. 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 We will have her evaluated with the Endocrine surgery.12/19/24: NM spect CT parathryoid scan did not identify adenoma , she might need parathyroid exploration if decided on surgery. Plan: -referral placed for Dr. Amina Oreilly at [facility] for surgical evaluation -repeat labs in 6 weeks -follow up in 3 months - Continue taking vitamin D 2000 units daily. - Maintain a daily intake of calcium-rich foods with 2 to 3 servings, such as yogurt, cheese, spinach, and almonds. Plan I spent 30 minutes in reviewing the record, seeing the patient and documenting in the medical record. Orders: Orders Albumin Level 4 Weeks E21.0 - Primary hyperparathyroidism Calcium 4 Weeks E21.0 - Primary hyperparathyroidism Calcium, Ionized 4 Weeks E21.0 - Primary hyperparathyroidism Phosphorus 4 Weeks E21.0 - Primary hyperparathyroidism Vitamin D 25-OH Total 4 Weeks E21.0 - Primary hyperparathyroidism Parathyroid Hormone Intact 4 Weeks E21.0 - Primary hyperparathyroidism Creatinine 4 Weeks E21.0 - Primary hyperparathyroidism Referrals General Surgery Referral E21.0 - Primary hyperparathyroidism Patient Instructions: We will send referral to the endocrine surgeon at [facility] Dr. Oreilly Do blood work at [facility] [address] [place] [address] in [facility] in 4- 6 weeks and have them fax results to me at [phone] Continue taking vitamin D 2000 units daily. Maintain a daily intake of calcium-rich foods with 2 to 3 servings, such as yogurt, cheese, spinach, and almonds. Dr. Amina Oreilly office number [phone] Coding Level of Care Code Est Pt Level 4 (44468) Diagnoses Primary hyperparathyroidism E21.0 Time Spent (min) 30
== END 2025-01-10 08:56 | disposition home or self-care (01) ==
LOC: HO.ENCR 08:11
PROVIDERS: PCP Internal Medicine; Visit Provider Student in an Organized Health Care Education/Training Program
DX: E21.0 Primary hyperparathyroidism (principal)
CPT/HCPCS: 99214

== ENCOUNTER → 2025-01-10 08:11 | Outpatient (BNVA) | payer OTHER, SELFPAY | PROVIDERS: PCP Internal Medicine; Visit Provider Student in an Organized Health Care Education/Training Program | DX: E21.0 Primary hyperparathyroidism (principal) | CPT/HCPCS: 99212 ==

== ENCOUNTER 2025-02-06 07:40 | Outpatient (REF) | payer OTHER, SELFPAY ==
[2025-02-06 08:03] LABS: MANUAL DIFF FLAG NO
[2025-02-06 08:35] LABS: Basophils Percent Auto 0.2 % (0-2); Eosinophils Absolute Auto 0.1 X10*3/uL (0.0-0.4); Eosinophils Percent Auto 2.5 % (0-4); Hematocrit 35.4 % (37.0-47.0); Hemoglobin 11.6 g/dl (12.0-16.0); Imm Gran Abs Auto 0.03 X10*3/uL (0.00-0.03); Imm Gran Pct Auto 0.5 % (0.0-0.4); Lymphocytes Absolute Auto 1.5 X10*3/uL (1.2-4.9); Lymphocytes Percent Auto 27.5 % (20-40); Mean Corpuscular HGB Conc 32.8 g/dl (31.0-35.0); Mean Corpuscular Hemoglobin 29.6 pg (27.0-33.0); Mean Corpuscular Volume 90.3 fL (80.0-98.0); Mean Platelet Volume 9.9 fL (9.4-12.3); Monocytes Absolute Auto 0.5 X10*3/uL (0.1-1.2); Monocytes Percent Auto 9.4 % (2-11); Neutrophils Absolute Auto 3.4 x10*3/uL (2.0-8.3); Neutrophils Percent Auto 59.9 % (45-73); Platelet Count 348 X10*3/uL (160-400); Red Blood Count 3.92 X10*6/uL (4.20-5.50); Red Cell Distribution Width 12.8 % (11.0-16.0); White Blood Count 5.6 X10*3/uL (4.8-10.8)
[2025-02-06 08:51] LABS: Appearance Urine Clear; Color Urine Yellow; Glucose Urine UA Negative (Negative); Leukocyte Esterase Urine Negative (Negative); Nitrite Urine Negative (Negative); PH 6.5 (5.0-9.0); Specific Gravity - Urine 1.015 (1.005-1.025); Urine Blood Negative (Negative); Urine Ketones Negative (Negative); Urine Protein Negative (Neg-Trace)
[2025-02-06 09:05] LABS: Parathyroid Hormone Intact 144.6 pg/mL (8.7-77.1)
[2025-02-06 09:08] LABS: Alanine Aminotransferase 12 U/L (0-31); Albumin Level 4.2 g/dL (3.5-5.0); Alkaline Phosphatase 99 U/L (39-117); Anion Gap 11 (12-20); Aspartate Amino Transferase 20 U/L (5-31); Bilirubin Total 0.2 mg/dL (0.0-1.0); Blood Urea Nitrogen 18 mg/dL (9-16); Calcium 10.4 mg/dL (8.4-10.2); Carbon Dioxide 23 mmol/L (22-29); Chloride 113 mmol/L (96-108); Cholesterol 155 mg/dL (<200); Estimated Glomerular Filt Rate > 60; Glucose Fasting 97 mg/dL (60-99); HDL Cholesterol 48 mg/dL (>40); LDL Cholesterol Calculated 89 mg/dL (<100); Phosphorus 2.7 mg/dL (2.7-4.5); Potassium 4.5 mmol/L (3.3-5.1); Sodium 142 mmol/L (135-145); Total Protein 7.2 g/dL (6.5-8.0); Triglycerides 92 mg/dL (<150)
[2025-02-06 09:28] LABS: Free T4 (Free Thyroxine) 1.32 ng/dL (0.71-1.85); Thyroid Stimulating Hormone 0.43 uIU/mL (0.32-4.0); Vitamin D 25-OH Total 38.3 ng/mL (>30)
[2025-02-08 13:38] LABS: Calcium, Ionized 5.9 mg/dL (4.7-5.5)
== END 2025-02-06 07:41 | disposition home or self-care (01) ==
LOC: HO.LAB 07:40
PROVIDERS: Visit Provider Internal Medicine
DX: E21.0 Primary hyperparathyroidism (principal); E55.9 Vitamin D deficiency, unspecified; E03.9 Hypothyroidism, unspecified; E78.00 Pure hypercholesterolemia, unspecified; R30.0 Dysuria; D64.9 Anemia, unspecified
CPT/HCPCS: 36415; 80053; 80061; 81003; 82306; 82330; 83970; 84100; 84439; 84443; 85025

== ENCOUNTER 2025-02-10 09:36 | Outpatient (AMB) | payer OTHER, SELFPAY ==
[2025-02-10 09:44] VITALS: BP 122/60; PULSE 63; TEMP 36.1; O2SAT 96; BMI 36.6
--- NOTE | 2025-02-10 09:44 | A.OFFPC_ITS ---
Vital Signs 02/10/25 09:44 Height 4 ft 11 in Weight 181 lb 2 oz BMI 36.6 BP 122/60 Blood Pressure Location Lt brachial Position Sitting Pulse 63 Pulse Source Pulse Oximeter Temp 97.0 F Temp Source Temporal Artery Scan Pulse Oximetry (%) 96 Oxygen Delivery Method Room Air Intake Visit Reasons: 4 month f/u Allergies vancomycin [VANCOMYCIN] Allergy (Intermediate, Verified 02/10/25 10:09) SWELLING levofloxacin [From Levaquin] Allergy (Unknown, Verified 02/10/25 10:09) RASH Medication List - Last Reconciled 02/10/25 by Steven Dejesus MD cholecalciferol (vitamin D3) 50 mcg PO DAILY levothyroxine 125 mcg PO QAM meclizine 25 mg PO BID PRN triamcinolone acetonide (Nasacort) 2 sprays intranasal DAILY PRN valsartan 160 mg PO BID Tobacco use date assessed: 02/10/25 Fall risk assessment: No Falls in past year Last assessed Fall Risk: 02/10/25 Dental Screening Dental Screen Date: 02/10/25 Did you have a dental visit in the last 12 months?: No Did you have a dental problem in the last 6 months where you did not have access to dental care?: No Was dental information given to patient?: Patient has dentist HPI 4 month f/u HPI Details Patient comes in today for her follow up visit States that she continues to experience multiple non-specific symptoms of on and off headaches, dizziness and increased fatigue, which she states have been going on for a while now Also reports (+) diffuse aches and pains as well as non-specific joint pains involving multiple joints She denies any chest pains, no increased SOB No nausea/vomiting, no abdominal pain No change in bowel habits noted She had her follow up labs done a few days ago - to discuss her results She was seen by Dr. Malik for endocrinology follow up last month and was referred to Dr. Oreilly in [place] for consideration for parathyroidectomy Patient is also requesting for a referral to GI for a screening colonoscopy - states that her last one was done over 10 years ago and she believes that she is overdue for repeat colonoscopy PFSH Medical History Allergic rhinitis Primary osteoarthritis of knees, bilateral Primary hyperparathyroidism Hypercalcemia History of opioid abuse History of melanoma Vitamin D deficiency Pure hypercholesterolemia Obesity (BMI 30-39.9) Benign essential hypertension Acquired hypothyroidism Surgical History Hx of tonsillectomy History of delivery History of surgery Family History Father No problems noted. Mother Cancer Other Mental health problem Substance abuse Social History Housing: Apartment Alcohol intake: former Patient Tobacco Use Status: Former Tobacco user e-Cigarette/Vaping Use: Never Used Second Hand Smoke Exposure: Yes service: No Current occupational status: disabled Cognitive needs: No Hearing needs: No Vision needs: Yes Questionnaire PHQ-9 Over the last 2 weeks, how often have you been bothered by any of the following problems? 1. Little interest or pleasure in doing things: not at all 2. Feeling down, depressed, or hopeless: not at all 3. Trouble falling or staying asleep, or sleeping too much: not at all 4. Feeling tired or having little energy: not at all 5. Poor appetite or overeating: not at all 6. Feeling bad about yourself - or that you are a failure or have let yourself or your family down: not at all 7. Trouble concentrating on things, such as reading the newspaper or watching television: not at all 8. Moving or speaking so slowly that other people could have noticed. Or the opposite - being so fidgety or restless that you have been moving around a lot more than usual: not at all 9. Thoughts that you would be better off or of hurting yourself in some way: not at all Total score: 0 Depression Screening Interpretation: Negative Depression Screening Done: Yes 00034 - PHQ-9 Billing: Yes Source: Developed by Drs. Cristi Fuentes, Frances Ayon, Chaparro Harrison and colleagues, with an educational jimmy from [employer]. Thrive Questionnaire Date Thrive assessed: 10/12/24 I am a: Patient What is your living situation today?: I have a steady place to live Within the past 12 months, did the food you bought not last and you didn't have the money to get more?: Never true Within the past 12 months, did you worry whether your food would run out before you got money to buy more?: Never true Do you have trouble paying for medicines?: No Do you have trouble getting transportation to medical appointments?: No Do you have trouble paying your heating and electricity bill?: No Do you have trouble taking care of your child, family member or friend?: No Do you have trouble with day-to-day activities such as bathing, preparing meals, shopping, managing finances, etc.?: No Are you currently unemployed and looking for a job?: No Are you interested in more education?: No Please select the resources that you would like help with: None Currently or been in a relationship where the following occur: No concerns reported THRIVE Score: 0 AUDIT C Alcohol Use Questionnaire (AUDIT-C) 1. How often do you have a drink containing alcohol?: Never 3. How often do you have six or more drinks on one occasion?: Never Total Score: 0 Score Reviewed/Action Taken: Yes ROGER-7 AMB Questionnaire ROGER-7 Date ROGER - 7 assessed: 10/12/24 Feeling nervous, anxious, or on edge: 0 = Not at all Not being able to stop or control worryin = Not at all Worrying too much about different things: 0 = Not at all Trouble relaxin = Not at all Being so restless that it is hard to sit still: 0 = Not at all Becoming easily annoyed or irritable: 0 = Not at all Feeling afraid as if something awful might happen: 0 = Not at all Total ROGER-7 score (0-4 normal; 5-9 mild; 10-14 moderate; 15-21 severe): 0 Source: Developed by Drs. Cristi Fuentes, Frances Ayon, Chaparro Harrison and colleagues, with an educational jimmy from [employer]. Review of Systems Const Denies chills, Reports fatigue, Denies fever(s) and Reports headache(s) (on and off) Eyes Denies blurry vision ENT Denies dysphagia, Denies dizziness, Denies otalgia, Reports headache(s) (on and off), Denies neck pain, Denies odynophagia and Denies sore throat Card Denies chest pain, Denies palpitations and Denies dyspnea Resp Denies chest congestion, Denies cough and Denies dyspnea GI Denies abdominal pain, Denies constipation, Denies dysphagia, Denies heartburn, Denies diarrhea, Denies nausea, Denies odynophagia and Denies vomiting Denies difficulty voiding, Reports nocturia, Denies dysuria, Reports urinary incontinence (rarely, mostly urge incontinence) and Denies urinary urgency Musc Denies back pain, Reports myalgias, Reports arthralgias (over both knees; in the right shoulder (on and off)) and Denies neck pain Skin/Breast Denies rash Neuro Denies dizziness and Reports headache(s) (on and off) Psych Reports anxiety Endo Reports fatigue and Denies palpitations Physical exam (Primary Care) Vital Signs: Last Vital Signs Temp 97.0 F 02/10/25 09:44 Pulse 63 02/10/25 09:44 BP 122/60 02/10/25 09:44 Pulse Ox 96 02/10/25 09:44 Oxygen Delivery Method Room Air 02/10/25 09:44 BMI result Body Mass Index 36.6 Tobacco/Smoking Status: Tobacco use Status Tobacco use date assessed 02/10/25 02/10/25 09:48 Patient Tobacco Use Status Former Tobacco user 02/10/25 09:48 e-Cigarette/Vaping Use Never Used 02/10/25 09:48 PHQ-9: PHQ-9 Score PHQ-9: Total score 0 02/10/25 13:46 Depression Screening Interpretation: Negative Thrive Assessment: Date of Thrive Assessment Date Thrive assessed 10/12/24 02/10/25 09:48 Currently or been in a relationship where the following occur: No concerns reported Const General: no acute distress and alert HENMT Ears: TM's normal bilaterally and EAC's normal Throat: Yes posterior oropharynx normal and Yes tonsils normal (no TP congestion noted) Neck Neck: Yes supple and No lymphadenopathy Thyroid: Thyroid normal Resp Auscultation: clear to auscultation bilaterally, no rales and no wheezes Cardio Rate: regular rate Rhythm: regular rhythm Heart sounds: no murmurs GI Palpation (GI): Soft to palpation and nontender Auscultation: normal bowel sounds General: Yes no CVA tenderness Back/Spine/Pelvis Back: no CVA tenderness Thoracic/Lumbar Spine: No lumbar spinal tenderness Skin Rashes: no rashes Extrem General: Yes no clubbing, cyanosis or edema Right lower extremity: knee Details: tenderness Location: of the pre-patellar area and of the infrapatellar area; no swelling Left lower extremity: knee Details: tenderness Location: of the pre-patellar area and of the infrapatellar area; no swelling Results Reviewed Results Reviewed: Laboratory Tests 02/06/25 02/06/25 07:53 08:01 WBC 5.6 Hgb 11.6 L Hct 35.4 L Plt Count 348 Sodium 142 Potassium 4.5 Creatinine 0.78 Estimated GFR > 60 Fasting Glucose 97 Calcium 10.4 H Ionized Calcium 5.9 H AST 20 ALT 12 Triglycerides 92 Cholesterol 155 LDL Cholesterol, Calc 89 HDL Cholesterol 48 25-OH Vitamin D Total 38.3 TSH 0.43 Free T4 1.32 PTH Intact 144.6 H Ur Specific [place] 1.015 Urine Protein Negative Urine Glucose (UA) Negative Urine Blood Negative Urine Nitrite Negative Ur Leukocyte Esterase Negative Coding Level of Care Code Est Pt Level 4 (56592) Diagnoses Hypercalcemia E83.52 Primary hyperparathyroidism E21.0 Pure hypercholesterolemia E78.00 Benign essential hypertension I10 Acquired hypothyroidism E03.9 Vitamin D deficiency E55.9 Allergic rhinitis, unspecified seasonality, unspecified trigger J30.9 Allergic rhinitis seasonality: unspecified Allergic rhinitis trigger: unspecified Primary osteoarthritis of knees, bilateral M17.0 Primary osteoarthritis of hands, bilateral M19.041; M19.042 Overactive bladder N32.81 History of melanoma Z85.820 History of opioid abuse F11.11 Anxiety F41.9 Obesity (BMI 30-39.9) E66.9 Colon cancer screening Z12.11 Additional Codes PHQ-9 - 86780 - PHQ-9 Billing: Yes ([id number]) Assessment & Plan Assessment & Plan (1) Hypercalcemia: Code(s): E83.52 - Hypercalcemia Category: Medical Plan: Patient's serum calcium level was elevated at 11.2 mg/dL when last checked in May 2024; this is still slightly elevated at 10.4 mg/dl on her labs done a few days ago This is most likely due to her primary hyperparathyroidism She was following up with endocrinology previously but was advised that as she has not had any current acute or concerning symptoms (kidney stones on renal US or osteoporosis on her recent BMD), she does not meet criteria for surgical exploration and have recommended that she just continue with routine follow up with her PCP and have her serum calcium level monitored regularly every 6 months or so, and to refer her back to endocrinology only if her serum calcium level goes up to over 11.2 or she becomes symptomatic (2) Primary hyperparathyroidism: Code(s): E21.0 - Primary hyperparathyroidism Category: Medical Plan: Patient was seen by endocrinology in late 2022 and was advised that she did not meet criteria for surgical exploration of her primary hyperparathyroidism, and have recommended that she just continue to monitor her labs through her PCP and be referred back only when her serum calcium level goes back up to over 11.2 or she becomes symptomatic As she was complaining of increasing headaches lately and is concerned about her serum calcium level and hyperparathyroid condition, she requested a referral again to endocrinology at her last visit for reassessment She was seen by Dr. Malik last month and has been referred to Dr. Oreilly in [place] for consideration for parathyroidectomy Patient states that she has already been seen in [place] and is currently undergoing further testing and states that she is scheduled for surgery with Dr. Oreilly on 04/28/2025 (3) Pure hypercholesterolemia: Code(s): E78.00 - Pure hypercholesterolemia, unspecified Category: Medical Plan: Results of her labs done a few days ago reviewed and discussed with patient - she is advised that her cholesterol levels are at goal Reinforced low-cholesterol diet Will recheck her labs in fasting lipids again in 4 months for follow-up (4) Benign essential hypertension: Code(s): I10 - Essential (primary) hypertension Category: Medical Plan: Reinforced low sodum diet - goal is systolic BP of 120 to 130 mm or less Continue Valsartan 160 mg BID Patient was also previously started additionally on Amlodipine 2.5 mg QD but she ran out of this a few months later and could not get her pharmacy to refill the Rx immediately Patient noticed then that she actually felt better being off Amlodipine and that her ankles and feet were not as swollen since she came off the Rx Her BP log at the time showed that her systolic BP ranges from 97 to 133 mm at the highest and diastolic BP ranging from 63 to 79 mm She was kept OFF Amlodipine as her blood pressure appears to be doing well without it and she appears to be doing well since She is reminded to continue monitoring her blood pressure regularly (5) Acquired hypothyroidism: Code(s): E03.9 - Hypothyroidism, unspecified Category: Medical Plan: Her TFTs were normal on her recent labs Continue Levothyroxine 125 mcg QD Will recheck her TFTs again in 4 months for follow up (6) Vitamin D deficiency: Code(s): E55.9 - Vitamin D deficiency, unspecified Category: Medical Plan: Continue Vitamin D3 2000 units QD (7) Allergic rhinitis: Code(s): J30.9 - Allergic rhinitis, unspecified Category: Medical Qualifiers: Allergic rhinitis seasonality: unspecified Allergic rhinitis trigger: unspecified Qualified Code(s): J30.9 - Allergic rhinitis, unspecified Plan: Continue Nasacort nasal spray 55 mcg 2 sprays into each nostril QD PRN (8) Primary osteoarthritis of knees, bilateral: Code(s): M17.0 - Bilateral primary osteoarthritis of knee Category: Medical Plan: X-rays of both knees done back in January 2023 revealed (+) mild degenerative changes bilaterally Will consider referring her to orthopedics if her knee symptoms progress (9) Primary osteoarthritis of hands, bilateral: Code(s): M19.041 - Primary osteoarthritis, right hand; M19.042 - Primary osteoarthritis, left hand Category: Medical Plan: X-rays of both hands done in February 2018 showed (+) mild arthritis changes at the DIP joint of the 5th fingers of both hands, with no other abnormalities noted Patient is encouraged to continue with hand and finger exercises regularly to help manage her symptoms (10) Overactive bladder: Code(s): N32.81 - Overactive bladder Category: Medical Plan: Patient was started on a trial Detrol LA 4 mg Q HS last year as she states that her trips to the bathroom frequently interrupts her sleep at night and she often feels very tired, likely from lack of sleep States that the Rx did not really help too much so she stopped taking Detrol a few months later She was then referred to urology for further management and has been started instead on Terazosin 1 mg Q HS Follow up with urology as scheduled (11) History of melanoma: Code(s): Z85.820 - Personal history of malignant melanoma of skin Category: Medical Plan: Follow up with [facility] as scheduled for continuing surveillance (12) History of opioid abuse: Code(s): F11.11 - Opioid abuse, in remission Category: Medical Plan: She used to take Suboxone but was able to come off this a couple of years ago States that she has been clean for years now with no cravings or relapse (13) Anxiety: Code(s): F41.9 - Anxiety disorder, unspecified Category: Medical Plan: She used to take Lorazepam but states that she has been doing well OFF of it for several months with no flare ups of her anxiety (14) Obesity (BMI 30-39.9): Code(s): E66.9 - Obesity, unspecified Category: Medical Plan: Reinforced diet/exercise as tolerated/lose weight (15) Colon cancer screening: Code(s): Z12.11 - Encounter for screening for malignant neoplasm of colon Category: Medical Plan: Per request, will refer her to GI for repeat colonoscopy Plan Follow up in 4 months Orders: Orders Lipid Panel 4 Months E78.00 - Pure hypercholesterolemia, unspecified Thyroid Stimulating Hormone 4 Months E03.9 - Hypothyroidism, unspecified Free T4 (Free Thyroxine) 4 Months E03.9 - Hypothyroidism, unspecified Complete Blood Count Auto Diff 4 Months D64.9 - Anemia, unspecified Comprehensive [place]. Panel Fast 4 Months E78.00 - Pure hypercholesterolemia, unspecified Vitamin D 25-OH Total 4 Months E55.9 - Vitamin D deficiency, unspecified UA CC w/rflx Micro + Cult 4 Months R30.0 - Dysuria Referrals Gastroenterology Referral Z12.11 - Encounter for screening for malignant neoplasm of colon
== END 2025-02-10 10:20 | disposition home or self-care (01) ==
LOC: HO.HMCH 09:37
PROVIDERS: PCP Internal Medicine; Visit Provider Internal Medicine
DX: E83.52 Hypercalcemia (principal); E78.00 Pure hypercholesterolemia, unspecified; F11.11 Opioid abuse, in remission; I10 Essential (primary) hypertension; E03.9 Hypothyroidism, unspecified; E55.9 Vitamin D deficiency, unspecified; J30.9 Allergic rhinitis, unspecified; M17.0 Bilateral primary osteoarthritis of knee; M19.041 Primary osteoarthritis, right hand; M19.042 Primary osteoarthritis, left hand; N32.81 Overactive bladder; Z85.820 Personal history of malignant melanoma of skin

== ENCOUNTER → 2025-02-10 09:36 | Outpatient (BNVA) | payer OTHER, SELFPAY | PROVIDERS: PCP Internal Medicine; Visit Provider Internal Medicine | DX: E83.52 Hypercalcemia (principal); E21.0 Primary hyperparathyroidism; E78.00 Pure hypercholesterolemia, unspecified; I10 Essential (primary) hypertension; E03.9 Hypothyroidism, unspecified; E55.9 Vitamin D deficiency, unspecified; J30.9 Allergic rhinitis, unspecified; M17.0 Bilateral primary osteoarthritis of knee; M19.041 Primary osteoarthritis, right hand; M19.042 Primary osteoarthritis, left hand; N32.81 Overactive bladder; F11.11 Opioid abuse, in remission; F41.9 Anxiety disorder, unspecified; E66.9 Obesity, unspecified; Z68.36 Body mass index [BMI] 36.0-36.9, adult; Z85.820 Personal history of malignant melanoma of skin; Z79.899 Other long term (current) drug therapy; Z13.30 Encounter for screening examination for mental health and behavioral disorders, unspecified | CPT/HCPCS: 96127; 99212 ==

== ENCOUNTER 2025-06-21 07:54 | Outpatient (REF) | payer OTHER, SELFPAY ==
[2025-06-21 08:19] LABS: MANUAL DIFF FLAG NO
[2025-06-21 08:45] LABS: Hematocrit 36.5 % (37.0-47.0); Hemoglobin 11.8 g/dl (12.0-16.0); Imm Gran Abs Auto 0.03 X10*3/uL (0.00-0.03); Imm Gran Pct Auto 0.5 % (0.0-0.4); Lymphocytes Absolute Auto 1.4 X10*3/uL (1.2-4.9); Mean Corpuscular HGB Conc 32.3 g/dl (31.0-35.0); Mean Corpuscular Hemoglobin 29.3 pg (27.0-33.0); Mean Corpuscular Volume 90.6 fL (80.0-98.0); NRBC Abs Auto 0.000 X10*3/uL (0.0-0.012); NRBC Pct Auto 0.0 /100WBC (0.0-0.2); Platelet Count 331 X10*3/uL (160-400); Red Blood Count 4.03 X10*6/uL (4.20-5.50); White Blood Count 6.5 X10*3/uL (4.8-10.8)
[2025-06-21 08:48] LABS: Appearance Urine Clear; Glucose Urine UA Negative (Negative); PH 5.5 (5.0-9.0); Specific Gravity - Urine 1.010 (1.005-1.025); UMIC TRIGGER UACC YES
[2025-06-21 09:09] LABS: Alanine Aminotransferase 18 U/L (0-31); Albumin Level 4.5 g/dL (3.5-5.0); Alkaline Phosphatase 106 U/L (39-117); Anion Gap 12 (12-20); Aspartate Amino Transferase 23 U/L (5-31); Blood Urea Nitrogen 21 mg/dL (9-16); Calcium 11.0 mg/dL (8.4-10.2); Carbon Dioxide 23 mmol/L (22-29); Chloride 111 mmol/L (96-108); Cholesterol 180 mg/dL (<200); Estimated Glomerular Filt Rate > 60; HDL Cholesterol 54 mg/dL (>40); Potassium 4.7 mmol/L (3.3-5.1); Sodium 141 mmol/L (135-145); Total Protein 7.4 g/dL (6.5-8.0); Triglycerides 90 mg/dL (<150)
[2025-06-21 09:25] LABS: Free T4 (Free Thyroxine) 1.29 ng/dL (0.71-1.85); Thyroid Stimulating Hormone 0.64 uIU/mL (0.32-4.0)
== END 2025-06-21 07:55 | disposition home or self-care (01) ==
LOC: HO.LAB 07:54
PROVIDERS: PCP Internal Medicine; Visit Provider Internal Medicine
DX: E03.9 Hypothyroidism, unspecified (principal); D64.9 Anemia, unspecified; E78.00 Pure hypercholesterolemia, unspecified; E55.9 Vitamin D deficiency, unspecified
CPT/HCPCS: 36415; 80053; 80061; 81001; 82306; 84439; 84443; 85025

== ENCOUNTER 2025-06-28 09:35 | Outpatient (AMB) | payer OTHER, SELFPAY ==
[2025-06-28 09:50] VITALS: BP 122/80; PULSE 61; O2SAT 96; BMI 37.0
--- NOTE | 2025-06-28 09:50 | A.OFFPC_ITS ---
Vital Signs 06/28/25 09:50 Height 4 ft 11 in Weight 183 lb 4 oz BMI 37.0 BP 122/80 Blood Pressure Location Lt brachial Position Sitting Pulse 61 Pulse Source Pulse Oximeter Pulse Oximetry (%) 96 Oxygen Delivery Method Room Air Intake Visit Reasons: 4 Months Air Conditioning Equipment Mechanic Required: No Accompanied by: Self / Same As Patient Allergies vancomycin (VANCOMYCIN) Allergy (Intermediate, Verified 06/28/25 10:17) SWELLING levofloxacin (From Levaquin) Allergy (Unknown, Verified 06/28/25 10:17) RASH Medication List - Last Reconciled 06/28/25 by Steven Dejesus MD cholecalciferol (vitamin D3) 50 mcg PO DAILY levothyroxine 125 mcg PO QAM meclizine 25 mg PO BID PRN triamcinolone acetonide (Nasacort) 2 sprays intranasal DAILY PRN valsartan 160 mg PO BID Tobacco use date assessed: 06/28/25 Fall risk assessment: No Falls in past year Last assessed Fall Risk: 06/28/25 Dental Screening Dental Screen Date: 06/28/25 Did you have a dental visit in the last 12 months?: No Did you have a dental problem in the last 6 months where you did not have access to dental care?: No Was dental information given to patient?: No HPI 4 Months HPI Details Patient comes in today for her follow up visit She continues to complain of multiple non-specific symptoms, including recurrent headaches, fatigue, on and off dizziness and diffuse myalgia as well as non- specific joint aches and pains involving multiple joints She denies any chest pains, no increased SOB No nausea/vomiting, no abdominal pain No change in bowel habits noted Adds that she's had a recurrent itchy and sometimes painful rash on her right lower leg that has been present for a couple of weeks now States that it started out as a small patch but has gradually gotten bigger in size since and that it gets very itchy sometimes at night - would like to get something to help clear this up as it is bothering her a lot (itching) at night lately She had her follow up labs done last week - to discuss her results She was seen by Dr. Oreilly a couple of months ago for her hyperparathyroidism and she is now scheduled for parathyroid surgery next year on 10/18/2025 States that she has a preop appointment scheduled with someone over on [address] on 09/18/2025 [facility] Medical History Impaired fasting glucose Allergic rhinitis Primary osteoarthritis of knees, bilateral Primary hyperparathyroidism Hypercalcemia History of opioid abuse History of melanoma Vitamin D deficiency Pure hypercholesterolemia Obesity (BMI 30-39.9) Benign essential hypertension Acquired hypothyroidism Surgical History Hx of tonsillectomy History of delivery History of surgery Family History Father No problems noted. Mother Cancer Other Mental health problem Substance abuse Social History Housing: Apartment Alcohol intake: former Patient Tobacco Use Status: Former Tobacco user e-Cigarette/Vaping Use: Never Used Second Hand Smoke Exposure: Yes service: No Current occupational status: disabled Cognitive needs: No Hearing needs: No Vision needs: Yes Questionnaire PHQ-9 Over the last 2 weeks, how often have you been bothered by any of the following problems? Depression Screening Interpretation: Negative Depression Screening Done: Yes Source: Developed by Drs. Cristi Fuentes, Frances Ayon, Chaparro Harrison and colleagues, with an educational jimmy from [employer]. Thrive Questionnaire Date Thrive assessed: 10/12/24 I am a: Patient What is your living situation today?: I have a steady place to live Within the past 12 months, did the food you bought not last and you didn't have the money to get more?: Never true Within the past 12 months, did you worry whether your food would run out before you got money to buy more?: Never true Do you have trouble paying for medicines?: No Do you have trouble getting transportation to medical appointments?: No Do you have trouble paying your heating and electricity bill?: No Do you have trouble taking care of your child, family member or friend?: No Do you have trouble with day-to-day activities such as bathing, preparing meals, shopping, managing finances, etc.?: No Are you currently unemployed and looking for a job?: No Are you interested in more education?: No Please select the resources that you would like help with: None Currently or been in a relationship where the following occur: No concerns reported THRIVE Score: 0 AUDIT C Alcohol Use Questionnaire (AUDIT-C) 1. How often do you have a drink containing alcohol?: Never 3. How often do you have six or more drinks on one occasion?: Never Total Score: 0 Score Reviewed/Action Taken: Yes ROGER-7 AMB Questionnaire ROGER-7 Date ROGER - 7 assessed: 10/12/24 Source: Developed by Drs. Cristi Fuentes, Frances Ayon, Chaparro Harrison and colleagues, with an educational jimmy from [employer]. Review of Systems Const Denies chills, Reports fatigue, Denies fever(s) and Reports headache(s) (on and off) ENT Denies dysphagia, Reports dizziness (occasional), Denies otalgia, Reports headache(s) (on and off), Denies neck pain, Denies odynophagia and Denies sore throat Card Denies chest pain, Denies palpitations and Denies dyspnea Resp Denies chest congestion, Denies cough and Denies dyspnea GI Denies abdominal pain, Denies constipation, Denies dysphagia, Denies heartburn, Denies diarrhea, Denies nausea, Denies odynophagia and Denies vomiting Denies difficulty voiding, Reports nocturia, Denies dysuria, Reports urinary incontinence (rarely, mostly urge incontinence) and Denies urinary urgency Musc Denies back pain, Reports myalgias, Reports arthralgias (involving multiple joints, including over both knees) and Denies neck pain Skin/Breast Details: (+) itchy, sometimes painful, scaling rash on the proximal right lower leg Neuro Reports dizziness (occasional) and Reports headache(s) (on and off) Psych Reports anxiety Endo Reports fatigue and Denies palpitations Physical exam (Primary Care) Vital Signs: Last Vital Signs Pulse 61 06/28/25 09:50 BP 122/80 06/28/25 09:50 Pulse Ox 96 06/28/25 09:50 Oxygen Delivery Method Room Air 06/28/25 09:50 BMI result Body Mass Index 37.0 Tobacco/Smoking Status: Tobacco use Status Tobacco use date assessed 06/28/25 06/28/25 10:02 Patient Tobacco Use Status Former Tobacco user 06/28/25 09:52 e-Cigarette/Vaping Use Never Used 06/28/25 09:52 Depression Screening Interpretation: Negative Thrive Assessment: Date of Thrive Assessment Date Thrive assessed 10/12/24 06/28/25 09:52 Currently or been in a relationship where the following occur: No concerns reported Const General: no acute distress and alert HENMT Ears: TM's normal bilaterally and EAC's normal Throat: Yes posterior oropharynx normal and Yes tonsils normal (no TP congestion noted) Neck Neck: Yes supple and No lymphadenopathy Thyroid: Thyroid normal Resp Auscultation: clear to auscultation bilaterally, no rales and no wheezes Cardio Rate: regular rate Rhythm: regular rhythm Heart sounds: no murmurs GI Palpation (GI): Soft to palpation and nontender Auscultation: normal bowel sounds General: Yes no CVA tenderness Back/Spine/Pelvis Back: no CVA tenderness Thoracic/Lumbar Spine: No lumbar spinal tenderness Skin Other: (+) pruritic, sometimes painful, erythematous scaling rash on the proximal right lower leg anteriorly Extrem General: Yes no clubbing, cyanosis or edema Right lower extremity: knee Details: tenderness Location: of the pre-patellar area and of the infrapatellar area; no swelling Left lower extremity: knee Details: tenderness Location: of the pre-patellar area and of the infrapatellar area; no swelling Results Reviewed Results Reviewed: Laboratory Tests 02/06/25 06/21/25 06/21/25 08:01 08:14 08:17 WBC 6.5 Hgb 11.8 L Hct 36.5 L Plt Count 331 Sodium 141 Potassium 4.7 Creatinine 0.78 Estimated GFR > 60 Fasting Glucose 96 Calcium 11.0 H Ionized Calcium 5.9 H AST 23 ALT 18 Triglycerides 90 Cholesterol 180 LDL Cholesterol, Calc 108 H HDL Cholesterol 54 25-OH Vitamin D Total 39.4 TSH 0.64 Free T4 1.29 PTH Intact 144.6 H Ur Specific [place] 1.010 Urine Protein Negative Urine Glucose (UA) Negative Urine Blood Negative Urine Nitrite Negative Ur Leukocyte Esterase Trace H Coding Level of Care Code Est Pt Level 4 (07916) Diagnoses Hypercalcemia E83.52 Primary hyperparathyroidism E21.0 Pure hypercholesterolemia E78.00 Benign essential hypertension I10 Acquired hypothyroidism E03.9 Vitamin D deficiency E55.9 Allergic rhinitis, unspecified seasonality, unspecified trigger J30.9 Allergic rhinitis trigger: unspecified Allergic rhinitis seasonality: unspecified Primary osteoarthritis of knees, bilateral M17.0 Primary osteoarthritis of hands, bilateral M19.041; M19.042 Overactive bladder N32.81 Pruritic erythematous rash L29.89 History of melanoma Z85.820 History of opioid abuse F11.11 Anxiety F41.9 Obesity (BMI 30-39.9) E66.9 Assessment & Plan Assessment & Plan (1) Hypercalcemia: Code(s): E83.52 - Hypercalcemia Category: Medical Plan: Patient's serum calcium level was again elevated at 11.0 mg/dL on her recent labs and this is most likely related to her primary hyperparathyroidism Her ionized calcium was also elevated at 5.9 when last checked a few months ago She was following up with endocrinology and was previously advised that as she has not had any current acute or concerning symptoms (kidney stones on renal US or osteoporosis on her recent BMD), she does not meet criteria for surgical exploration and have recommended that she just continue with routine follow up with her PCP and have her serum calcium level monitored regularly every 6 months or so We referred her back to endocrinology when her serum calcium level went up to 11.2 earlier this year and she was in turn referred to Dr. Oreilly at [facility] for reevaluation for surgery (2) Primary hyperparathyroidism: Code(s): E21.0 - Primary hyperparathyroidism Category: Medical Plan: Patient was seen by endocrinology in late 2022 and was advised that she did not meet criteria for surgical exploration of her primary hyperparathyroidism, and have recommended that she just continue to monitor her labs through her PCP and be referred back only when her serum calcium level goes back up to over 11.2 or she becomes symptomatic As she was complaining of increasing headaches lately and is concerned about her serum calcium level and hyperparathyroid condition, she requested a referral again to endocrinology at her last visit for reassessment She was seen by Dr. Malik and subsequently referred to Dr. Oreilly in [place] for consideration for parathyroidectomy She was seen by Dr. Oreilly a couple of months ago on 04/28/2025 and is now scheduled for parathyroid surgery early next year on October 18, 2025 (3) Pure hypercholesterolemia: Code(s): E78.00 - Pure hypercholesterolemia, unspecified Category: Medical Plan: Results of her labs done a few days ago reviewed and discussed with patient - she is advised that her cholesterol levels are still at or near goal although they have gone up slightly from previous Reinforced low-cholesterol diet Will recheck her labs in fasting lipids again in 4 months for follow-up (4) Benign essential hypertension: Code(s): I10 - Essential (primary) hypertension Category: Medical Plan: Reinforced low sodum diet - goal is systolic BP of 120 to 130 mm or less Continue Valsartan 160 mg BID Patient was also previously started additionally on Amlodipine 2.5 mg QD but she ran out of this a few months later and could not get her pharmacy to refill the Rx immediately Patient noticed then that she actually felt better being off Amlodipine and that her ankles and feet were not as swollen since she came off the Rx Her BP log at the time showed that her systolic BP ranges from 97 to 133 mm at the highest and diastolic BP ranging from 63 to 79 mm She has been kept OFF Amlodipine since as her blood pressure appears to be doing well without it She is reminded to continue monitoring her blood pressure regularly (5) Acquired hypothyroidism: Code(s): E03.9 - Hypothyroidism, unspecified Category: Medical Plan: Her TFTs were normal on her recent labs Continue Levothyroxine 125 mcg QD Will recheck her TFTs again in 4 months for follow up (6) Vitamin D deficiency: Code(s): E55.9 - Vitamin D deficiency, unspecified Category: Medical Plan: Continue Vitamin D3 2000 units QD (7) Allergic rhinitis: Code(s): J30.9 - Allergic rhinitis, unspecified Category: Medical Qualifiers: Allergic rhinitis trigger: unspecified Allergic rhinitis seasonality: unspecified Qualified Code(s): J30.9 - Allergic rhinitis, unspecified Plan: Continue Nasacort nasal spray 55 mcg 2 sprays into each nostril QD PRN (8) Primary osteoarthritis of knees, bilateral: Code(s): M17.0 - Bilateral primary osteoarthritis of knee Category: Medical Plan: X-rays of both knees done back in January 2023 revealed (+) mild degenerative changes bilaterally Will consider referring her to orthopedics if her knee symptoms progress (9) Primary osteoarthritis of hands, bilateral: Code(s): M19.041 - Primary osteoarthritis, right hand; M19.042 - Primary osteoarthritis, left hand Category: Medical Plan: X-rays of both hands done in February 2018 showed (+) mild arthritis changes at the DIP joint of the 5th fingers of both hands, with no other abnormalities noted Patient is encouraged to continue with hand and finger exercises regularly to help manage her symptoms (10) Overactive bladder: Code(s): N32.81 - Overactive bladder Category: Medical Plan: Patient was started on a trial Detrol LA 4 mg Q HS last year as she states that her trips to the bathroom frequently interrupts her sleep at night and she often feels very tired, likely from lack of sleep States that the Rx did not really help too much so she stopped taking Detrol a few months later She was then referred to urology for further management and has been started instead on Terazosin 1 mg Q HS Follow up with urology as scheduled (11) Pruritic erythematous rash: Code(s): L29.89 - Other pruritus Category: Medical Plan: (+) pruritic, sometimes painful, erythematous scaling rash on the proximal right lower leg anteriorly Will start patient for now on Triamcinolone cream 0.5% BID-TID PRN (12) History of melanoma: Code(s): Z85.820 - Personal history of malignant melanoma of skin Category: Medical Plan: Follow up with [facility] as scheduled for continuing surveillance (13) History of opioid abuse: Code(s): F11.11 - Opioid abuse, in remission Category: Medical Plan: She used to take Suboxone but was able to come off this a couple of years ago States that she has been clean for years now with no cravings or relapse (14) Anxiety: Code(s): F41.9 - Anxiety disorder, unspecified Category: Medical Plan: She used to take Lorazepam but states that she has been doing well OFF of it for several months with no flare ups of her anxiety (15) Obesity (BMI 30-39.9): Code(s): E66.9 - Obesity, unspecified Category: Medical Plan: Reinforced diet; exercise and weight loss are not realistic at this time due to her multiple physical issues and comorbidities Plan Follow up in 4 months Orders: Orders Thyroid Stimulating Hormone 4 Months E03.9 - Hypothyroidism, unspecified Lipid Panel 4 Months E78.00 - Pure hypercholesterolemia, unspecified UA CC w/rflx Micro + Cult 4 Months R30.0 - Dysuria Free T4 (Free Thyroxine) 4 Months E03.9 - Hypothyroidism, unspecified Complete Blood Count Auto Diff 4 Months D64.9 - Anemia, unspecified Comprehensive [place]. Panel Fast 4 Months E78.00 - Pure hypercholesterolemia, unspecified Calcium, Ionized 4 Months E83.52 - Hypercalcemia Vitamin D 25-OH Total 4 Months E55.9 - Vitamin D deficiency, unspecified Hemoglobin A1c 4 Months R73.01 - Impaired fasting glucose Medications: New triamcinolone acetonide 0.5% 1 appl topical BID-TID PRN 30 grams 0RF rash on leg
== END 2025-06-28 10:26 | disposition home or self-care (01) ==
LOC: HO.HMCH 09:35
PROVIDERS: PCP Internal Medicine; Visit Provider Internal Medicine
DX: E83.52 Hypercalcemia (principal); F11.11 Opioid abuse, in remission; E66.9 Obesity, unspecified; Z68.37 Body mass index [BMI] 37.0-37.9, adult; I10 Essential (primary) hypertension; J30.9 Allergic rhinitis, unspecified; M17.0 Bilateral primary osteoarthritis of knee; M19.041 Primary osteoarthritis, right hand; M19.042 Primary osteoarthritis, left hand; N32.81 Overactive bladder; L29.89 Other pruritus; F41.9 Anxiety disorder, unspecified

== ENCOUNTER → 2025-06-28 09:35 | Outpatient (BNVA) | payer OTHER, SELFPAY | PROVIDERS: PCP Internal Medicine; Visit Provider Internal Medicine | DX: I10 Essential (primary) hypertension (principal); R53.83 Other fatigue; R42 Dizziness and giddiness; M79.10 Myalgia, unspecified site; E21.0 Primary hyperparathyroidism; E78.00 Pure hypercholesterolemia, unspecified; E03.9 Hypothyroidism, unspecified; J30.9 Allergic rhinitis, unspecified; M17.0 Bilateral primary osteoarthritis of knee; M19.041 Primary osteoarthritis, right hand; M19.042 Primary osteoarthritis, left hand; N32.81 Overactive bladder; L29.89 Other pruritus; F11.11 Opioid abuse, in remission; F41.9 Anxiety disorder, unspecified; E66.9 Obesity, unspecified; R51.9 Headache, unspecified; Z85.820 Personal history of malignant melanoma of skin; Z68.37 Body mass index [BMI] 37.0-37.9, adult | CPT/HCPCS: 99212 ==